=== PATIENT | male | born 1985 | race Caucasian/White ===

== ENCOUNTER 2016-11-24 00:27 | Inpatient (IN) | payer SELFPAY ==
[2016-11-24] VITALS (13 sets, daily range): BP systolic 143–181; BP diastolic 95–113; PULSE 62–87; RESP 13–20; TEMP 97.9–98.5; O2SAT 94–100
[~2016-11-24] VITALS: Ht 180.3 cm; Wt 67.7 kg
[~2016-11-24 00:27] MED LIST: DOXY100T PO; ULTR50TA5 PO
[2016-11-24] MEDS ORDERED: IOHEXOL 350 MG/ML 10 ML VIAL (for RAD DIAG) IVCONTRAST ONE (00:28)
[2016-11-24] MEDS ORDERED: SODIUM CHLORIDE 0.9% FLUSH 10 ML FLUSH IVF PRN (00:45)
[2016-11-24] MEDS ORDERED: SODIUM CHLOR 0.9% 1000 ML INJ 1,000 ML IV ONE (00:45)
[2016-11-24 00:48] LABS: AUTOMATED NEUTROPHIL # 5.9 TH/MM3 (1.8-7.7); BASOPHIL % 0.2 % (0.0-2.0); EOSINOPHIL # 0.1 TH/MM3 (0-0.4); EOSINOPHIL % 0.7 % (0.0-4.0); HEMATOCRIT 39.3 % (39.0-51.0); HEMO FLAGS DIFF FINAL; LYMPH % 33.8 % (9.0-44.0); LYMPHOCYTE # 3.6 TH/MM3 (1.0-4.8); MEAN CELL VOLUME 80.4 FL (80.0-100.0); MEAN CORPUSCULAR HEMOGLOBIN 26.6 PG (27.0-34.0); MEAN CORPUSCULAR HGB CONC 33.1 % (32.0-36.0); MONO % 9.4 % (0.0-8.0); NEUT % 55.9 % (16.0-70.0); PLATELET COUNT 405 TH/MM3 (150-450); RED BLOOD COUNT 4.89 MIL/MM3 (4.50-5.90); RED CELL DISTRIBUTION WIDTH 16.9 % (11.6-17.2); WHITE BLOOD COUNT 10.6 TH/MM3 (4.0-11.0)
[2016-11-24 01:02] LABS: APTT (PATIENT) 25.1 SEC (24.3-30.1)
[2016-11-24 01:06] LABS: BICARBONATE 27.7 MEQ/L (21.0-32.0)
[2016-11-24 01:08] LABS: POTASSIUM 2.6 MEQ/L (3.5-5.1)
--- NOTE | 2016-11-24 01:10 | PD ---
HPI Chief Complaint: RUE injury Time Seen by Provider: 00:31 Travel History International Travel<30 days: No Contact w/Intl Traveler<30days: No Traveled to known affect area: No History of Present Illness HPI 31-year-old male presents to the emergency department for complaint of severe pain in the forearm of the right upper extremity and inability to feel or move his right hand or fingers after injecting Michelle. Patient reports injecting Michelle approximately 20 minutes prior to arrival to the emergency department and onset of symptoms began shortly after he injected Michelle into the right upper extremity just proximal to the antecubital fossa. Patient denies other concerns or complaints. Denies any swelling of the arm or forearm. Denies other injury to the extremity prior to injecting the Michelle. No chest pain or shortness of breath no upper arm or axilla pain. PFSH Past Medical History Asthma: Yes (as a child) Heart Rhythm Problems: Yes (hx of svt) Diminished Hearing: No Kidney Stones: Yes Musculoskeletal: Yes (CHRONIC NECK AND BACK PAIN) Immunizations Current: No Social History Alcohol Use: Yes (occas. beer) Tobacco Use: No (quit 2 yrs ago smoked 1/2 ppd) Substance Use: Yes (hx of iv dilaudid and smoked Pot) Allergies-Medications (Allergen,Severity, Reaction): Coded Allergies: No Known Allergies (Verified , 11/24/16) Reported Meds & Prescriptions Reported Meds & Active Scripts Active No Active Prescriptions or Reported Medications Review of Systems Except as stated in HPI: all other systems reviewed are Neg General / Constitutional: No: Fever HENT: No: Congestion Cardiovascular: No: Chest Pain or Discomfort Respiratory: No: Shortness of Breath Gastrointestinal: No: Nausea, Vomiting Genitourinary: No: Flank Pain Musculoskeletal: Positive: Cramping, Pain (severe RUE pain) Skin: No Rash Neurologic: Positive: Paresthesia, No: Weakness Hematologic/Lymphatic: No: Lymph Node Enlargement Physical Exam Narrative GENERAL: Well-developed well-nourished male in obvious distress no respiratory distress SKIN: Warm and dry. HEAD: Normocephalic. EYES: No scleral icterus. No injection or drainage. NECK: Supple, trachea midline. No JVD or lymphadenopathy. CARDIOVASCULAR: Regular rate and rhythm without murmurs, gallops, or rubs. RESPIRATORY: Breath sounds equal bilaterally. No accessory muscle use. GASTROINTESTINAL: Abdomen soft, non-tender, nondistended. MUSCULOSKELETAL: No cyanosis, or edema. Attention right upper extremity patient has glove like distribution of right hand pallor and coolness of the right hand with inability to perform active range of motion and no pain on passive range of motion of each digit with no capillary refill is identified; patient does have palpable 2+ radial aa pulse palpable 1 +ulnar aa pulse palpable 2 + brachial aa pulses and palpable 2+ axillary aa pulse as well as pulses are confirmed by Doppler at bedside. No pain in forearm with range of motion of the right wrist at elbow or of the shoulder. No edema of the upper arm, forearm or hand. BACK: Nontender without obvious deformity. No CVA tenderness. Data Data Last Documented VS Vital Signs Date Time Temp Pulse Resp B/P (MAP) Pulse Ox O2 Delivery O2 Flow Rate FiO2 11/24/16 02:45 74 20 174/95 (121) 100 Room Air 11/24/16 00:30 98.2 Orders Orders Electrocardiogram (11/24/16 00:31) Basic Metabolic Panel (Bmp) (11/24/16 00:31) Complete Blood Count With Diff (11/24/16 00:31) Magnesium (Mg) (11/24/16 00:31) Prothrombin Time / Inr (Pt) (11/24/16 00:31) Act Partial Throm Time (Ptt) (11/24/16 00:31) Ecg Monitoring (11/24/16 00:31) Bilateral Bp Monitoring (11/24/16 00:31) Iv Access Insert/Monitor (11/24/16 00:31) Oximetry (11/24/16 00:31) Oxygen Administration (11/24/16 00:31) Sodium Chloride 0.9% Flush (Ns Flush) (11/24/16 00:45) Drug Screen, Random Urine (11/24/16 00:31) Cta Up Extrem W Iv Cont W 3d (11/24/16 ) Sodium Chlor 0.9% 1000 Ml Inj (Ns 1000 M (11/24/16 00:45) NPO (11/24/16 01:12) Potassium Chlor 10 Meq Premix (Kcl 10 Me (11/24/16 01:15) Ondansetron Inj (Zofran Inj) (11/24/16 01:30) Morphine Inj (Morphine Inj) (11/24/16 01:30) Forearm (2vws) (11/24/16 ) Hand, Complete ([id number]) (11/24/16 ) Iohexol 350 Inj (Omnipaque 350 Inj) (11/24/16 00:28) Heparin Inj (Heparin Inj) (11/24/16 02:45) Heparin-D5w 25,000 U/250 Ml (Heparin-D5w (11/24/16 02:45) Cbc No Diff, Includes Plts (11/27/16 06:00) Act Partial Throm Time (Ptt) (11/24/16 09:36) Occult Blood (Hemoccult) Stool (11/24/16 02:36) Admit Order (Ed Use Only) (11/24/16 02:47) Type And Screen (11/24/16 02:49) Admit To Inpatient (11/24/16 ) Vital Signs (Adult) Q4H (11/24/16 02:47) Diet Npo (11/24/16 Breakfast) Sodium Chlor 0.9% 1000 Ml Inj (Ns 1000 M (11/24/16 02:47) Sodium Chloride 0.9% Flush (Ns Flush) (11/24/16 03:00) Sodium Chloride 0.9% Flush (Ns Flush) (11/24/16 09:00) Ondansetron Inj (Zofran Inj) (11/24/16 03:00) Comprehensive Metabolic Panel (11/25/16 06:00) Complete Blood Count With Diff (11/25/16 06:00) Scd Bilateral/Knee High PARISA.BID (11/24/16 02:47) Hydromorphone Pf Inj (Dilaudid Pf Inj) (11/24/16 03:00) Hydromorphone Pf Inj (Dilaudid Pf Inj) (11/24/16 03:00) Naloxone Inj (Narcan Inj) (11/24/16 03:00) Magnesium Hydroxide Liq (Milk Of Magnesi (11/24/16 03:00) Inpatient Certification (11/24/16 ) Potassium Chlor 20 Meq Premix (Kcl 20 Me (11/24/16 03:00) Labs Laboratory Tests Test 11/24/16 00:35 11/24/16 01:25 White Blood Count 10.6 TH/MM3 Red Blood Count 4.89 MIL/MM3 Hemoglobin 13.0 GM/DL Hematocrit 39.3 % Mean Corpuscular Volume 80.4 FL Mean Corpuscular Hemoglobin 26.6 PG Mean Corpuscular Hemoglobin Concent 33.1 % Red Cell Distribution Width 16.9 % Platelet Count 405 TH/MM3 Mean Platelet Volume 7.5 FL Neutrophils (%) (Auto) 55.9 % Lymphocytes (%) (Auto) 33.8 % Monocytes (%) (Auto) 9.4 % Eosinophils (%) (Auto) 0.7 % Basophils (%) (Auto) 0.2 % Neutrophils # (Auto) 5.9 TH/MM3 Lymphocytes # (Auto) 3.6 TH/MM3 Monocytes # (Auto) 1.0 TH/MM3 Eosinophils # (Auto) 0.1 TH/MM3 Basophils # (Auto) 0.0 TH/MM3 CBC Comment DIFF FINAL Differential Comment Prothrombin Time 11.0 SEC Prothromb Time International Ratio 1.0 RATIO Activated Partial Thromboplast Time 25.1 SEC Blood Urea Nitrogen 7 MG/DL Creatinine 0.95 MG/DL Random Glucose 147 MG/DL Calcium Level 8.6 MG/DL Magnesium Level 2.0 MG/DL Sodium Level 136 MEQ/L Potassium Level 2.6 MEQ/L Chloride Level 98 MEQ/L Carbon Dioxide Level 27.7 MEQ/L Anion Gap 10 MEQ/L Estimat Glomerular Filtration Rate 92 ML/MIN Urine Opiates Screen POS Urine Barbiturates Screen NEG Urine Amphetamines Screen NEG Urine Benzodiazepines Screen POS Urine Cocaine Screen POS Urine Cannabinoids Screen POS MDM Medical Decision Making Medical Screen Exam Complete: Yes Emergency Medical Condition: Yes Medical Record Reviewed: Yes Interpretation(s) CBC & BMP Diagram 11/24/16 00:35 Calcium Level 8.6, Magnesium Level 2.0 Vital Signs Date Time Temp Pulse Resp B/P (MAP) Pulse Ox O2 Delivery O2 Flow Rate FiO2 11/24/16 00:55 64 20 178/103 (128) 94 Room Air 11/24/16 00:50 95 Room Air 11/24/16 00:50 95 Room Air 11/24/16 00:50 70 20 171/110 (130) 95 Room Air 170/108 (128) 11/24/16 00:40 68 20 181/113 (135) 96 Room Air 11/24/16 00:30 98.2 80 20 179/111 (133) 95 EKG sinus rhythm rate [address] elevation or ectopy noted CTA RUE: CONCLUSION: 1. Occlusion of the ulnar artery approximately 5 cm distal to its origin and occlusion of the proximal radial artery associated with forearm soft tissue swelling. Findings could be related to an early compartment syndrome. Jayesh Farris MD on November 24, 2016 at 2:15 Board Certified Radiologist. This report was verified electronically. Differential Diagnosis Limb ischemia, compartment syndrome, acute foreign body embolic event, acute vessel dissection, acute chemical vasoconstriction Narrative Course @ 12:59 Ulnar pulse not palpable or Doppler-able patient en route to CT; radial brachial axillary remain palpable and confirmed with Doppler; forearm soft no tense firmness of the forearm or upper arm; Recommendation per vascular and hand surgeons--transfer to [facility] @ 1:[address] radial brachial ax pulses remain 2+ to palpation and Doppler, no ulnar aa pulse; Forearm soft non-tense muscle bellies; potassium replacement IV for K: 2.[address] with no palpable tenseness of the right forearm right hand remains pale and cold with some mild flexion is now starting to develop discomfort in the forearm with range of motion and this has been conveyed to the hand surgeon. Call back to the past year surgeon who recommends patient's care requires micro-vascular surgeon expertise and recommend patient be transferred to higher level of care facility call placed to [facility] Patient's case discussed with [facility] vascular surgeon Dr. Acosta refuses patient's transfer Patient with noted swelling of the forearm @ 2 AM rohit measurements 38/28; call placed to Dr Edward --reports can present to [facility] and perform fasciotomy; requests call to Dr Briones in interim CTA resulted and consistent with eqarly compartment syndrome --this has been conveyed to DR Edward and Dr Briones --request patient to be transferred to [facility] ED emergent; Heparin infusion started; call placed to [facility] ED MD notifying of emergent transfer and to notify Dr Santos upon patient arrival @ 3:10 AM patient leaving ED by EMS @ 3:[address] Pierre patient should be arriving soon --per Dr Pierre just arrived ; call placed to Dr Briones aware patient in E pod in the ED Critical Care Narrative Aggregate critical care time was 55 minutes. Time to perform other separately billable procedures was not included in the critical care time. My time did not include minutes spent treating any other patients simultaneously or on activities that did not directly contribute to the patient's treatment. The services I provided to this patient were to treat and/or prevent clinically significant deterioration that could result in: limb neurovascular motor dysfunction, amputation, I provided critical care services requiring my management, as noted below: Chart data review, documentation time, medication orders and management, vital sign assessments/reviewing monitor data, ordering and reviewing lab tests, ordering and interpreting/reviewing x-rays and diagnostic studies, care of the patient and discussion of the patient with the admitting physicians. Physician Communication Physician Communication discussed with Dr Victor vascular surgeon; discussed with Dr Edward hand surgeon; call placed to [facility] discussed with patient with Dr Acosta @ 1:38 AM will not accept patient in transfer of care as we have vascular surgeon; call placed to Dr Edward and Dr Briones; CTA resulted 2:31 --will accept patient transfer ED to ED to OR, admit to medicine service; call placed to [facility] ED Dr Pierre; discussed with Dr Jerome Diagnosis Primary Impression: Ischemia of hand Additional Impressions: Ischemia of digits of hand Compartment syndrome of hand Qualified Codes: T79.A11A - Traumatic compartment syndrome of right upper extremity, initial encounter Compartment syndrome of right upper extremity Qualified Codes: T79.A11A - Traumatic compartment syndrome of right upper extremity, initial encounter Admitting Information Admitting Physician Requests: Admit Scripts No Active Prescriptions or Reported Meds Jane Orozco MD Nov 24, 2016 01:10
[2016-11-24] MEDS ORDERED: POTASSIUM CHLOR 10 MEQ PREMIX 100 ML IV SCH (01:15)
[2016-11-24] MEDS ORDERED: MORPHINE SULFATE 4 MG/ML INJ IV PUSH ONE (01:30)
[2016-11-24] MEDS ORDERED: ONDANSETRON HCL 4 MG/2 ML VIAL IV PUSH ONE (01:30)
--- NOTE | 2016-11-24 02:07 | RADRPT ---
EXAM DATE/TIME: 11/24/2016 01:30 [facility] COMPARISON: No previous studies available for comparison. INDICATIONS : Evaluate for foreign body. Patient states numbness and muscle tightness after drug injection into arm 1 hour ago. MEDICAL HISTORY : Previous right forearm fracture SURGICAL HISTORY : None. ENCOUNTER: Initial ACUITY: 1 day PAIN SCORE: 0/10 LOCATION: Right proximal forearm FINDINGS: Two view examination of the right forearm demonstrates no evidence of fracture or dislocation. Bony mineralization is normal. The soft tissue structures are swollen. CONCLUSION: 1. Soft tissue swelling of the forearm. No radiopaque foreign body or acute bony abnormality. Jayesh Farris MD on November 24, 2016 at 2:05 Board Certified Radiologist. This report was verified electronically.
--- NOTE | 2016-11-24 02:09 | RADRPT ---
EXAM DATE/TIME: 11/24/2016 01:30 [facility] COMPARISON: No previous studies available for comparison. INDICATIONS : Evaluate for foreign body. Patient states numbness and muscle tightness after drug injection into arm 1 hour ago. MEDICAL HISTORY : None. SURGICAL HISTORY : None. ENCOUNTER: Initial ACUITY: 1 day PAIN SCORE: 0/10 LOCATION: Right entire hand FINDINGS: Three view examination of the right hand demonstrates no soft tissue swelling, dislocation, or fractu re. The carpal bones appear intact. The interphalangeal and metacarpophalangeal joints are intact. Bony mineralization is normal. CONCLUSION: 1. No acute findings. No radiopaque foreign body identified. Jayesh Farris MD on November 24, 2016 at 2:06 Board Certified Radiologist. This report was verified electronically.
--- NOTE | 2016-11-24 02:27 | RADRPT ---
EXAM DATE/TIME: 11/24/2016 01:01 [facility] COMPARISON: No previous studies available for comparison. INDICATIONS : Patient states he injected himself in the right AC with an unknown drug and now has no feeling in his lower arm and hand. IV CONTRAST: 95 cc Omnipaque 350 (iohexol) IV RADIATION DOSE: 7.11 CTDIvol (mGy) MEDICAL HISTORY : None SURGICAL HISTORY : None. ENCOUNTER: Initial ACUITY: 1 day PAIN SCALE: 9/10 LOCATION: Right distal arm TECHNIQUE: Volumetric scanning was performed using a multirow detector CT scanner. Using automated exposure cont rol and adjustment of the mA and/or kV according to patient size, radiation dose was kept as low as r easonably achievable to obtain optimal diagnostic quality images. The data was post processed with a variety of visualization algorithms including full-volume maximum intensity projection, multiplanar sliding thin-slab reformation, curved-planar reformation, and surface-rendering techniques. Using au tomated exposure control and adjustment of the mA and/or kV according to patient size, radiation dose was kept as low as reasonably achievable to obtain optimal diagnostic quality images. DICOM format image data is available electronically for review and comparison. FINDINGS: The subclavian, axillary and brachial arteries are patent. The adjacent veins are also patent in the upper arm. The brachial artery is seen to bifurcate into radial and ulnar arteries in the antecubital region. Th e ulnar artery becomes occluded about 5 cm beyond its origin in the forearm musculature. The radial a rtery also appears to become occluded proximally. There is some patent predominantly venous vasculatu re subcutaneously noted along the radius. There is soft tissue swelling in the forearm musculature. CONCLUSION: 1. Occlusion of the ulnar artery approximately 5 cm distal to its origin and occlusion of the proxima l radial artery associated with forearm soft tissue swelling. Findings could be related to an early c ompartment syndrome. Jayesh Farris MD on November 24, 2016 at 2:15 Board Certified Radiologist. This report was verified electronically.
[2016-11-24] MEDS ORDERED: HEPARIN-D5W 25,000 U/250 ML 250 ML IV PRN (02:45)
[2016-11-24] MEDS ORDERED: HEPARIN SODIUM - IV 10,000 UNITS/10 ML VIAL IV PUSH ONE (02:45)
--- NOTE | 2016-11-24 02:45 | PD.ORT.PN ---
Objective Vitals Vital Signs Date Time Temp Pulse Resp B/P (MAP) Pulse Ox O2 Delivery O2 Flow Rate FiO2 11/24/16 01:50 68 20 177/107 (130) 96 Room Air 11/24/16 01:20 82 20 180/102 (128) 98 Room Air 11/24/16 00:55 64 20 178/103 (128) 94 Room Air 11/24/16 00:50 95 Room Air 11/24/16 00:50 95 Room Air 11/24/16 00:50 70 20 171/110 (130) 95 Room Air 170/108 (128) 11/24/16 00:40 68 20 181/113 (135) 96 Room Air 11/24/16 00:30 98.2 80 20 179/111 (133) 95 I/O 11/23/16 11/23/16 11/23/16 11/24/16 11/24/16 11/24/16 07:00 15:00 23:00 07:00 15:00 23:00 Intake Total 1000 ml Output Total 100 ml Balance 900 ml Intake IV Total 1000 ml Output Urine Total 100 ml # Voids 1 Result Diagram: 11/24/16 0035 11/24/16 0035 Other Results Laboratory Tests Test 11/24/16 00:35 Prothromb Time International Ratio 1.0 RATIO Prothrombin Time 11.0 SEC (9.8-11.6) Assessment & Plan Assessment and Plan Called by ER physician Dr Orozco around 12:42am for patient with cold hand without capillary refill but palpable radial pulse and soft forearm and hand compartments after IVDU. Patient on way to CTA. I Recommend transfer to level 1 trauma center for microvascular consult. Called again by ER around 2:03am stating worsening swelling of forearm with concern for compartment syndrome. No change in hand exam. CTA showed occlusion of radial and ulnar arteries. Local level 1 trauma centers refused patient. Discussed case with Dr Hardwick of trauma/vascular surgery and Dr Orozco. Dr Hardwick stated he would perform fasciotomies at [facility] and perform vascular surgery and that my services were not needed at this time. If patient requires future care of the hand including possible amputations he should be transferred to level 1 trauma center for possible reconstruction. Kayla Edward MD Nov 24, 2016 02:45
[2016-11-24] MEDS: SODIUM CHLOR 0.9% 1000 ML INJ 1,000 ML IV SCH ×3 (02:47→21:37)
[2016-11-24] MEDS: POTASSIUM CHLOR 20 MEQ PREMIX 100 ML IV SCH ×2 (03:00→08:04)
[2016-11-24] MEDS ORDERED: ONDANSETRON HCL 4 MG/2 ML VIAL IVP PRN (03:00)
[2016-11-24] MEDS ORDERED: NALOXONE HCL 0.4 MG/ML AMP IV PUSH PRN (03:00)
[2016-11-24] MEDS ORDERED: SODIUM CHLORIDE 0.9% FLUSH 10 ML FLUSH IV FLUSH PRN ×2 (03:00→05:30)
[2016-11-24] MEDS ORDERED: HYDROmorphone HCL PF 1 MG/ML VIAL IV PUSH ONE (03:00)
[2016-11-24] MEDS ORDERED: MAGNESIUM HYDROXIDE SUSP 30 ML CUP PO PRN (03:00)
[2016-11-24] MEDS: HYDROmorphone HCL PF 1 MG/ML VIAL IV PUSH PRN ×8 (03:53→23:59)
--- NOTE | 2016-11-24 04:03 | PD ---
Physical Exam Narrative Received sign out from [place] ED physician Dr. Orozco who is transferring the pt from ED to ED for compartment syndrome of right forearm and emergent fasciotomy. Dr. Hardwick has already been called by Dr. Orozco and notified of pt's arrival. I also spoke with Dr. Hardwick. Pt is currently NPO and on heparin drip. Dr. Jerome already knows about the patient and came down to admit the patient. Pt transferred to the OR after Dr. Hardwick arrived and evaluated the patient. Data Data Last Documented VS Vital Signs Date Time Temp Pulse Resp B/P (MAP) Pulse Ox O2 Delivery O2 Flow Rate FiO2 11/24/16 02:45 74 20 174/95 (121) 100 Room Air 11/24/16 00:30 98.2 Orders Orders Electrocardiogram (11/24/16 00:31) Basic Metabolic Panel (Bmp) (11/24/16 00:31) Complete Blood Count With Diff (11/24/16 00:31) Magnesium (Mg) (11/24/16 00:31) Prothrombin Time / Inr (Pt) (11/24/16 00:31) Act Partial Throm Time (Ptt) (11/24/16 00:31) Ecg Monitoring (11/24/16 00:31) Bilateral Bp Monitoring (11/24/16 00:31) Iv Access Insert/Monitor (11/24/16 00:31) Oximetry (11/24/16 00:31) Oxygen Administration (11/24/16 00:31) Sodium Chloride 0.9% Flush (Ns Flush) (11/24/16 00:45) Drug Screen, Random Urine (11/24/16 00:31) Cta Up Extrem W Iv Cont W 3d (11/24/16 ) Sodium Chlor 0.9% 1000 Ml Inj (Ns 1000 M (11/24/16 00:45) NPO (11/24/16 01:12) Potassium Chlor 10 Meq Premix (Kcl 10 Me (11/24/16 01:15) Ondansetron Inj (Zofran Inj) (11/24/16 01:30) Morphine Inj (Morphine Inj) (11/24/16 01:30) Forearm (2vws) (11/24/16 ) Hand, Complete ([id number]) (11/24/16 ) Iohexol 350 Inj (Omnipaque 350 Inj) (11/24/16 00:28) Heparin Inj (Heparin Inj) (11/24/16 02:45) Heparin-D5w 25,000 U/250 Ml (Heparin-D5w (11/24/16 02:45) Admit Order (Ed Use Only) (11/24/16 02:47) Type And Screen (11/24/16 02:49) Admit To Inpatient (11/24/16 ) Vital Signs (Adult) Q4H (11/24/16 02:47) Sodium Chlor 0.9% 1000 Ml Inj (Ns 1000 M (11/24/16 02:47) Sodium Chloride 0.9% Flush (Ns Flush) (11/24/16 03:00) Sodium Chloride 0.9% Flush (Ns Flush) (11/24/16 09:00) Ondansetron Inj (Zofran Inj) (11/24/16 03:00) Comprehensive Metabolic Panel (11/25/16 06:00) Complete Blood Count With Diff (11/25/16 06:00) Scd Bilateral/Knee High PARISA.BID (11/24/16 02:47) Hydromorphone Pf Inj (Dilaudid Pf Inj) (11/24/16 03:00) Hydromorphone Pf Inj (Dilaudid Pf Inj) (11/24/16 03:00) Naloxone Inj (Narcan Inj) (11/24/16 03:00) Magnesium Hydroxide Liq (Milk Of Magnesi (11/24/16 03:00) Inpatient Certification (11/24/16 ) Potassium Chlor 20 Meq Premix (Kcl 20 Me (11/24/16 03:00) Labs Laboratory Tests Test 11/24/16 00:35 11/24/16 01:25 White Blood Count 10.6 TH/MM3 Red Blood Count 4.89 MIL/MM3 Hemoglobin 13.0 GM/DL Hematocrit 39.3 % Mean Corpuscular Volume 80.4 FL Mean Corpuscular Hemoglobin 26.6 PG Mean Corpuscular Hemoglobin Concent 33.1 % Red Cell Distribution Width 16.9 % Platelet Count 405 TH/MM3 Mean Platelet Volume 7.5 FL Neutrophils (%) (Auto) 55.9 % Lymphocytes (%) (Auto) 33.8 % Monocytes (%) (Auto) 9.4 % Eosinophils (%) (Auto) 0.7 % Basophils (%) (Auto) 0.2 % Neutrophils # (Auto) 5.9 TH/MM3 Lymphocytes # (Auto) 3.6 TH/MM3 Monocytes # (Auto) 1.0 TH/MM3 Eosinophils # (Auto) 0.1 TH/MM3 Basophils # (Auto) 0.0 TH/MM3 CBC Comment DIFF FINAL Differential Comment Prothrombin Time 11.0 SEC Prothromb Time International Ratio 1.0 RATIO Activated Partial Thromboplast Time 25.1 SEC Blood Urea Nitrogen 7 MG/DL Creatinine 0.95 MG/DL Random Glucose 147 MG/DL Calcium Level 8.6 MG/DL Magnesium Level 2.0 MG/DL Sodium Level 136 MEQ/L Potassium Level 2.6 MEQ/L Chloride Level 98 MEQ/L Carbon Dioxide Level 27.7 MEQ/L Anion Gap 10 MEQ/L Estimat Glomerular Filtration Rate 92 ML/MIN Urine Opiates Screen POS Urine Barbiturates Screen NEG Urine Amphetamines Screen NEG Urine Benzodiazepines Screen POS Urine Cocaine Screen POS Urine Cannabinoids Screen POS MDM Supervised Visit with CARL: No Diagnosis Primary Impression: Ischemia of hand Additional Impressions: Ischemia of digits of hand Compartment syndrome of hand Qualified Codes: T79.A11A - Traumatic compartment syndrome of right upper extremity, initial encounter Compartment syndrome of right upper extremity Qualified Codes: T79.A11A - Traumatic compartment syndrome of right upper extremity, initial encounter Scripts No Active Prescriptions or Reported Meds Loraine Pierre DO Nov 24, 2016 04:03
--- NOTE | 2016-11-24 04:05 | HHI.HP ---
[facility] No Primary Care Physician Admission Diagnosis RUE compartment syndrome; limb ischemia Diagnoses: Travel History International Travel<30 Days: No Contact w/Intl Traveler <30 Da: No Traveled to Known Affected Are: No History of Present Illness Mr. Roy is a 31-year-old male. He has a past history of IV drug abuse and polysubstance abuse. He came into the emergency department today with a stiff right forearm. This occurred approximately 20 minutes after injecting "Michelle" into his right forearm. Compartment syndrome appears to be present. The patient has no other past medical history other than IV drug abuse. He is also noted to have hypokalemia and be positive for cocaine. The patient is quite fearful about what is currently happening. Surgical intervention is planned and pending. No other complaints from the patient. He was feeling fine before this. Review of Systems Constitutional: DENIES: Fatigue, Fever, Chills, Night Sweats Eyes: DENIES: Blurred vision, Diplopia, Eye inflammation, Eye pain Ears, nose, mouth, throat: DENIES: Tinnitus, Hearing loss, Vertigo, Nasal discharge Respiratory: DENIES: Apneas, Cough, Wheezing, Shortness of breath Cardiovascular: DENIES: Chest pain, Palpitations, Syncope Gastrointestinal: DENIES: Abdominal pain, Black stools, Bloody stools Musculoskeletal: COMPLAINS OF: Joint pain, Muscle aches, Stiffness, Joint Swelling Integumentary: COMPLAINS OF: Abnormal pigmentation, DENIES: Nail changes Hematologic/lymphatic: DENIES: Bruising, Lymphadenopathy Immunologic/allergic: DENIES: Eczema, Urticaria Neurologic: COMPLAINS OF: Paresthesias, DENIES: Abnormal gait, Headache, Localized weakness Psychiatric: COMPLAINS OF: Mood changes, DENIES: Anxiety, Confusion, Hallucinations Past Family Social History Past Medical History None Past Surgical History None Reported Medications Reported Meds & Active Scripts Active No Active Prescriptions or Reported Medications Allergies: Coded Allergies: No Known Allergies (Verified , 11/24/16) Active Ordered Medications Administered Medications Medications (Trade) Dose Ordered Sig/Corby Route PRN Reason Start Time Stop Time Status Last Admin Dose Admin Heparin Sodium/ Dextrose 250 ml @ 11 mls/hr TITRATE PRN IV Coagulation management 11/24/16 02:45 11/24/16 03:03 Sodium Chloride 1,000 ml @ 100 mls/hr Q10H IV 11/24/16 02:47 11/24/16 02:47 Hydromorphone HCl (Dilaudid Pf Inj) 1 mg Q3H PRN IV PUSH BREAKTHROUGH PAIN 11/24/16 03:00 11/24/16 03:53 Potassium Chloride 100 ml @ 50 mls/hr Q2H IV 11/24/16 03:00 11/24/16 06:59 11/24/16 03:00 Family History Patient reports no positive family history Social History Marijuana, cocaine, ecstasy, and other substances or abuse next line No reported alcohol abuse No reported nicotine abuse Physical Exam Vital Signs Vital Signs Date Time Temp Pulse Resp B/P (MAP) Pulse Ox O2 Delivery O2 Flow Rate FiO2 11/24/16 03:05 11/24/16 03:03 98.2 66 18 173/104 (127) 99 11/24/16 02:45 74 20 174/95 (121) 100 Room Air 11/24/16 01:50 68 20 177/107 (130) 96 Room Air 11/24/16 01:20 82 20 180/102 (128) 98 Room Air 11/24/16 00:55 64 20 178/103 (128) 94 Room Air 11/24/16 00:50 95 Room Air 11/24/16 00:50 95 Room Air 11/24/16 00:50 70 20 171/110 (130) 95 Room Air 170/108 (128) 11/24/16 00:40 68 20 181/113 (135) 96 Room Air 11/24/16 00:30 98.2 80 20 179/111 (133) 95 Physical Exam GENERAL: NAD, A&Ox3 HEAD: Normocephalic. NECK: Supple, trachea midline. No lymphadenopathy. EYES: No scleral icterus. No injection or drainage. CARDIOVASCULAR: Regular rate and rhythm without murmurs, gallops, or rubs. RESPIRATORY: Breath sounds equal bilaterally. No accessory muscle use. GASTROINTESTINAL: Abdomen soft, non-tender, nondistended. MUSCULOSKELETAL: No cyanosis, or edema. The patient's right forearm is excruciatingly tender and firm to palpation. The patient's right hand has dusky color. SKIN: Warm and dry. NEURO: No focal neurological deficitis. Laboratory Laboratory Tests Test 11/24/16 00:35 11/24/16 01:25 White Blood Count 10.6 Red Blood Count 4.89 Hemoglobin 13.0 Hematocrit 39.3 Mean Corpuscular Volume 80.4 Mean Corpuscular Hemoglobin 26.6 Mean Corpuscular Hemoglobin Concent 33.1 Red Cell Distribution Width 16.9 Platelet Count 405 Mean Platelet Volume 7.5 Neutrophils (%) (Auto) 55.9 Lymphocytes (%) (Auto) 33.8 Monocytes (%) (Auto) 9.4 Eosinophils (%) (Auto) 0.7 Basophils (%) (Auto) 0.2 Neutrophils # (Auto) 5.9 Lymphocytes # (Auto) 3.6 Monocytes # (Auto) 1.0 Eosinophils # (Auto) 0.1 Basophils # (Auto) 0.0 CBC Comment DIFF FINAL Differential Comment Prothrombin Time 11.0 Prothromb Time International Ratio 1.0 Activated Partial Thromboplast Time 25.1 Blood Urea Nitrogen 7 Creatinine 0.95 Random Glucose 147 Calcium Level 8.6 Magnesium Level 2.0 Sodium Level 136 Potassium Level 2.6 Chloride Level 98 Carbon Dioxide Level 27.7 Anion Gap 10 Estimat Glomerular Filtration Rate 92 Urine Opiates Screen POS Urine Barbiturates Screen NEG Urine Amphetamines Screen NEG Urine Benzodiazepines Screen POS Urine Cocaine Screen POS Urine Cannabinoids Screen POS Result Diagram: 11/24/16 0035 11/24/16 003 Caprini VTE Risk Assessment Caprini VTE Risk Assessment: No/Low Risk (score <= 1) Caprini Risk Assessment Model Point Value = 1 Point Value = 2 Point Value = 3 Point Value = 5 Age 41-60 Minor surgery BMI > 25 kg/m2 Swollen legs Varicose veins or History of unexplained or recurrent spontaneous Oral contraceptives or hormone replacement Sepsis (< 1 month) Serious lung disease, including pneumonia (< 1 month) Abnormal pulmonary function Acute myocardial infarction Congestive heart failure (< 1 month) History of inflammatory bowel disease Medical patient at bed rest Age 61-74 Arthroscopic surgery Major open surgery (> 45 min) Laparoscopic surgery (> 45 min) Malignancy Confined to bed (> 72 hours) Immobilizing plaster cast Central venous access Age >= 75 History of VTE Family history of VTE Factor V Leiden Prothrombin [id number] Lupus anticoagulant Anticardiolipin antibodies Elevated serum homocysteine Heparin-induced thrombocytopenia Other congenital or acquired thrombophilia Stroke (< 1 month) Elective arthroplasty Hip, pelvis, or leg fracture Acute spinal cord injury (< 1 month) Prophylaxis Regimen Total Risk Factor Score Risk Level Prophylaxis Regimen 0-1 Low Early ambulation 2 Moderate Order ONE of the following: *Sequential Compression Device (SCD) *Heparin 5000 units SQ BID 3-4 Higher Order ONE of the following medications: *Heparin 5000 units SQ TID *Enoxaparin/Lovenox 40 mg SQ daily (WT < 150 kg, CrCl > 30 mL/min) *Enoxaparin/Lovenox 30 mg SQ daily (WT < 150 kg, CrCl > 10-29 mL/min) *Enoxaparin/Lovenox 30 mg SQ BID (WT < 150 kg, CrCl > 30 mL/min) AND/OR *Sequential Compression Device (SCD) 5 or more Highest Order ONE of the following medications: *Heparin 5000 units SQ TID (Preferred with Epidurals) *Enoxaparin/Lovenox 40 mg SQ daily (WT < 150 kg, CrCl > 30 mL/min) *Enoxaparin/Lovenox 30 mg SQ daily (WT < 150 kg, CrCl > 10-29 mL/min) *Enoxaparin/Lovenox 30 mg SQ BID (WT < 150 kg, CrCl > 30 mL/min) AND *Sequential Compression Device (SCD) Assessment and Plan Problem List: (1) Compartment syndrome of right upper extremity ICD Code: T79.A11A - Traumatic compartment syndrome of right upper extremity, initial encounter Status: Acute (2) Compartment syndrome of hand ICD Code: T79.A19A - Traumatic compartment syndrome of unspecified upper extremity, initial encounter Status: Acute (3) Ischemia of hand ICD Code: I99.8 - Other disorder of circulatory system Status: Acute (4) Ischemia of digits of hand ICD Code: I99.8 - Other disorder of circulatory system Status: Acute Assessment and Plan Assessment and plan 31-year-old male admitted with compartment syndrome of the right forearm and right hand ischemia Right forearm compartment syndrome Right hand ischemia Vascular surgery consulted Plan to go to the OR immediately Fasciotomy likely needed Risk for losing right forearm/hand IV drug abuse Polysubstance abuse Follow for any evidence of withdrawals Treat withdrawals if needed DVT prophylaxis SCDs Physician Certification 2 Midnight Certification Type: Admission for Inpatient Services Order for Inpatient Services The services are ordered in accordance with Medicare regulations or non- Medicare payer requirements, as applicable. In the case of services not specified as inpatient-only, they are appropriately provided as inpatient services in accordance with the 2-midnight benchmark. Estimated LOS (days): 5 days is the estimated time the patient will need to remain in the hospital, assuming treatment plan goals are met and no additional complications. Post-Hospital Plan: Home Problem Qualifiers (1) Compartment syndrome of right upper extremity: Qualified Codes: T79.A11A - Traumatic compartment syndrome of right upper extremity, initial encounter (2) Compartment syndrome of hand: Qualified Codes: T79.A11A - Traumatic compartment syndrome of right upper extremity, initial encounter Catalino Jerome MD Nov 24, 2016 04:04
[2016-11-24] MEDS ORDERED: Post-op Orders (for Pharmacy) MISC XX ONE (05:30)
[2016-11-24] MEDS ORDERED: MEPERIDINE HCL 25 MG/ML VIAL IV PUSH PRN (05:50)
--- NOTE | 2016-11-24 05:51 | MP ---
cc: MICHELL OZUNA MD DATE OF SURGERY 11/24/2016 PREOPERATIVE DIAGNOSES 1. Ischemia of the right arm. 2. Compartment syndrome of the right lower arm status post injection of illegal drugs. OPERATIVE PROCEDURE 1. Right arm volar and dorsal fasciotomy. 2. Exploration of the vessels. 3. Wound VAC placement. SURGEON MD Anali ANESTHESIA General. ESTIMATED BLOOD LOSS 30 cc INDICATIONS FOR PROCEDURE This is 31-year-old male came to the [place] ER complaining of pain in the right arm after he injected crystal meth. The patient in next two hours developed compartment syndrome, underwent CT angiogram which revealed basically occlusion of the radial and ulnar arteries down the arm, hence the surgery. DETAILS OF PROCEDURE The patient prepped and draped in the usual fashion. The outline of both dorsal and volar fasciotomies are made by marker. Care is taken to start the incision in such a fashion as to go obliquely across the joints including the antecubital fossa as well as the wrist. Incision is now started from proximal to distal, carried out in an oblique fashion down and then toward the wrist and toward the thenar eminence. Incision is deepened with cautery. Small bleeders are coagulated and the antecubital vein is ligated. The fascia is now opened and muscle released. Muscle bulges out right away and it is viable. Care is taken to ligate the antecubital vein and open this fascia widely. The same is done at the level of the wrist where incision is carried down over to the thenar eminence and the carpal tunnel is released. The area is now irrigated with copious amounts of saline, meticulous hemostasis obtained. The brachial, ulnar and radial arteries are now explored initially with a Doppler. There is excellent brisk brachial pulse, ulnar and radial pulse throughout the vessel all the way down to the wrist. Satisfied with this outcome, the area is once more irrigated, then the arm is turned and dorsal fasciotomy is carried out basically straight up and down. Once this is completed, meticulous hemostasis is assured and then wound VAC placed. The patient tolerated the procedure well, is taken to the ICU. Michell PIERCE/CARIDAD /5:26 AM 5:34 AM
[2016-11-24] MEDS ORDERED: ENALAPRILAT 1.25 MG/ML VIAL ONE (06:31)
[2016-11-24] MEDS ORDERED: *morphine SULFATE 8 MG/ML PERIprocedure ONLY ONE (06:41)
[2016-11-24] MEDS ORDERED: DO NOT ADM ANY ANTICOAGULANT DRUGS PRN (06:45)
[2016-11-24] MEDS ORDERED: SODIUM CHLORIDE 0.9% FLUSH 10 ML FLUSH IV FLUSH SCH (09:00)
[2016-11-24] MEDS: SODIUM CHLORIDE 0.9% FLUSH 10 ML FLUSH IV FLUSH SCH ×2 (09:00→21:00)
--- NOTE | 2016-11-24 09:07 | EKG ---
Date Performed: 11/24/2016 Time Performed: 00:32:48 PTAGE: 31 years EKG: Sinus rhythm WITH SINUS ARRHYTHMIA NORMAL ECG PREVIOUS TRACING : 10/17/2014 13.16 No significant change from previous tracing noted. DOCTOR: Simon Pineda Interpretating Date/Time 11/24/2016 09:07:21
--- NOTE | 2016-11-24 09:59 | HHI.PR ---
Subjective Remarks Follow-up ischemia right hand/compartment syndrome right hand 11/24/16-patient seen and examined, status post right hand fasciotomy with wound VAC placement. Complains of poorly controlled pain. Afebrile Objective Vitals Vital Signs Date Time Temp Pulse Resp B/P (MAP) Pulse Ox O2 Delivery O2 Flow Rate FiO2 11/24/16 08:29 17 11/24/16 07:16 98.4 82 22 179/95 (123) 99 Room Air 11/24/16 07:00 71 22 159/101 (120) 99 Room Air 11/24/16 06:45 70 22 149/90 (109) 99 Room Air 11/24/16 06:30 70 22 164/94 (117) 98 Room Air 11/24/16 06:15 73 18 155/103 (120) 99 Room Air 11/24/16 06:00 96 20 167/103 (124) 100 Room Air 11/24/16 05:45 97.8 80 20 172/100 (124) 95 Simple Mask 6 11/24/16 04:17 11/24/16 04:00 71 20 162/106 (124) 97 Room Air 11/24/16 03:05 11/24/16 03:03 98.2 66 18 173/104 (127) 99 11/24/16 02:45 74 20 174/95 (121) 100 Room Air 11/24/16 01:50 68 20 177/107 (130) 96 Room Air 11/24/16 01:20 82 20 180/102 (128) 98 Room Air 11/24/16 00:55 64 20 178/103 (128) 94 Room Air 11/24/16 00:50 95 Room Air 11/24/16 00:50 95 Room Air 11/24/16 00:50 70 20 171/110 (130) 95 Room Air 170/108 (128) 11/24/16 00:45 Room Air 11/24/16 00:40 68 20 181/113 (135) 96 Room Air 11/24/16 00:30 98.2 80 20 179/111 (133) 95 I/O 11/23/16 11/23/16 11/23/16 11/24/16 11/24/16 11/24/16 07:00 15:00 23:00 07:00 15:00 23:00 Intake Total 2860 ml Output Total 755 ml 250 ml Balance 2105 ml -250 ml Intake Oral 60 ml IV Total 1800 ml Other 1000 ml Output Urine Total 750 ml 250 ml Estimated Blood Loss 5 ml # Voids 1 Result Diagram: 11/24/163411/24/1634 Objective Remarks GENERAL: NAD SKIN: Warm and dry. HEAD: Normocephalic. EYES: No scleral icterus. No injection or drainage. NECK: Supple, trachea midline. No JVD or lymphadenopathy. CARDIOVASCULAR: Regular rate and rhythm without murmurs, gallops, or rubs. RESPIRATORY: Breath sounds equal bilaterally. No accessory muscle use. GASTROINTESTINAL: Abdomen soft, non-tender, nondistended. MUSCULOSKELETAL: No cyanosis, or edema. Wound VAC in place; R>L hand in size; neurovascular intact BACK: Nontender without obvious deformity. No CVA tenderness. Procedures 1. Right arm volar and dorsal fasciotomy. 2. Exploration of the vessels. 3. Wound VAC placement. A/P Problem List: (1) Compartment syndrome of right upper extremity ICD Code: T79.A11A - Traumatic compartment syndrome of right upper extremity, initial encounter Status: Acute (2) Compartment syndrome of hand ICD Code: T79.A19A - Traumatic compartment syndrome of unspecified upper extremity, initial encounter Status: Acute (3) Ischemia of hand ICD Code: I99.8 - Other disorder of circulatory system Status: Acute (4) Ischemia of digits of hand ICD Code: I99.8 - Other disorder of circulatory system Status: Acute Assessment and Plan 31-year-old male with Ischemia of right hand Compartment syndrome or right upper extremity Status post 1. Right arm volar and dorsal fasciotomy. 2. Exploration of the vessels.3. Wound VAC placement. Management by vascular surgery Wound VAC management per surgery Adjust pain management accordingly Elevated BP without diagnosis of hypertension 2/2 poorly controlled pain Vasotec when necessary Consider low-dose BB if no improvement Hypokalemia Replace electrolyte and monitor IVDU Counseled to quit Check hepatitis profile secondary to history of IV drug use DVT prophylaxis: Bilateral SCDs Transfer to [facility] Problem Qualifiers (1) Compartment syndrome of right upper extremity: Qualified Codes: T79.A11A - Traumatic compartment syndrome of right upper extremity, initial encounter (2) Compartment syndrome of hand: Qualified Codes: T79.A11A - Traumatic compartment syndrome of right upper extremity, initial encounter Bear Bunch MD Nov 24, 2016 09:59
[2016-11-24] MEDS ORDERED: ENALAPRILAT 2.5 MG/2 ML VIAL IV PUSH PRN (10:00)
[2016-11-24] MEDS ORDERED: POTASSIUM CHLORIDE 10 MEQ CONTROLLED RELEASE TAB PO ONE (10:45)
[2016-11-24] MEDS: ACETAMINOPHEN/HYDROcodone 325 MG/10 MG TAB PO PRN ×3 (11:06→22:31)
--- NOTE | 2016-11-24 13:49 | PD.CAR.PN ---
CVT Progress Note Subjective/Hospital Course: 11/24/16 Patient is status post the fasciotomy of the right arm with retrieval of excellent proximal and distal pulses Wound VAC in place draining serous and serosanguineous fluid Patient can move available with ease has partial sensation in the hand and has excellent strong palpable and dopplerable brachial pulse and Doppler brisk radial and ulnar pulse Due to hand swelling capillary refill in fingers is still decreased but hand is warm While the swelling of the arm has decreased somewhat it'll take a long time before the arm can be closed either by a skin graft or acellular matrix followed by skin graft Hand this no more swollen than yesterday and I have called Dr. Edward the hand surgeon for patient will probably need fasciotomy of the hand which is in the domain of the in pre billing specialist Objective: Vital Signs Date Time Temp Pulse Resp B/P (MAP) Pulse Ox O2 Delivery O2 Flow Rate FiO2 11/24/16 12:00 98.5 70 13 162/101 (121) 97 11/24/16 12:00 67 11/24/16 10:26 97 21 11/24/16 09:50 15 11/24/16 08:29 17 11/24/16 08:00 99 Room Air 11/24/16 08:00 62 11/24/16 08:00 97.9 87 18 163/104 (123) 97 11/24/16 07:16 98.4 82 22 179/95 (123) 99 Room Air 11/24/16 07:00 71 22 159/101 (120) 99 Room Air 11/24/16 06:45 70 22 149/90 (109) 99 Room Air 11/24/16 06:30 70 22 164/94 (117) 98 Room Air 11/24/16 06:15 73 18 155/103 (120) 99 Room Air 11/24/16 06:00 96 20 167/103 (124) 100 Room Air 11/24/16 05:45 97.8 80 20 172/100 (124) 95 Simple Mask 6 11/24/16 04:17 11/24/16 04:00 71 20 162/106 (124) 97 Room Air 11/24/16 03:05 11/24/16 03:03 98.2 66 18 173/104 (127) 99 11/24/16 02:45 74 20 174/95 (121) 100 Room Air 11/24/16 01:50 68 20 177/107 (130) 96 Room Air 11/24/16 01:20 82 20 180/102 (128) 98 Room Air 11/24/16 00:55 64 20 178/103 (128) 94 Room Air 11/24/16 00:50 95 Room Air 11/24/16 00:50 95 Room Air 11/24/16 00:50 70 20 171/110 (130) 95 Room Air 170/108 (128) 11/24/16 00:45 Room Air 11/24/16 00:40 68 20 181/113 (135) 96 Room Air 11/24/16 00:30 98.2 80 20 179/111 (133) 95 Result Diagram: 11/24/16 0035 11/24/16 0035 Michell Briones MD Nov 24, 2016 13:49
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
[2016-11-24] MEDS ORDERED: HYDROmorphone HCL PF 2 MG/ML VIAL ONE (16:19)
[2016-11-24] MEDS ORDERED: LACTATED RINGER'S 1000 ML INJ 2,000 ML ONE (16:48)
[2016-11-24] MEDS ORDERED: ceFAZolin INJ 1,000 MG VIAL IV ONE (17:22)
[2016-11-24] MEDS ORDERED: NEOMYCIN/POLYMYXIN 1 ML G.U. IRRIGANT IRRIGATION ONE (17:34)
[2016-11-24] MEDS ORDERED: *HYDROmorphone PF 1 MG VIAL PERIprocedural Use ONLY ONE ×2 (21:24→21:47)
--- NOTE | 2016-11-24 22:12 | PD.ORT.PN ---
Subjective Subjective Remarks Please see dictated notes for full details. Preoperatively patient reported decreased ROM right hand, paresthesias globally right hand, and worsening pain right hand. He is right hand dominant and admits to injecting Michelle into his right arm early this morning. Objective Vitals Vital Signs Date Time Temp Pulse Resp B/P (MAP) Pulse Ox O2 Delivery O2 Flow Rate FiO2 11/24/16 16:00 98.3 65 16 143/101 (115) 97 11/24/16 16:00 65 11/24/16 15:15 17 11/24/16 12:00 98.5 70 13 162/101 (121) 97 11/24/16 12:00 67 11/24/16 10:26 97 21 11/24/16 09:50 15 11/24/16 08:00 99 Room Air 11/24/16 08:00 62 11/24/16 08:00 97.9 87 18 163/104 (123) 97 11/24/16 07:16 98.4 82 22 179/95 (123) 99 Room Air 11/24/16 07:00 71 22 159/101 (120) 99 Room Air 11/24/16 06:45 70 22 149/90 (109) 99 Room Air 11/24/16 06:30 70 22 164/94 (117) 98 Room Air 11/24/16 06:15 73 18 155/103 (120) 99 Room Air 11/24/16 06:00 96 20 167/103 (124) 100 Room Air 11/24/16 05:45 97.8 80 20 172/100 (124) 95 Simple Mask 6 11/24/16 04:17 11/24/16 04:00 71 20 162/106 (124) 97 Room Air 11/24/16 03:05 11/24/16 03:03 98.2 66 18 173/104 (127) 99 11/24/16 02:45 74 20 174/95 (121) 100 Room Air 11/24/16 01:50 68 20 177/107 (130) 96 Room Air 11/24/16 01:20 82 20 180/102 (128) 98 Room Air 11/24/16 00:55 64 20 178/103 (128) 94 Room Air 11/24/16 00:50 95 Room Air 11/24/16 00:50 95 Room Air 11/24/16 00:50 70 20 171/110 (130) 95 Room Air 170/108 (128) 11/24/16 00:45 Room Air 11/24/16 00:40 68 20 181/113 (135) 96 Room Air 11/24/16 00:30 98.2 80 20 179/111 (133) 95 I/O 11/23/16 11/23/16 11/23/16 11/24/16 11/24/16 11/24/16 07:00 15:00 23:00 07:00 15:00 23:00 Intake Total 2860 ml 2380 ml Output Total 755 ml 250 ml 1250 ml Balance 2105 ml -250 ml 1130 ml Intake Oral 60 ml 480 ml IV Total 1800 ml 1900 ml Other 1000 ml Output Urine Total 750 ml 250 ml 750 ml Drainage Total 500 ml Estimated Blood Loss 5 ml # Voids 1 # Bowel Movements 0 Result Diagram: 11/24/16 0035 11/24/16 0035 Other Results Laboratory Tests Test 11/24/16 00:35 Prothromb Time International Ratio 1.0 RATIO Prothrombin Time 11.0 SEC (9.8-11.6) Imaging Last 24 hours Impressions Upper Extremity CTA 11/24/16 0000 Signed Impressions: Service Date/Time: Thursday, November 24, 2016 01:01 - CONCLUSION: 1. Occlusion of the ulnar artery approximately 5 cm distal to its origin and occlusion of the proximal radial artery associated with forearm soft tissue swelling. Findings could be related to an early compartment syndrome. Jayesh Farris MD Radius/Ulna X-Ray 11/24/16 0000 Signed Impressions: Service Date/Time: Thursday, November 24, 2016 01:30 - CONCLUSION: 1. Soft tissue swelling of the forearm. No radiopaque foreign body or acute bony abnormality. Jayesh Farris MD Hand X-Ray 11/24/16 0000 Signed Impressions: Service Date/Time: Thursday, November 24, 2016 01:30 - CONCLUSION: 1. No acute findings. No radiopaque foreign body identified. Jayesh Farris MD Objective Remarks Bulky dressing in place, VACs holding suction, 3 sec capillary refill to all fingers with dopplerable signal in the palmar arch and digital arteries Assessment & Plan Assessment and Plan 31yM POD0 s/p fasciotomies & VAC Dr Hardwick of vascular surgery now with worsening swelling right hand -Once called by Dr Hardwick scheduled patient for emergent hand fasciotomies, right carpal tunnel release, VAC change and placement, surgery as indicated -now POD0 w/p dorsal and volar deep forearm fasciotomies, carpal tunnel release , hand fasciotomies, VAC placement -Elevate right hand, OT for gentle ROM of fingers, no ROM wrist -VACs to 125mmHg continuous -VAC changes and closure per Dr Hardwick of vascular surgery, will continue to follow, patient had dopplerable signal in the palmar arch and digital arteries with 3 second capillary refill to all fingers following the procedure Kayla Edward MD Nov 24, 2016 22:12
[2016-11-24] MEDS: ENOXAPARIN SODIUM 40 MG/0.4 ML SYRINGE SQ SCH (22:31)
--- NOTE | 2016-11-24 22:47 | MB ---
cc: BRUCE KELLOGG DATE OF CONSULTATION 11/24/2016 REASON FOR CONSULTATION Concern for right hand compartment syndrome. HISTORY OF PRESENT ILLNESS Ian Roy is a 31-year-old male who initially presented to [facility] emergency room early this morning around approximately 12:30. I was called by the emergency room physician that a patient with nonpalpable pulses in the palm and a white hand but no signs of compartment syndrome. At that time I recommended consult of vascular and possible transfer to a level I trauma center for microvascular consult. I was called again by the emergency room around approximately 2:00 a.m. this morning with worsening swelling of the forearm. CTA showed occlusion of the radial and ulnar arteries in the proximal forearm. Level I trauma center refused the patient. I had a conference call with a Dr. Orozco in the emergency room and Dr. Briones of trauma/vascular surgery. I offered to perform fasciotomies of the forearm and hand at [facility] operating room but there is no team on site and would have to be called in. Dr. Briones recommended transfer of the patient to [facility] as there is a trauma team available and stated that he would perform the fasciotomies and would call me with any involvement of the hand. I was not called again until approximately at 2:[address] Briones stated that he did perform the dorsal and volar forearm fasciotomies and the patient had significant improvement in his symptoms including capillary refill to the fingers but now he had worsening swelling of the hand. At that time I recommended emergent fasciotomies of the hand. I scheduled the patient for emergent hand fasciotomies, carpal tunnel release, VAC placement surgery as indicated and presented to [facility] as soon as I finished the current surgery that I was scrubbed into at another facility. The patient states that he did inject Michelle IVD early this morning. He states he does have a past medical history significant for drug use including opiates, benzodiazepines, cocaine, marijuana and IV drug use including Dilaudid. He states he is right hand dominant. He states he does work. He reports worsening pain and paresthesias in the hand today, although somewhat improved from early this morning. He denies any prior problems with the right hand. PAST MEDICAL HISTORY SVT, back pain. SOCIAL HISTORY The patient smokes tobacco. Past medical history significant for marijuana, cocaine, benzodiazepines and opiates. Also significant for hepatitis C. ALLERGIES NO KNOWN DRUG ALLERGIES. PHYSICAL EXAMINATION GENERAL: On exam in the preop holding area the patient was alert and oriented. DIRECTED EXAMINATION: He reports pain in the hand. VAC was in place over the dorsal and volar aspects of the right forearm. The patient did have capillary refill to all of the fingers. Sensation present in the radial nerve distribution. Significantly decreased in the ulnar and median distribution but present. The patient was able to flex the thumb and fire the FPL. Unable to extend the thumb or fire the EPL. The patient had minimal range of motion of the fingers in regards to finger extension. Did have some firing to the flexor digitorum profundus of the index and middle finger. Otherwise, minimal movement of the hand. Significant swelling over the right hand. ASSESSMENT/PLAN A 31-year-old male status post forearm fasciotomies by Dr. Briones, now with worsening pain, swelling and paresthesias in the hand. At this time I recommended emergent hand fasciotomies, carpal tunnel release, placement of VAC surgery as indicated. The patient elected to proceed. He understands that he is at very high risk for long-term dysfunction of the hand including paresthesias, pain, stiffness, need for additional procedures, possible amputation and he elects to proceed. Again, this was done emergently. MD STACY Michael/VIRAJ /10:16 PM /10:32 PM ASHISH
--- NOTE | 2016-11-24 23:06 | MP ---
cc: BRUCE KELLOGG DATE OF SURGERY 11/24/16 PREOPERATIVE DIAGNOSIS 1. Compartment syndrome right hand 2. Carpal tunnel syndrome right hand. POSTOPERATIVE DIAGNOSIS 1. Compartment syndrome right hand 2. Carpal tunnel syndrome right hand. 3. Persistent compartment syndrome right forearm. PROCEDURE 1. Right hand fasciotomies 2. Right carpal tunnel release. 3. Deep dorsal forearm fasciotomies 4. Deep volar forearm fasciotomies 5. Placement of VAC dressing right forearm SURGEON Dr. Victor Hugo Kellogg ANESTHESIA General TOURNIQUET TIME 13 minutes at 250 mmHg DRAINS VAC INDICATIONS FOR PROCEDURE Please see prior notes. Nithin Roy is a 31-year-old male who injected IV drug into the right forearm and developed decreased perfusion to the right hand as well as compartment syndrome. He underwent forearm fasciotomies early this morning by Dr. Ravi around approximately 5:00 a.m.. I was called this afternoon for worsening pain, swelling, paresthesias in the hand. I recommended emergent right hand fasciotomies, right carpal tunnel release Surgery as indicated and the patient elected to proceed. Again, the patient understands he is very high risk for severe complications including amputation of the hand, persistent stiffness, persistent paresthesias, need for additional surgeries and he elected to proceed. DESCRIPTION OF PROCEDURE The patient was identified in the preoperative holding area. The patient was taken to the operating room on an emergent basis. The prior VACs were removed. Upon removing the VAC, there was noted to still be significant tightness of the forearm with incomplete release of the forearm fascia, specifically the deep compartment. The patient did have a palpable radial pulse. Right upper extremity was prepped and draped in normal sterile fashion. Attention was first turned to the right hand. Tourniquet was inflated for 13 minutes to perform a right carpal tunnel release. There was a very significant compression and swelling on the median nerve which was decompressed with care taken to protect the palmar arch, ulnar nerve, ulnar artery and median nerve. The prior incision by Dr. Briones had stopped at the level of the wrist crease and again this was extended to perform a carpal tunnel release. Then hand fasciotomies were performed by making incisions dorsally over the second and fourth metacarpals as well as the thenar eminence. There was significant edematous fluid in this area and dusky musculature with significant improvement after release of all 10 compartments of the hand. Tourniquet was released at this point. Attention was then turned to the forearm. The majority of the superficial muscle did appear to have healthy contractile tissue. There was very significant bulging of the muscle through the forearm fasciotomies. These were extended slightly proximally and distally. Care was taken to release the deep compartments both dorsally and volarly as there was significant compression and dusky musculature dorsally over the extensor pollicis longus, extensor indices proprius as well as volarly over the deep flexor compartment including the FDP. Following this release, there was significant improvement in the color and contractility of the musculature. The most involved areas again appeared to be the deep flexors as well as the EPL and EIP. Care was taken to decompress the ulnar nerve as well as the radial artery and ulnar artery. Throughout this procedure, the patient maintained palpable radial and ulnar pulses. There was significant improvement in the softness of the forearm as well as again the color and contractility of the musculature. Following this, a Doppler was used and there was dopplerable flow through the palmar arch as well as digital arteries. A VAC dressing was placed over all of the open wounds which held good suction after thorough irrigation debridement. The patient was placed into a bulky dressing, awaken from anesthesia without any complications. He will elevate the hand. He will begin gentle range of motion of the fingers but no significant range of motion of the wrist. I will speak with Dr. Briones of vascular surgery and likely he will continue the VAC changes, possible closure, and I will continue to follow the patient. The patient will likely need many multiple VAC changes, possible skin graft of the upper extremity. He may have long-term stiffness in the hand. We will continue to follow him closely. MD STACY Michael/ /10:23 PM /10:46 PM MTDLaurent
[2016-11-25] VITALS (7 sets, daily range): BP systolic 112–127; BP diastolic 63–79; PULSE 68–96; RESP 11–19; TEMP 97.3–98.5; O2SAT 95–98
[2016-11-25] MEDS: ACETAMINOPHEN/HYDROcodone 325 MG/10 MG TAB PO PRN ×4 (02:39→19:39)
[2016-11-25] MEDS: HYDROmorphone HCL PF 1 MG/ML VIAL IV PUSH PRN ×9 (02:53→21:31)
[2016-11-25 05:25] LABS: AUTOMATED NEUTROPHIL # 10.8 TH/MM3 (1.8-7.7); BASOPHIL % 0.1 % (0.0-2.0); HEMATOCRIT 40.1 % (39.0-51.0); HEMO FLAGS DIFF FINAL; LYMPH % 10.1 % (9.0-44.0); LYMPHOCYTE # 1.4 TH/MM3 (1.0-4.8); MEAN CELL VOLUME 81.3 FL (80.0-100.0); MEAN CORPUSCULAR HEMOGLOBIN 27.5 PG (27.0-34.0); MEAN CORPUSCULAR HGB CONC 33.9 % (32.0-36.0); MONO % 9.8 % (0.0-8.0); PLATELET COUNT 346 TH/MM3 (150-450); RED BLOOD COUNT 4.93 MIL/MM3 (4.50-5.90); WHITE BLOOD COUNT 13.4 TH/MM3 (4.0-11.0)
[2016-11-25 05:44] LABS: ANION GAP 8 MEQ/L (5-15); AST (GOT) 445 U/L (15-37); BICARBONATE 23.8 MEQ/L (21.0-32.0); BLOOD UREA NITROGEN 6 MG/DL (7-18); CHLORIDE 100 MEQ/L (98-107); GLOMERULAR FILTRATION RATE 123 ML/MIN (>89); POTASSIUM 4.6 MEQ/L (3.5-5.1); SODIUM (NA) 132 MEQ/L (136-145)
[2016-11-25 05:45] LABS: ALT (GPT) 103 U/L (12-78)
[2016-11-25 05:47] LABS: ALKALINE PHOSPHATASE 95 U/L (45-117); TOTAL BILIRUBIN ADULT 0.7 MG/DL (0.2-1.0)
[2016-11-25] MEDS: SODIUM CHLOR 0.9% 1000 ML INJ 1,000 ML IV SCH ×2 (06:38→09:30)
--- NOTE | 2016-11-25 07:36 | HHI.PR ---
Subjective Remarks Patient seen and examined this morning. His vitals are stable he's afebrile. Ate breakfast this am, tolerated it without any issues. Reports pain 09/21. States he is due for his pain medication. Has not passed flatus or had a BM. Reports pressure of the arm. Objective Vital Signs Date Time Temp Pulse Resp B/P (MAP) Pulse Ox O2 Delivery O2 Flow Rate FiO2 11/25/16 04:00 80 11/25/16 04:00 98.3 76 11 114/72 (86) 95 11/25/16 00:00 97.3 86 11 127/77 (94) 96 11/25/16 00:00 86 11/24/16 21:45 93 15 123/70 (87) 96 Room Air 11/24/16 21:30 96 14 126/76 (93) 95 Room Air 11/24/16 21:18 98 14 132/75 (94) 96 Room Air 11/24/16 21:17 98.1 98 14 123/81 (95) 97 Room Air 11/24/16 16:00 98.3 65 16 143/101 (115) 97 11/24/16 16:00 65 11/24/16 15:15 17 11/24/16 12:00 98.5 70 13 162/101 (121) 97 11/24/16 12:00 67 11/24/16 10:26 97 21 11/24/16 09:50 15 11/24/16 08:00 99 Room Air 11/24/16 08:00 62 11/24/16 08:00 97.9 87 18 163/104 (123) 97 I/O 11/24/16 11/24/16 11/24/16 11/25/16 11/25/16 11/25/16 07:00 15:00 23:00 07:00 15:00 23:00 Intake Total 2860 ml 5060 ml 1348 ml Output Total 755 ml 250 ml 1800 ml 725 ml Balance 2105 ml -250 ml 3260 ml 623 ml Intake Oral 60 ml 480 ml 360 ml IV Total 1800 ml 2880 ml 988 ml Other 1000 ml 1700 ml Output Urine Total 750 ml 250 ml 1200 ml 325 ml Drainage Total 500 ml 400 ml Estimated Blood Loss 5 ml 100 ml # Voids 1 1 # Bowel Movements 0 0 Result Diagram: 11/25/16 0442 11/25/16 0442 Imaging Last Impressions Upper Extremity CTA 11/24/16 0000 Signed Impressions: Service Date/Time: Thursday, November 24, 2016 01:01 - CONCLUSION: 1. Occlusion of the ulnar artery approximately 5 cm distal to its origin and occlusion of the proximal radial artery associated with forearm soft tissue swelling. Findings could be related to an early compartment syndrome. Jayesh Farris MD Radius/Ulna X-Ray 11/24/16 0000 Signed Impressions: Service Date/Time: Thursday, November 24, 2016 01:30 - CONCLUSION: 1. Soft tissue swelling of the forearm. No radiopaque foreign body or acute bony abnormality. Jayesh Farris MD Hand X-Ray 11/24/16 0000 Signed Impressions: Service Date/Time: Thursday, November 24, 2016 01:30 - CONCLUSION: 1. No acute findings. No radiopaque foreign body identified. Jayesh Farris MD Objective Remarks GENERAL: well appearing, nad SKIN: Warm and dry. Multiple tattoos. HEAD: Normocephalic. EYES: No scleral icterus. No injection or drainage. NECK: Supple, trachea midline. CARDIOVASCULAR: Regular rate and rhythm without murmurs, gallops, or rubs. RESPIRATORY: Breath sounds equal bilaterally. No accessory muscle use. GASTROINTESTINAL: Abdomen soft, non-tender, nondistended. MUSCULOSKELETAL: Right upper extremity in sling, hanging to gravity. Wound vac in place, actively draining. LE: no calf tenderness A/P Problem List: (1) Hepatitis C ICD Code: B19.20 - Unspecified viral hepatitis C without hepatic coma (2) Compartment syndrome of right upper extremity ICD Code: T79.A11A - Traumatic compartment syndrome of right upper extremity, initial encounter Status: Acute Assessment and Plan 31-year-old male with Compartment syndrome or right upper extremity S/P right hand fasciotomy, carpal tunnel release, deep dorsal forearm fasciotomy, deep volar forearm arm fasciotomy, placement VAC dressing over right arm by Dr. Edward on 11/24/16. Management by vascular surgery Adjust pain management accordingly--per surgery Hypokalemia Repleated IVDU Tox screen +opiates, +benzos, +cocaine, +cannab Counseled by multiple physicians Hepatitis C+ GI consulted DVT prophylaxis: Bilateral SCDs Transfer to [facility] Discharge Planning D/C pending surgical clearance, likely several days. GI eval pending. Problem Qualifiers (1) Compartment syndrome of right upper extremity: Qualified Codes: T79.A11A - Traumatic compartment syndrome of right upper extremity, initial encounter Mary Ji MD Nov 25, 2016 07:36
[2016-11-25] MEDS: SODIUM CHLORIDE 0.9% FLUSH 10 ML FLUSH IV FLUSH SCH ×2 (09:00→21:31)
--- NOTE | 2016-11-25 11:22 | PD.CAR.PN ---
CVT Progress Note Subjective/Hospital Course: 11/24/16 Patient is status post the fasciotomy of the right arm with retrieval of excellent proximal and distal pulses Wound VAC in place draining serous and serosanguineous fluid Patient can move available with ease has partial sensation in the hand and has excellent strong palpable and dopplerable brachial pulse and Doppler brisk radial and ulnar pulse Due to hand swelling capillary refill in fingers is still decreased but hand is warm While the swelling of the arm has decreased somewhat it'll take a long time before the arm can be closed either by a skin graft or acellular matrix followed by skin graft Hand this no more swollen than yesterday and I have called Dr. Edward the hand surgeon for patient will probably need fasciotomy of the hand which is in the domain of the in contracting support specialist 11/25/16 Patient is doing well at this time Excellent capillary refill of the distal fingers Patient is now status post fasciotomy of the right arm and subsequent fasciotomy of the right hand. Patient will transfer to the floor this point Eventually he will need grafting or a cell placement to the volar surface fasciotomy, while the dorsal surface fasciotomy will possibly close in the OR in the future Objective: Vital Signs Date Time Temp Pulse Resp B/P (MAP) Pulse Ox O2 Delivery O2 Flow Rate FiO2 11/25/16 09:45 17 11/25/16 08:22 22 11/25/16 08:00 98.5 68 16 112/69 (83) 97 11/25/16 08:00 72 11/25/16 07:00 99 Room Air 11/25/16 04:00 80 11/25/16 04:00 98.3 76 11 114/72 (86) 95 11/25/16 00:00 97.3 86 11 127/77 (94) 96 11/25/16 00:00 86 11/24/16 21:45 93 15 123/70 (87) 96 Room Air 11/24/16 21:30 96 14 126/76 (93) 95 Room Air 11/24/16 21:18 98 14 132/75 (94) 96 Room Air 11/24/16 21:17 98.1 98 14 123/81 (95) 97 Room Air 11/24/16 16:00 98.3 65 16 143/101 (115) 97 11/24/16 16:00 65 11/24/16 12:00 98.5 70 13 162/101 (121) 97 11/24/16 12:00 67 Labs: Laboratory Tests Test 11/25/16 04:42 White Blood Count 13.4 TH/MM3 (4.0-11.0) Red Blood Count 4.93 MIL/MM3 (4.50-5.90) Hemoglobin 13.6 GM/DL (13.0-17.0) Hematocrit 40.1 % (39.0-51.0) Mean Corpuscular Volume 81.3 FL (80.0-100.0) Mean Corpuscular Hemoglobin 27.5 PG (27.0-34.0) Mean Corpuscular Hemoglobin Concent 33.9 % (32.0-36.0) Red Cell Distribution Width 18.0 % (11.6-17.2) Platelet Count 346 TH/MM3 (150-450) Mean Platelet Volume 8.3 FL (7.0-11.0) Neutrophils (%) (Auto) 80.0 % (16.0-70.0) Lymphocytes (%) (Auto) 10.1 % (9.0-44.0) Monocytes (%) (Auto) 9.8 % (0.0-8.0) Eosinophils (%) (Auto) 0.0 % (0.0-4.0) Basophils (%) (Auto) 0.1 % (0.0-2.0) Neutrophils # (Auto) 10.8 TH/MM3 (1.8-7.7) Lymphocytes # (Auto) 1.4 TH/MM3 (1.0-4.8) Monocytes # (Auto) 1.3 TH/MM3 (0-0.9) Eosinophils # (Auto) 0.0 TH/MM3 (0-0.4) Basophils # (Auto) 0.0 TH/MM3 (0-0.2) CBC Comment DIFF FINAL Differential Comment Blood Urea Nitrogen 6 MG/DL (7-18) Creatinine 0.74 MG/DL (0.60-1.30) Random Glucose 133 MG/DL (74-106) Total Protein 6.8 GM/DL (6.4-8.2) Albumin 2.3 GM/DL (3.4-5.0) Calcium Level 8.2 MG/DL (8.5-10.1) Alkaline Phosphatase 95 U/L (45-117) Aspartate Amino Transf (AST/SGOT) 445 U/L (15-37) Alanine Aminotransferase (ALT/SGPT) 103 U/L (12-78) Total Bilirubin 0.7 MG/DL (0.2-1.0) Sodium Level 132 MEQ/L (136-145) Potassium Level 4.6 MEQ/L (3.5-5.1) Chloride Level 100 MEQ/L (98-107) Carbon Dioxide Level 23.8 MEQ/L (21.0-32.0) Anion Gap 8 MEQ/L (5-15) Estimat Glomerular Filtration Rate 123 ML/MIN (>89) Result Diagram: 11/25/16 0442 11/25/16 0442 Michell Briones MD Nov 25, 2016 11:22
[2016-11-25] MEDS ORDERED: NALOXONE HCL 0.4 MG/ML AMP IV PUSH PRN ×2 (15:15→16:45)
--- NOTE | 2016-11-25 15:58 | PD.CONS ---
HPI History of Present Illness This is a 31 year old male with a history of polysubstance abuse, who is currently hospitalized for compartment syndrome of the right upper extremity after he injected Joe into his right antecubital space late night/ early Sunday morning. He required fasciotomy of the right arm with placement of wound VAC x 2 on 11/24/[address] Briones. He was noted to have elevated liver enzymes with T. Bili 0.7, AST 445, ALT 103, Akl PHosph 95. He was also noted to have antibodies for hepatitis C. GI was consulted for further evaluation. He had a friend at the bedside, but stated that she could be present during the interview. He has never been told that he has hepatitis C in the past. He does report that he uses multiple pain meds such as dilaudid and tested positive for opiates, benzodiazepines, cocaine, and cannabinoids. He does use IV drugs and reports that he has shared needles in the past. He denies any known liver disease in himself or other family members. He denies any nausea, vomiting, abdominal pain, jaundice, diarrhea, constipation, melena, or hematochezia. (Yara Ramesh) PFSH Past Medical History Polysubstance abuse Past Surgical History None (Yara Ramesh) Coded Allergies: No Known Allergies (Verified , 11/24/16) Medications Allergies Coded Allergies Type Severity Reaction Last Updated Verified No Known Allergies 11/24/16 Yes Active Scripts Medications Dose Route/Sig Max Daily Dose Days Date Category No Active Prescriptions or Reported Medications Rx Family History Denies any family history of liver disease. Social History PSA with marijuana, cocaine, ecstasy, dilaudid, joe Occasional ETOH use No tobacco use. (Yara Ramesh) Review of Systems Constitutional: DENIES: Fatigue, Fever, Chills Respiratory: DENIES: Cough Cardiovascular: DENIES: Chest pain Gastrointestinal: DENIES: Abdominal pain, Black stools, Bloody stools, Constipation, Diarrhea, Nausea, Vomiting, Anorexia, Swelling of Abdomen, Hematemesis Musculoskeletal: COMPLAINS OF: Joint pain, Muscle aches, Stiffness, Joint Swelling Hematologic/lymphatic: DENIES: Bruising Neurologic: DENIES: Headache Psychiatric: DENIES: Confusion (Ramesh,Yara Dorinda PARALEGAL SPECIALIST) GI Exam Vitals I&O Vital Signs Date Time Temp Pulse Resp B/P (MAP) Pulse Ox O2 Delivery O2 Flow Rate FiO2 11/25/16 12:00 97.4 78 19 121/79 (93) 97 11/25/16 12:00 86 11/25/16 09:45 17 11/25/16 08:22 22 11/25/16 08:00 98.5 68 16 112/69 (83) 97 11/25/16 08:00 72 11/25/16 07:00 99 Room Air 11/25/16 04:00 80 11/25/16 04:00 98.3 76 11 114/72 (86) 95 11/25/16 00:00 97.3 86 11 127/77 (94) 96 11/25/16 00:00 86 11/24/16 21:45 93 15 123/70 (87) 96 Room Air 11/24/16 21:30 96 14 126/76 (93) 95 Room Air 11/24/16 21:18 98 14 132/75 (94) 96 Room Air 11/24/16 21:17 98.1 98 14 123/81 (95) 97 Room Air 11/24/16 16:00 98.3 65 16 143/101 (115) 97 11/24/16 16:00 65 I/O 11/24/16 11/24/16 11/24/16 11/25/16 11/25/16 11/25/16 07:00 15:00 23:00 07:00 15:00 23:00 Intake Total 2860 ml 5060 ml 1348 ml 480 ml Output Total 755 ml 250 ml 1800 ml 725 ml Balance 2105 ml -250 ml 3260 ml 623 ml 480 ml Intake Oral 60 ml 480 ml 360 ml IV Total 1800 ml 2880 ml 988 ml 480 ml Other 1000 ml 1700 ml Output Urine Total 750 ml 250 ml 1200 ml 325 ml Drainage Total 500 ml 400 ml Estimated Blood Loss 5 ml 100 ml # Voids 1 1 # Bowel Movements 0 0 Imaging Last Impressions Upper Extremity CTA 11/24/16 0000 Signed Impressions: Service Date/Time: Thursday, November 24, 2016 01:01 - CONCLUSION: 1. Occlusion of the ulnar artery approximately 5 cm distal to its origin and occlusion of the proximal radial artery associated with forearm soft tissue swelling. Findings could be related to an early compartment syndrome. Jayesh Farris MD Radius/Ulna X-Ray 11/24/16 0000 Signed Impressions: Service Date/Time: Thursday, November 24, 2016 01:30 - CONCLUSION: 1. Soft tissue swelling of the forearm. No radiopaque foreign body or acute bony abnormality. Jayesh Farris MD Hand X-Ray 11/24/16 0000 Signed Impressions: Service Date/Time: Thursday, November 24, 2016 01:30 - CONCLUSION: 1. No acute findings. No radiopaque foreign body identified. Jayesh Farris MD Laboratory Test 11/25/16 04:42 White Blood Count 13.4 TH/MM3 Red Blood Count 4.93 MIL/MM3 Hemoglobin 13.6 GM/DL Hematocrit 40.1 % Mean Corpuscular Volume 81.3 FL Mean Corpuscular Hemoglobin 27.5 PG Mean Corpuscular Hemoglobin Concent 33.9 % Red Cell Distribution Width 18.0 % Platelet Count 346 TH/MM3 Mean Platelet Volume 8.3 FL Neutrophils (%) (Auto) 80.0 % Lymphocytes (%) (Auto) 10.1 % Monocytes (%) (Auto) 9.8 % Eosinophils (%) (Auto) 0.0 % Basophils (%) (Auto) 0.1 % Neutrophils # (Auto) 10.8 TH/MM3 Lymphocytes # (Auto) 1.4 TH/MM3 Monocytes # (Auto) 1.3 TH/MM3 Eosinophils # (Auto) 0.0 TH/MM3 Basophils # (Auto) 0.0 TH/MM3 CBC Comment DIFF FINAL Differential Comment Blood Urea Nitrogen 6 MG/DL Creatinine 0.74 MG/DL Random Glucose 133 MG/DL Total Protein 6.8 GM/DL Albumin 2.3 GM/DL Calcium Level 8.2 MG/DL Alkaline Phosphatase 95 U/L Aspartate Amino Transf (AST/SGOT) 445 U/L Alanine Aminotransferase (ALT/SGPT) 103 U/L Total Bilirubin 0.7 MG/DL Sodium Level 132 MEQ/L Potassium Level 4.6 MEQ/L Chloride Level 100 MEQ/L Carbon Dioxide Level 23.8 MEQ/L Anion Gap 8 MEQ/L Estimat Glomerular Filtration Rate 123 ML/MIN Physical Examination HEENT: Normocephalic; atraumatic; no jaundice. CHEST: CTA CARDIAC: RRR ABDOMEN: Soft, nondistended, nontender; no hepatosplenomegaly; bowel sounds are present in all four quadrants. EXTREMITIES: Right upper extremity edematous, in colle sling, drsg d/i, wound vac x 2. pt states he cannot move fingers. TABLE ASSEMBLER: No focal deficits; alert and oriented times three. (Yara Ramesh) Assessment and Plan Plan ASSESSMENT: - Elevated LFTs. T. Bili 0.7, AST 445, ALT 103, Alk Phosph 95. No prior known hx of liver disease. Toxicology screen (+) for opiates, benzodiazepines, cocaine, cannabinoids. He reports that he injected Joe late night and almost immediately had severe pain and swelling of RUE. No n/v, abdominal pain. HCV Ab (+). Denies any known hx of this. Likely, his LFT derangement is related to polysubstance abuse, muscle injury, perhaps on possible underlying HCV infection. Will get RUQ US, HCV genotype/viral load - Hepatitis C Antibodies. Get genotype/viral load - Compartment syndrome RUE. Pt developed severe pain/swelling after injecting Joe into right ac. CTA RUE(11/24/16)---> occlusion of the ulnar artery approximately 5 cm distal to its origin and occlusion of the proximal radial artery associated with fforearm soft tissue swelling. Findings could be related to an early compartment syndrome. - PSA. Needs complete cessation. PLAN: - LYNNE - RUQ US - HCV Genotype and Viral load - Monitor LFTs - Avoid hepatotoxins - Supportive care - Further recommendations to follow based on results of above - Pt seen and examined by Dr. Valverde and myself and this note is written on his behalf (Yara Ramesh) Physician Comments Seen and examined with YUSUF, liver ramos ordered. (Marin Valverde MD) Yara Ramesh Nov 25, 2016 15:58 Marin Valverde MD Nov 25, 2016 16:20
[2016-11-25] MEDS ORDERED: HYDROMORPHONE IV SCH (16:00)
[2016-11-25] MEDS ORDERED: SODIUM CHLORIDE 0.9% IV SCH (16:00)
[2016-11-25] MEDS: HYDROmorphone HCL PCA 6 MG/30 ML IV SCH ×2 (18:44→21:57)
[2016-11-25] MEDS: ENOXAPARIN SODIUM 40 MG/0.4 ML SYRINGE SQ SCH (21:30)
[2016-11-25] MEDS: PCA - TOTAL MG DILAUDID DELIVERED PER SHIFT SCH (21:32)
[2016-11-25] MEDS ORDERED: PCA - TOTAL MG DILAUDID DELIVERED PER SHIFT SCH (22:00)
--- NOTE | 2016-11-25 22:26 | PD.ORT.PN ---
Subjective Subjective Remarks Patient reports pain right arm and paresthesias right hand worse in median nerve distribution, also in ulnar nerve distribution. Has been compliant with arm elevation Objective Vitals Vital Signs Date Time Temp Pulse Resp B/P (MAP) Pulse Ox O2 Delivery O2 Flow Rate FiO2 11/25/16 21:57 18 11/25/16 21:32 18 11/25/16 20:43 98.5 96 18 113/63 (80) 95 11/25/16 20:39 18 11/25/16 18:44 17 11/25/16 18:07 98.5 91 16 114/71 (85) 96 11/25/16 16:00 98.2 80 16 122/79 (93) 98 11/25/16 12:00 97.4 78 19 121/79 (93) 97 11/25/16 12:00 86 11/25/16 09:45 17 11/25/16 08:22 22 11/25/16 08:00 98.5 68 16 112/69 (83) 97 11/25/16 08:00 72 11/25/16 07:00 99 Room Air 11/25/16 04:00 80 11/25/16 04:00 98.3 76 11 114/72 (86) 95 11/25/16 00:00 97.3 86 11 127/77 (94) 96 11/25/16 00:00 86 I/O 11/24/16 11/24/16 11/24/16 11/25/16 11/25/16 11/25/16 07:00 15:00 23:00 07:00 15:00 23:00 Intake Total 2860 ml 5060 ml 1348 ml 480 ml 1000 ml Output Total 755 ml 250 ml 1800 ml 725 ml 400 ml Balance 2105 ml -250 ml 3260 ml 623 ml 480 ml 600 ml Intake Oral 60 ml 480 ml 360 ml 1000 ml IV Total 1800 ml 2880 ml 988 ml 480 ml Other 1000 ml 1700 ml Output Urine Total 750 ml 250 ml 1200 ml 325 ml 400 ml Drainage Total 500 ml 400 ml Estimated Blood Loss 5 ml 100 ml # Voids 1 1 # Bowel Movements 0 0 0 Result Diagram: 11/25/16 0442 11/25/16 0442 Imaging Last 24 hours Impressions Upper Extremity CTA 11/24/16 0000 Signed Impressions: Service Date/Time: Nabeel, November 24, 2016 01:01 - CONCLUSION: 1. Occlusion of the ulnar artery approximately 5 cm distal to its origin and occlusion of the proximal radial artery associated with forearm soft tissue swelling. Findings could be related to an early compartment syndrome. Jayesh Farris MD Radius/Ulna X-Ray 11/24/16 0000 Signed Impressions: Service Date/Time: Thursday, November 24, 2016 01:30 - CONCLUSION: 1. Soft tissue swelling of the forearm. No radiopaque foreign body or acute bony abnormality. Jayesh Farris MD Hand X-Ray 11/24/16 0000 Signed Impressions: Service Date/Time: Thursday, November 24, 2016 01:30 - CONCLUSION: 1. No acute findings. No radiopaque foreign body identified. Jayesh Farris MD Objective Remarks Bulky dressing in place, VACs holding suction, 3 sec capillary refill to all fingers, decreased sensation median and ulnar nerve distribution. trace flexion all fingers except thumb. able to fire fpl. improved edema to hand Assessment & Plan Assessment and Plan 31yM s/p forearm fasciotomies & VAC Dr Hardwick of vascular surgery, POD1 s/p dorsal and volar deep forearm fasciotomies, carpal tunnel release, hand fasciotomies, VAC placement -Elevate right hand, OT for gentle ROM of fingers, no ROM wrist -will continue to follow, reviewed ROM with patient, patient understands he will have long recovery and may never regain full ROM of hand, may require additional surgeries including tendon transfers -VAC changes and closure per Dr Hardwick of vascular surgery Kayla Edward MD Nov 25, 2016 22:26
[2016-11-26] VITALS (7 sets, daily range): BP systolic 115–125; BP diastolic 59–71; PULSE 80–98; RESP 16–18; TEMP 96–99; O2SAT 95–96
[2016-11-26] MEDS: HYDROmorphone HCL PCA 6 MG/30 ML IV SCH ×7 (01:46→21:33)
[2016-11-26] MEDS: PCA - TOTAL MG DILAUDID DELIVERED PER SHIFT SCH ×3 (05:52→21:35)
[2016-11-26] MEDS: HYDROmorphone HCL PF 1 MG/ML VIAL IV PUSH PRN ×3 (06:14→12:22)
[2016-11-26 07:13] LABS: AUTOMATED NEUTROPHIL # 6.3 TH/MM3 (1.8-7.7); BASOPHIL % 0.3 % (0.0-2.0); EOSINOPHIL # 0.1 TH/MM3 (0-0.4); EOSINOPHIL % 0.6 % (0.0-4.0); HEMATOCRIT 37.3 % (39.0-51.0); HEMO FLAGS DIFF FINAL; LYMPH % 26.3 % (9.0-44.0); LYMPHOCYTE # 2.7 TH/MM3 (1.0-4.8); MEAN CELL VOLUME 81.4 FL (80.0-100.0); MEAN CORPUSCULAR HEMOGLOBIN 27.1 PG (27.0-34.0); MEAN CORPUSCULAR HGB CONC 33.3 % (32.0-36.0); MONO % 11.8 % (0.0-8.0); PLATELET COUNT 314 TH/MM3 (150-450); RED BLOOD COUNT 4.58 MIL/MM3 (4.50-5.90); RED CELL DISTRIBUTION WIDTH 18.1 % (11.6-17.2); WHITE BLOOD COUNT 10.4 TH/MM3 (4.0-11.0)
[2016-11-26 07:37] LABS: BICARBONATE 28.6 MEQ/L (21.0-32.0); POTASSIUM 4.2 MEQ/L (3.5-5.1)
[2016-11-26 07:39] LABS: INDIRECT BILIRUBIN 0.4 MG/DL (0.0-0.8); TOTAL BILIRUBIN ADULT 0.5 MG/DL (0.2-1.0)
--- NOTE | 2016-11-26 07:49 | HHI.PR ---
Subjective Remarks Patient seen and examined this morning. His vitals are stable he's afebrile. No complaints, pain well controlled. Passing flatus, no BM. Objective Vital Signs Date Time Temp Pulse Resp B/P (MAP) Pulse Ox O2 Delivery O2 Flow Rate FiO2 11/26/16 07:40 16 11/26/16 06:49 19 11/26/16 05:52 18 11/26/16 05:30 99.0 94 18 125/71 (89) 96 11/26/16 04:47 18 11/26/16 01:46 18 11/26/16 00:27 98.3 98 18 118/70 (86) 95 11/25/16 21:57 18 11/25/16 21:32 18 11/25/16 20:43 98.5 96 18 113/63 (80) 95 11/25/16 20:39 18 11/25/16 18:44 17 11/25/16 18:07 98.5 91 16 114/71 (85) 96 11/25/16 16:00 98.2 80 16 122/79 (93) 98 11/25/16 12:00 97.4 78 19 121/79 (93) 97 11/25/16 12:00 86 11/25/16 08:22 22 11/25/16 08:00 98.5 68 16 112/69 (83) 97 11/25/16 08:00 72 I/O 11/25/16 11/25/16 11/25/16 11/26/16 11/26/16 11/26/16 07:00 15:00 23:00 07:00 15:00 23:00 Intake Total 1348 ml 480 ml 1000 ml 840 ml Output Total 725 ml 1300 ml 450 ml Balance 623 ml 480 ml -300 ml 390 ml Intake Oral 360 ml 1000 ml IV Total 988 ml 480 ml 840 ml Output Urine Total 325 ml 400 ml Drainage Total 400 ml 900 ml 450 ml # Voids 2 # Bowel Movements 0 0 Result Diagram: 11/26/16 0648 11/26/16 0648 Imaging Last Impressions Upper Extremity CTA 11/24/16 0000 Signed Impressions: Service Date/Time: Thursday, November 24, 2016 01:01 - CONCLUSION: 1. Occlusion of the ulnar artery approximately 5 cm distal to its origin and occlusion of the proximal radial artery associated with forearm soft tissue swelling. Findings could be related to an early compartment syndrome. Jayesh Farris MD Radius/Ulna X-Ray 11/24/16 0000 Signed Impressions: Service Date/Time: Thursday, November 24, 2016 01:30 - CONCLUSION: 1. Soft tissue swelling of the forearm. No radiopaque foreign body or acute bony abnormality. Jayesh Farris MD Hand X-Ray 11/24/16 0000 Signed Impressions: Service Date/Time: Thursday, November 24, 2016 01:30 - CONCLUSION: 1. No acute findings. No radiopaque foreign body identified. Jayesh Farris MD Objective Remarks GENERAL: well appearing, nad SKIN: Warm and dry. Multiple tattoos. HEAD: Normocephalic. EYES: No scleral icterus. No injection or drainage. NECK: Supple, trachea midline. CARDIOVASCULAR: Regular rate and rhythm without murmurs, gallops, or rubs. RESPIRATORY: Breath sounds equal bilaterally. No accessory muscle use. GASTROINTESTINAL: Abdomen soft, non-tender, nondistended. MUSCULOSKELETAL: Right upper extremity in sling, hanging to gravity. Wound vac in place, actively draining. LE: no calf tenderness A/P Problem List: (1) Hepatitis C ICD Code: B19.20 - Unspecified viral hepatitis C without hepatic coma (2) Compartment syndrome of right upper extremity ICD Code: T79.A11A - Traumatic compartment syndrome of right upper extremity, initial encounter Status: Acute Assessment and Plan 31-year-old male with Compartment syndrome or right upper extremity S/P right hand fasciotomy, carpal tunnel release, deep dorsal forearm fasciotomy, deep volar forearm arm fasciotomy, placement VAC dressing over right arm by Dr. Edward on 11/24/16. Management by vascular surgery & hand surgery, may require further surgical intervention TIRE TESTER pump -controlled pain, pericolace BID Hypokalemia Repleated IVDU Tox screen +opiates, +benzos, +cocaine, +cannab Counseled by multiple physicians Hepatitis C+ GI consulted:HCV genotype and viral load, RUQ US performed, report pending DVT prophylaxis: Bilateral SCDs Discharge Planning D/C pending surgical clearance, likely several days. Problem Qualifiers (1) Compartment syndrome of right upper extremity: Qualified Codes: T79.A11A - Traumatic compartment syndrome of right upper extremity, initial encounter Mary Ji MD Nov 26, 2016 07:49
[2016-11-26] MEDS: SODIUM CHLORIDE 0.9% FLUSH 10 ML FLUSH IV FLUSH SCH ×2 (09:16→21:35)
[2016-11-26] MEDS: ACETAMINOPHEN/HYDROcodone 325 MG/10 MG TAB PO PRN ×2 (10:24→15:21)
--- NOTE | 2016-11-26 12:29 | RADRPT ---
EXAM DATE/TIME: 11/26/2016 10:04 [facility] COMPARISON: No previous studies available for comparison. INDICATIONS : Increased lab values. MEDICAL HISTORY : Irregular heartbeat. Asthma. Kidney stones. Muscle pain. Substance use. Tobacco use. SURGICAL HISTORY : None. ENCOUNTER: Initial ACUITY: 1 day PAIN SCORE: 0/10 LOCATION: Bilateral upper quadrant MEASUREMENTS: LIVER: 16.6 cm length COMMON DUCT: 1 mm RIGHT KIDNEY: 10.4 x 4.8 x 4.4 cm SPLEEN: 14.3 cm length FINDINGS: LIVER: Liver is within normal limits for size and echogenicity. No dilated biliary ducts. The portal system is patent. There is a 1.4 cm hyperechoic mass in the right lobe. No evidence of ascites. COMMON DUCT: No intraluminal mass or stone visualized. GALLBLADDER: Contains no stones, demonstrates no wall thickening or pericholecystic fluid. PANCREAS: The visualized portions are within normal limits. RIGHT KIDNEY: No hydronephrosis, stone or mass. SPLEEN: No focal lesion. CONCLUSION: 1. There is a single 1.4 cm hyperechoic mass in the right lobe suggestive of a hemangioma. 2. No evidence of gallstones or biliary tract obstruction. Humble Mendez MD on November 26, 2016 at 12:26 Board Certified Radiologist. This report was verified electronically.
[2016-11-26] MEDS: HYDROmorphone HCL PF 2 MG/ML VIAL IV PUSH PRN ×3 (15:41→23:53)
--- NOTE | 2016-11-26 19:46 | PD.ORT.PN ---
Subjective Subjective Remarks Called by nurse for decreased capillary refill to right thumb and middle finger. Otherwise no change in paresthesias. Decreased edema to right hand Objective Vitals Vital Signs Date Time Temp Pulse Resp B/P (MAP) Pulse Ox O2 Delivery O2 Flow Rate FiO2 11/26/16 15:41 16 11/26/16 14:00 16 11/26/16 13:30 98.4 85 16 116/61 (79) 96 11/26/16 11:15 99.0 86 17 117/59 (78) 95 11/26/16 10:26 18 11/26/16 08:06 98.4 80 16 115/66 (82) 95 11/26/16 05:52 18 11/26/16 05:30 99.0 94 18 125/71 (89) 96 11/26/16 04:47 18 11/26/16 01:46 18 11/26/16 00:27 98.3 98 18 118/70 (86) 95 11/25/16 21:57 18 11/25/16 21:32 18 11/25/16 20:43 98.5 96 18 113/63 (80) 95 11/25/16 20:39 18 I/O 11/25/16 11/25/16 11/25/16 11/26/16 11/26/16 11/26/16 07:00 15:00 23:00 07:00 15:00 23:00 Intake Total 1348 ml 480 ml 1000 ml 840 ml Output Total 725 ml 1300 ml 450 ml Balance 623 ml 480 ml -300 ml 390 ml Intake Oral 360 ml 1000 ml IV Total 988 ml 480 ml 840 ml Output Urine Total 325 ml 400 ml Drainage Total 400 ml 900 ml 450 ml # Voids 2 # Bowel Movements 0 0 Result Diagram: 11/26/16 0648 11/26/16 0648 Imaging Last 24 hours Impressions Upper Extremity CTA 11/24/16 0000 Signed Impressions: Service Date/Time: Thursday, November 24, 2016 01:01 - CONCLUSION: 1. Occlusion of the ulnar artery approximately 5 cm distal to its origin and occlusion of the proximal radial artery associated with forearm soft tissue swelling. Findings could be related to an early compartment syndrome. Jayesh Farris MD Radius/Ulna X-Ray 11/24/16 0000 Signed Impressions: Service Date/Time: Thursday, November 24, 2016 01:30 - CONCLUSION: 1. Soft tissue swelling of the forearm. No radiopaque foreign body or acute bony abnormality. Jayesh Farris MD Hand X-Ray 11/24/16 0000 Signed Impressions: Service Date/Time: Thursday, November 24, 2016 01:30 - CONCLUSION: 1. No acute findings. No radiopaque foreign body identified. Jayesh Farris MD Objective Remarks Dressing removed, VAC holding suction, palpable radial pulse right, bluish coloration tip of right thumb and middle finger, strong dopplerable signal at MP crease to all fingers including thumb, index, middle, ring, and small finger , decreased sensation median and ulnar distribution Assessment & Plan Assessment and Plan 31yM s/p forearm fasciotomies & VAC Dr Hardwick of vascular surgery, POD2 s/p dorsal and volar deep forearm fasciotomies, carpal tunnel release, hand fasciotomies, VAC placement -bluish discoloration right thumb and middle finger but strong dopplerable signal base of all fingers, discussed case with Dr Hardwick. I recommend warming blanket to right hand and no caffeine or chocolate. Medication or additional vascular management or studies per Dr Hardwick. Patient may lose tips of fingers if necrosis continues. -VAC changes and closure per Dr Hardwick of vascular surgery -will continue to follow Kayla Edward MD Nov 26, 2016 19:45
[2016-11-26] MEDS: DOCUSATE SODIUM 50 MG/SENNA 8.6 MG TAB PO SCH (21:34)
[2016-11-26] MEDS: ENOXAPARIN SODIUM 40 MG/0.4 ML SYRINGE SQ SCH (21:34)
[2016-11-27] VITALS (8 sets, daily range): BP systolic 114–140; BP diastolic 62–93; PULSE 81–101; RESP 16–20; TEMP 96–99.7; O2SAT 92–99
[2016-11-27] MEDS: HYDROmorphone HCL PCA 6 MG/30 ML IV SCH ×7 (00:19→22:57)
[2016-11-27] MEDS: PCA - TOTAL MG DILAUDID DELIVERED PER SHIFT SCH ×3 (06:00→22:00)
[2016-11-27] MEDS: HYDROmorphone HCL PF 2 MG/ML VIAL IV PUSH PRN ×2 (08:50→15:21)
[2016-11-27] MEDS: SODIUM CHLORIDE 0.9% FLUSH 10 ML FLUSH IV FLUSH SCH ×2 (08:51→23:24)
[2016-11-27] MEDS: DOCUSATE SODIUM 50 MG/SENNA 8.6 MG TAB PO SCH ×2 (08:52→23:05)
--- NOTE | 2016-11-27 09:47 | HHI.GIFU ---
Subjective Remarks Resting in bed. Complains of right upper extremity pain despite the LICENSED MORTICIAN. He is able to move his fingers slightly but states it hurts and it is very difficult to move because of the swelling. He denies any nausea or vomiting or abdominal pain. (Yara Ramesh) Objective Vitals I&O Vital Signs Date Time Temp Pulse Resp B/P (MAP) Pulse Ox O2 Delivery O2 Flow Rate FiO2 11/27/16 09:15 97.5 93 18 127/77 (94) 92 11/27/16 08:52 18 11/27/16 06:10 18 11/27/16 06:00 18 11/27/16 05:32 96.0 11/27/16 05:00 99.0 101 18 114/67 (83) 96 11/27/16 03:09 18 11/27/16 00:37 98.1 98 18 122/72 (89) 95 11/27/16 00:27 18 11/27/16 00:19 18 11/26/16 23:47 96.0 11/26/16 21:35 18 11/26/16 21:33 18 11/26/16 20:00 98.2 97 18 117/68 (84) 95 11/26/16 14:00 16 11/26/16 13:30 98.4 85 16 116/61 (79) 96 11/26/16 11:15 99.0 86 17 117/59 (78) 95 11/26/16 10:26 18 I/O 11/26/16 11/26/16 11/26/16 11/27/16 11/27/16 11/27/16 07:00 15:00 23:00 07:00 15:00 23:00 Intake Total 840 ml Output Total 450 ml 950 ml Balance 390 ml -950 ml IV Total 840 ml Drainage Total 450 ml 950 ml # Voids 2 2 Imaging Last Impressions Liver Ultrasound 11/26/16 0000 Signed Impressions: Service Date/Time: Saturday, November 26, 2016 10:04 - CONCLUSION: 1. There is a single 1.4 cm hyperechoic mass in the right lobe suggestive of a hemangioma. 2. No evidence of gallstones or biliary tract obstruction. Humble Mendez MD Upper Extremity CTA 11/24/16 0000 Signed Impressions: Service Date/Time: Thursday, November 24, 2016 01:01 - CONCLUSION: 1. Occlusion of the ulnar artery approximately 5 cm distal to its origin and occlusion of the proximal radial artery associated with forearm soft tissue swelling. Findings could be related to an early compartment syndrome. Jayesh Farris MD Radius/Ulna X-Ray 11/24/16 0000 Signed Impressions: Service Date/Time: Thursday, November 24, 2016 01:30 - CONCLUSION: 1. Soft tissue swelling of the forearm. No radiopaque foreign body or acute bony abnormality. Jayesh Farris MD Hand X-Ray 11/24/16 0000 Signed Impressions: Service Date/Time: Thursday, November 24, 2016 01:30 - CONCLUSION: 1. No acute findings. No radiopaque foreign body identified. Jayesh Farris MD Physical Exam HEENT: Normocephalic; atraumatic; no jaundice. CHEST: CTA CARDIAC: RRR ABDOMEN: Soft, nondistended, nontender; no hepatosplenomegaly; bowel sounds are present in all four quadrants. EXTREMITIES: Right upper extremity edematous, elevated on pillows, wound vac drsg x 2, moves fingers slightly. 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 (Yara Ramesh [facility]) Assessment and Plan Plan ASSESSMENT: - Elevated LFTs. No prior known hx of liver disease. Toxicology screen (+) for opiates, benzodiazepines, cocaine, cannabinoids. He reports that he injected Michelle late night and almost immediately had severe pain and swelling of RUE. No n/v, abdominal pain. HCV Ab (+). Genotype and viral load pending. RUQ US ( 11/26/16)---> there is a single 1.4 cm hyperechoic Mass in the right lobe suggestive of hemangioma. No evidence of gallstones or biliary tract obstruction. LFTs are improving. T bili 0.4, AST 190, ALT 61, alkaline phosphatase 71. Likely, his LFT derangement is related to polysubstance abuse, muscle injury, perhaps on possible underlying HCV infection. - Hepatitis C Antibodies. Genotype and viral load are pending - Liver mass on RUQ US. KUs with single 1.4 cm hyperechoic mass in mendez right lobe suggestive of a hemangioma. - Compartment syndrome RUE. Pt developed severe pain/swelling after injecting Michelle into right ac. CTA RUE(11/24/16)---> occlusion of the ulnar artery approximately 5 cm distal to its origin and occlusion of the proximal radial artery associated with forearm soft tissue swelling. Findings could be related to an early compartment syndrome. S/P Fasciotomy with wound vac placement Per CVT - PSA. Needs complete cessation. PLAN: - LYNNE - AFP level - HCV Genotype and Viral load - Monitor LFTs - Avoid hepatotoxins - Supportive care - Further recommendations to follow based on results of above - Pt seen and examined by Dr. Skaggs and myself and this note is written on his behalf (Yara Ramesh) Physician Comments Patient seen and examined Agree with above Continue with current supportive care Monitor labs Not much to add from a GI standpoint Patient will need follow-up with GI post discharge It is also emphasized that he needs to be off any and all drugs in order for us to proceed with hepatitis C treatment We will sign off (Lex Skaggs MD) Yara Ramesh Nov 27, 2016 09:47 Lex Skaggs MD Nov 27, 2016 21:41
[2016-11-27] MEDS ORDERED: ACETAMINOPHEN 1000 MG/100 ML 100 ML IV ONE (11:07)
[2016-11-27] MEDS ORDERED: HYDROmorphone HCL PF 2 MG/ML VIAL ONE (11:07)
[2016-11-27] MEDS ORDERED: CHLORHEXIDINE GLUCONATE 2 % 1 PACK (2 CLOTHS) TOPICAL PRN (11:15)
[2016-11-27] MEDS ORDERED: METOPROLOL TARTRATE 25 MG TAB PO PRN (11:15)
[2016-11-27] MEDS ORDERED: SODIUM CHLORID 0.9% 500 ML IV PRN (11:15)
[2016-11-27] MEDS ORDERED: POVIDONE IODINE 5% (ANTISEPSIS KIT) 4 APPLICATIONS EACH NARE PRN (11:15)
[2016-11-27] MEDS ORDERED: LACTATED RINGER'S 1000 ML IV PRN (11:15)
[2016-11-27] MEDS ORDERED: INSULIN HUMAN REGULAR 1,000 UNITS/10 ML VIAL SQ PRN (11:15)
[2016-11-27] MEDS ORDERED: DO NOT ADM ANY ANTICOAGULANT DRUGS PRN (12:12)
[2016-11-27] MEDS ORDERED: *MEPERIDINE 25 MG INJ VIAL PERIprocedural Use ONLY ONE (12:20)
--- NOTE | 2016-11-27 13:34 | HHI.PR ---
Subjective Remarks Pain treatments are in place, patient's primary complaint is pain. Today he status post wound VAC change with debridement. No new complaints from the patient. Objective Vital Signs Date Time Temp Pulse Resp B/P (MAP) Pulse Ox O2 Delivery O2 Flow Rate FiO2 11/27/16 13:16 97.9 81 18 140/93 (109) 99 11/27/16 12:30 82 16 138/76 (96) 99 Nasal Cannula 2 11/27/16 12:20 98.3 97 16 107/68 (81) 100 Nasal Cannula 3 11/27/16 09:58 19 11/27/16 09:15 97.5 93 18 127/77 (94) 92 11/27/16 08:52 18 11/27/16 06:10 18 11/27/16 06:00 18 11/27/16 05:32 96.0 11/27/16 05:00 99.0 101 18 114/67 (83) 96 11/27/16 03:09 18 11/27/16 00:37 98.1 98 18 122/72 (89) 95 11/27/16 00:27 18 11/27/16 00:19 18 11/26/16 23:47 96.0 11/26/16 21:35 18 11/26/16 21:33 18 11/26/16 20:00 98.2 97 18 117/68 (84) 95 11/26/16 14:00 16 I/O 11/26/16 11/26/16 11/26/16 11/27/16 11/27/16 11/27/16 07:00 15:00 23:00 07:00 15:00 23:00 Intake Total 840 ml 500 ml Output Total 450 ml 950 ml 5 ml Balance 390 ml -950 ml 495 ml IV Total 840 ml Other 500 ml Drainage Total 450 ml 950 ml Estimated Blood Loss 5 ml # Voids 2 2 Result Diagram: 11/26/1664711/26/16647 Objective Remarks GENERAL: NAD, A&Ox3 HEAD: Normocephalic. NECK: Supple, trachea midline. No lymphadenopathy. EYES: No scleral icterus. No injection or drainage. CARDIOVASCULAR: Regular rate and rhythm without murmurs, gallops, or rubs. RESPIRATORY: Breath sounds equal bilaterally. No accessory muscle use. GASTROINTESTINAL: Abdomen soft, non-tender, nondistended. MUSCULOSKELETAL: No cyanosis. Patient's right arm has a large forearm wound VAC extending the length of his forearm, his hand has warmth and capillary refill. SKIN: Warm and dry. NEURO: No focal neurological deficitis. A/P Problem List: (1) Hepatitis C ICD Code: B19.20 - Unspecified viral hepatitis C without hepatic coma (2) Compartment syndrome of right upper extremity ICD Code: T79.A11A - Traumatic compartment syndrome of right upper extremity, initial encounter Status: Acute (3) Compartment syndrome of hand ICD Code: T79.A19A - Traumatic compartment syndrome of unspecified upper extremity, initial encounter Status: Acute (4) Ischemia of hand ICD Code: I99.8 - Other disorder of circulatory system Status: Acute (5) Ischemia of digits of hand ICD Code: I99.8 - Other disorder of circulatory system Status: Acute Assessment and Plan Assessment and Plan 31-year-old male admitted secondary to acute compartment syndrome of the right forearm. Compartment syndrome, right forearm Continue management per surgery team S/P right hand fasciotomy, carpal tunnel release, deep dorsal forearm fasciotomy , deep volar forearm arm fasciotomy Continue wound VAC Continue MAINTENANCE WELDER pump for pain control Continue Colace Right hand ischemia Resolved with fasciotomy Hypokalemia Monitor and replace as needed IV drug abuse Patient is beyond withdrawal window at this point Patient counseled not to abuse IV drugs Hepatitis C Standard precautions DVT prophylaxis SCDs Problem Qualifiers (1) Compartment syndrome of right upper extremity: Qualified Codes: T79.A11A - Traumatic compartment syndrome of right upper extremity, initial encounter (2) Compartment syndrome of hand: Qualified Codes: T79.A11A - Traumatic compartment syndrome of right upper extremity, initial encounter Ctaalino Jerome MD Nov 27, 2016 13:34
[2016-11-27] MEDS: ENOXAPARIN SODIUM 40 MG/0.4 ML SYRINGE SQ SCH (23:24)
[2016-11-28] VITALS: BP 153/84; PULSE 89; RESP 18; TEMP 98.9; O2SAT 97
[2016-11-28] MEDS: HYDROmorphone HCL PCA 6 MG/30 ML IV SCH ×6 (01:57→22:52)
[2016-11-28 04:00] VITALS: BP 124/71; PULSE 88; RESP 18; TEMP 99.2; O2SAT 97
[2016-11-28] MEDS: PCA - TOTAL MG DILAUDID DELIVERED PER SHIFT SCH ×3 (06:00→22:00)
--- NOTE | 2016-11-28 07:53 | MP ---
cc: MICHELL OZUNA MD DATE OF SURGERY 11/27/2016 PREOPERATIVE DIAGNOSIS Compartment syndrome of the right arm after shooting drugs. POSTOPERATIVE DIAGNOSIS Compartment syndrome of the right arm after shooting drugs. OPERATIVE PROCEDURE Change of the wound Vac, debridement at the fasciotomy sites. SURGEON Michell Ozuna MD ANESTHESIA General ESTIMATED BLOOD LOSS 10 cc PROCEDURE NOTE The patient prepped and draped in the usual fashion. The area exposed. After removing the wound Vac, it is apparent the patient has swollen, red, bulging muscles in the volar and dorsal side of the forearm. The volar side is very impressive with a large amount of muscle tissue exposed. However, there is no necrotic muscle. This is irrigated with copious amounts of saline and meticulous hemostasis obtained. Small amounts of muscle are debrided to cleaned it up. The hand is now observed. The patient has a suture in the palm of his hand and distal thenar eminence and then the dorsal surface of the hand has two fasciotomy sites which are completely clean. These are also irrigated and a new wound Vac is placed and the patient taken out of the operating room in stable condition. Michell PIERCE/CARISSA /4:36 PM /7:40 AM
[2016-11-28 08:00] VITALS: BP 131/76; PULSE 82; RESP 18; TEMP 97.7; O2SAT 96
[2016-11-28] MEDS: SODIUM CHLORIDE 0.9% FLUSH 10 ML FLUSH IV FLUSH SCH ×2 (08:35→21:00)
[2016-11-28] MEDS: DOCUSATE SODIUM 50 MG/SENNA 8.6 MG TAB PO SCH ×2 (08:35→21:42)
--- NOTE | 2016-11-28 11:39 | HHI.PR ---
Subjective Remarks Unchanged from previous day. Pain is present but treatments remain in place. No nausea or vomiting. Objective Vital Signs Date Time Temp Pulse Resp B/P (MAP) Pulse Ox O2 Delivery O2 Flow Rate FiO2 11/28/16 08:32 18 11/28/16 08:00 97.7 82 18 131/76 (94) 96 11/28/16 06:22 18 11/28/16 06:00 18 11/28/16 05:23 18 11/28/16 04:00 99.2 88 18 124/71 (88) 97 11/28/16 01:57 18 11/28/16 00:00 98.9 89 18 153/84 (107) 97 11/27/16 22:57 18 11/27/16 22:00 18 11/27/16 20:00 99.7 90 20 118/62 (80) 96 11/27/16 18:12 20 11/27/16 16:17 98.4 93 16 118/72 (87) 94 11/27/16 15:56 97 21 11/27/16 15:20 20 11/27/16 15:19 20 11/27/16 13:16 97.9 81 18 140/93 (109) 99 11/27/16 12:45 98.1 80 16 132/75 (94) 96 Room Air 11/27/16 12:30 82 16 138/76 (96) 99 Nasal Cannula 2 11/27/16 12:20 98.3 97 16 107/68 (81) 100 Nasal Cannula 3 I/O 11/27/16 11/27/16 11/27/16 11/28/16 11/28/16 11/28/16 06:59 14:59 22:59 06:59 14:59 22:59 Intake Total 500 ml 480 ml 1300 ml Output Total 950 ml 975 ml 650 ml 1100 ml Balance -950 ml -475 ml -170 ml 200 ml Intake Oral 480 ml IV Total 1300 ml Other 500 ml Output Urine Total 650 ml 650 ml 200 ml Drainage Total 950 ml 320 ml 900 ml Estimated Blood Loss 5 ml # Voids 2 0 # Bowel Movements 1 Result Diagram: 11/26/1648 11/26/1648 Objective Remarks GENERAL: NAD, A&Ox3 HEAD: Normocephalic. NECK: Supple, trachea midline. No lymphadenopathy. EYES: No scleral icterus. No injection or drainage. CARDIOVASCULAR: Regular rate and rhythm without murmurs, gallops, or rubs. RESPIRATORY: Breath sounds equal bilaterally. No accessory muscle use. GASTROINTESTINAL: Abdomen soft, non-tender, nondistended. MUSCULOSKELETAL: No cyanosis. Patient's right arm has a large forearm wound VAC extending the length of his forearm, his hand has warmth and capillary refill. SKIN: Warm and dry. NEURO: No focal neurological deficitis. A/P Problem List: (1) Hepatitis C ICD Code: B19.20 - Unspecified viral hepatitis C without hepatic coma (2) Compartment syndrome of right upper extremity ICD Code: T79.A11A - Traumatic compartment syndrome of right upper extremity, initial encounter Status: Acute (3) Compartment syndrome of hand ICD Code: T79.A19A - Traumatic compartment syndrome of unspecified upper extremity, initial encounter Status: Acute (4) Ischemia of hand ICD Code: I99.8 - Other disorder of circulatory system Status: Acute (5) Ischemia of digits of hand ICD Code: I99.8 - Other disorder of circulatory system Status: Acute Assessment and Plan Assessment and Plan 31-year-old male admitted secondary to acute compartment syndrome of the right forearm. Continue to follow clinically. Surgeon following. Compartment syndrome, right forearm Continue management per surgery team S/P right hand fasciotomy, carpal tunnel release, deep dorsal forearm fasciotomy , deep volar forearm arm fasciotomy Continue wound VAC Continue MAINTENANCE TRUCK DRIVER pump for pain control Continue Colace Right hand ischemia Resolved with fasciotomy Hypokalemia Monitor and replace as needed IV drug abuse Patient is beyond withdrawal window at this point Patient counseled not to abuse IV drugs Hepatitis C Standard precautions DVT prophylaxis SCDs Problem Qualifiers (1) Compartment syndrome of right upper extremity: Qualified Codes: T79.A11A - Traumatic compartment syndrome of right upper extremity, initial encounter (2) Compartment syndrome of hand: Qualified Codes: T79.A11A - Traumatic compartment syndrome of right upper extremity, initial encounter Catalino Jerome MD Nov 28, 2016 11:39
[2016-11-28] MEDS: HYDROmorphone HCL PF 2 MG/ML VIAL IV PUSH PRN ×2 (13:29→21:50)
[2016-11-28 16:00] VITALS: BP 130/72; PULSE 82; RESP 20; TEMP 98.2; O2SAT 97
[2016-11-28 20:00] VITALS: BP 115/59; PULSE 85; RESP 18; TEMP 98.6; O2SAT 98
[2016-11-28] MEDS: ENOXAPARIN SODIUM 40 MG/0.4 ML SYRINGE SQ SCH (21:42)
[2016-11-29] VITALS (7 sets, daily range): BP systolic 125–136; BP diastolic 71–83; PULSE 77–88; RESP 17–20; TEMP 97.6–99.3; O2SAT 97–100
[2016-11-29] MEDS: HYDROmorphone HCL PF 1 MG/ML VIAL IV PUSH PRN (02:56)
[2016-11-29] MEDS: HYDROmorphone HCL PCA 6 MG/30 ML IV SCH ×7 (03:00→23:20)
[2016-11-29] MEDS: PCA - TOTAL MG DILAUDID DELIVERED PER SHIFT SCH ×3 (06:00→23:21)
[2016-11-29] MEDS: HYDROmorphone HCL PF 2 MG/ML VIAL IV PUSH PRN ×4 (06:07→21:35)
[2016-11-29] MEDS: SODIUM CHLORIDE 0.9% FLUSH 10 ML FLUSH IV FLUSH SCH ×2 (09:00→21:00)
[2016-11-29] MEDS: DOCUSATE SODIUM 50 MG/SENNA 8.6 MG TAB PO SCH ×2 (09:00→21:38)
[2016-11-29 09:50] LABS: HCV RNA PCR IU/ML LESS THAN 15 IU/mL (0-14); HCV RNA PCR LOGIU/ML LESS THAN 1.18 (0-1.18)
--- NOTE | 2016-11-29 12:05 | HHI.PR ---
Subjective Remarks No new complaints from the patient. He continues to have pain. Situation discussed to consult recommended. Lasix surgery will be available on 12/06/16. Objective Vital Signs Date Time Temp Pulse Resp B/P (MAP) Pulse Ox O2 Delivery O2 Flow Rate FiO2 11/29/16 10:10 16 11/29/16 10:10 16 11/29/16 09:22 16 11/29/16 08:00 98.6 78 20 136/71 (92) 98 11/29/16 06:08 18 11/29/16 06:00 18 11/29/16 04:00 99.3 80 18 126/73 (90) 99 11/29/16 03:00 18 11/29/16 00:00 99.1 77 20 131/73 (92) 97 11/28/16 22:52 18 11/28/16 22:00 18 11/28/16 21:30 21 11/28/16 20:00 98.6 85 18 115/59 (77) 98 11/28/16 17:58 18 11/28/16 16:00 98.2 82 20 130/72 (91) 97 11/28/16 13:49 18 11/28/16 13:28 18 I/O 11/28/16 11/28/16 11/28/16 11/29/16 11/29/16 11/29/16 07:00 15:00 23:00 07:00 15:00 23:00 Intake Total 1300 ml Output Total 1100 ml 550 ml 450 ml 1050 ml Balance 200 ml -550 ml -450 ml -1050 ml IV Total 1300 ml Output Urine Total 200 ml 550 ml 600 ml Drainage Total 900 ml 450 ml 450 ml # Voids 6 # Bowel Movements 1 0 0 Result Diagram: 11/26/1648 11/26/1648 Objective Remarks GENERAL: NAD, A&Ox3 HEAD: Normocephalic. NECK: Supple, trachea midline. No lymphadenopathy. EYES: No scleral icterus. No injection or drainage. CARDIOVASCULAR: Regular rate and rhythm without murmurs, gallops, or rubs. RESPIRATORY: Breath sounds equal bilaterally. No accessory muscle use. GASTROINTESTINAL: Abdomen soft, non-tender, nondistended. MUSCULOSKELETAL: No cyanosis. Patient's right arm has a large forearm wound VAC extending the length of his forearm, his hand has warmth and capillary refill. SKIN: Warm and dry. NEURO: No focal neurological deficitis. A/P Problem List: (1) Hepatitis C ICD Code: B19.20 - Unspecified viral hepatitis C without hepatic coma (2) Compartment syndrome of right upper extremity ICD Code: T79.A11A - Traumatic compartment syndrome of right upper extremity, initial encounter Status: Acute (3) Compartment syndrome of hand ICD Code: T79.A19A - Traumatic compartment syndrome of unspecified upper extremity, initial encounter Status: Acute (4) Ischemia of hand ICD Code: I99.8 - Other disorder of circulatory system Status: Acute (5) Ischemia of digits of hand ICD Code: I99.8 - Other disorder of circulatory system Status: Acute Assessment and Plan Assessment and Plan 31-year-old male admitted secondary to acute compartment syndrome of the right forearm. Continue to follow clinically. Surgeon following. Plastic surgery will be consulted. Plastic surgery available 12/06/16. Compartment syndrome, right forearm Continue management per surgery team S/P right hand fasciotomy, carpal tunnel release, deep dorsal forearm fasciotomy , deep volar forearm arm fasciotomy Continue wound VAC Continue HOSPITAL ACCOUNT MANAGER pump for pain control Continue Colace Right hand ischemia Resolved with fasciotomy Hypokalemia Monitor and replace as needed IV drug abuse Patient is beyond withdrawal window at this point Patient counseled not to abuse IV drugs Hepatitis C Standard precautions DVT prophylaxis SCDs Problem Qualifiers (1) Compartment syndrome of right upper extremity: Qualified Codes: T79.A11A - Traumatic compartment syndrome of right upper extremity, initial encounter (2) Compartment syndrome of hand: Qualified Codes: T79.A11A - Traumatic compartment syndrome of right upper extremity, initial encounter Catalino Jerome MD Nov 29, 2016 12:05
[2016-11-29 19:53] LABS: HEPATITIS C RNA GENOTYPE NOT DETECTED (NOT DETECTD)
[2016-11-29] MEDS: ENOXAPARIN SODIUM 40 MG/0.4 ML SYRINGE SQ SCH (21:38)
[2016-11-30 00:11] VITALS: BP 119/64; PULSE 92; RESP 17; TEMP 97.9; O2SAT 97
[2016-11-30] MEDS: HYDROmorphone HCL PCA 6 MG/30 ML IV SCH ×7 (02:34→22:20)
[2016-11-30] MEDS: HYDROmorphone HCL PF 2 MG/ML VIAL IV PUSH PRN (02:57)
[2016-11-30 04:30] VITALS: BP 110/63; PULSE 80; RESP 17; TEMP 98.2; O2SAT 98
[2016-11-30] MEDS: PCA - TOTAL MG DILAUDID DELIVERED PER SHIFT SCH ×3 (06:52→22:29)
[2016-11-30] MEDS: DOCUSATE SODIUM 50 MG/SENNA 8.6 MG TAB PO SCH ×2 (08:09→21:00)
[2016-11-30] MEDS: SODIUM CHLORIDE 0.9% FLUSH 10 ML FLUSH IV FLUSH SCH ×2 (08:12→22:20)
[2016-11-30 08:58] LABS: HEMATOCRIT 32.2 % (39.0-51.0); MEAN CELL VOLUME 82.2 FL (80.0-100.0); MEAN CORPUSCULAR HEMOGLOBIN 27.3 PG (27.0-34.0); MEAN CORPUSCULAR HGB CONC 33.3 % (32.0-36.0); PLATELET COUNT 358 TH/MM3 (150-450); RED BLOOD COUNT 3.91 MIL/MM3 (4.50-5.90); RED CELL DISTRIBUTION WIDTH 17.5 % (11.6-17.2); REVIEW FLAG FINAL; WHITE BLOOD COUNT 5.5 TH/MM3 (4.0-11.0)
[2016-11-30 10:14] VITALS: BP 123/68; PULSE 74; RESP 20; TEMP 97.6; O2SAT 100
[2016-11-30 12:12] VITALS: BP 127/72; PULSE 87; RESP 20; TEMP 98.2; O2SAT 97
[2016-11-30] MEDS ORDERED: oxyCODONE/ACETAMINOPHEN 7.5 MG/325 MG TAB PO PRN (12:45)
--- NOTE | 2016-11-30 13:06 | HHI.PR ---
Subjective Remarks Patient laying in bed with wound vac x [address] mother at bedside Patient c/o pain in the RUE despite Dilaudid PIN MAKER patient also concerned that he is unable to move the fingers on hie right hand Objective Vitals Vital Signs Date Time Temp Pulse Resp B/P (MAP) Pulse Ox O2 Delivery O2 Flow Rate FiO2 11/30/16 12:12 98.2 87 20 127/72 (90) 97 11/30/16 10:41 16 11/30/16 10:14 97.6 74 20 123/68 (86) 100 11/30/16 10:02 18 11/30/16 06:52 18 11/30/16 05:31 18 11/30/16 04:30 98.2 80 17 110/63 (79) 98 11/30/16 00:11 97.9 92 17 119/64 (82) 97 11/29/16 23:21 20 11/29/16 23:20 20 11/29/16 20:27 97.6 88 17 135/76 (95) 100 11/29/16 18:09 16 11/29/16 16:00 98.1 88 20 125/78 (94) 97 11/29/16 15:58 16 11/29/16 13:40 16 I/O 11/29/16 11/29/16 11/29/16 11/30/16 11/30/16 11/30/16 07:00 15:00 23:00 07:00 15:00 23:00 Intake Total 1360 ml 240 ml Output Total 1050 ml 2120 ml 700 ml 920 ml Balance -1050 ml -760 ml -460 ml -920 ml Intake Oral 360 ml 240 ml IV Total 1000 ml Output Urine Total 600 ml 1275 ml 700 ml 220 ml Drainage Total 450 ml 845 ml 700 ml # Bowel Movements 0 1 Result Diagram: 11/30/16 0757 11/26/16 0648 Other Results Laboratory Tests Test 11/27/16 17:20 11/30/16 07:57 Tumor Marker Alpha Fetoprotein 1.8 NG/ML White Blood Count 5.5 TH/MM3 Red Blood Count 3.91 MIL/MM3 Hemoglobin 10.7 GM/DL Hematocrit 32.2 % Mean Corpuscular Volume 82.2 FL Mean Corpuscular Hemoglobin 27.3 PG Mean Corpuscular Hemoglobin Concent 33.3 % Red Cell Distribution Width 17.5 % Platelet Count 358 TH/MM3 Mean Platelet Volume 7.1 FL Imaging Last Impressions Liver Ultrasound 11/26/16 Signed Impressions: Service Date/Time: Saturday, November 26, 2016 10:04 - CONCLUSION: 1. There is a single 1.4 cm hyperechoic mass in the right lobe suggestive of a hemangioma. 2. No evidence of gallstones or biliary tract obstruction. Humble Mendez MD Upper Extremity CTA 11/24/16 Signed Impressions: Service Date/Time: Thursday, November 24, 2016 01:01 - CONCLUSION: 1. Occlusion of the ulnar artery approximately 5 cm distal to its origin and occlusion of the proximal radial artery associated with forearm soft tissue swelling. Findings could be related to an early compartment syndrome. Jayesh Farris MD Radius/Ulna X-Ray 11/24/16 Signed Impressions: Service Date/Time: Thursday, November 24, 2016 01:30 - CONCLUSION: 1. Soft tissue swelling of the forearm. No radiopaque foreign body or acute bony abnormality. Jayesh Farris MD Hand X-Ray 11/24/16 Signed Impressions: Service Date/Time: Thursday, November 24, 2016 01:30 - CONCLUSION: 1. No acute findings. No radiopaque foreign body identified. Jayesh Farris MD Objective Remarks GENERAL: NAD, A&Ox3 HEAD: Normocephalic. NECK: Supple, trachea midline. No lymphadenopathy. EYES: No scleral icterus. No injection or drainage. CARDIOVASCULAR: Regular rate and rhythm RESPIRATORY: Breath sounds clear and equal bilaterally. No accessory muscle use. GASTROINTESTINAL: Abdomen soft, non-tender, nondistended. MUSCULOSKELETAL: No cyanosis. Patient's right arm has 2 large forearm wound VACs extending the length of his forearm, his hand has warmth and capillary refill- 1st and 3rd digit of right hand dark/black in color SKIN: Warm and dry. NEURO: No focal neurological deficits. Procedures 1. Right arm volar and dorsal fasciotomy. 2. Exploration of the vessels. 3. Wound VAC placement. A/P Problem List: (1) Compartment syndrome of right upper extremity ICD Code: T79.A11A - Traumatic compartment syndrome of right upper extremity, initial encounter Status: Acute (2) Compartment syndrome of hand ICD Code: T79.A19A - Traumatic compartment syndrome of unspecified upper extremity, initial encounter Status: Acute (3) Ischemia of hand ICD Code: I99.8 - Other disorder of circulatory system Status: Acute (4) Ischemia of digits of hand ICD Code: I99.8 - Other disorder of circulatory system Status: Acute Assessment and Plan 31-year-old male admitted secondary to acute compartment syndrome of the right forearm. Continue to follow clinically. Surgeon following. Plastic surgery will be consulted. Plastic surgery available 12/06/16. Compartment syndrome, right forearm Continue management per surgery team S/P right hand fasciotomy, carpal tunnel release, deep dorsal forearm fasciotomy , deep volar forearm arm fasciotomy Continue wound VAC Continue PIN MAKER pump for pain control Continue Colace 1st and 3rd digits dark/black in color - warm to the touch and discoloration seems to be dependent- possible staining will continue to monitor Right hand ischemia Resolved with fasciotomy Hypokalemia Monitor and replace as needed IV drug abuse Patient is beyond withdrawal window at this point Patient counseled not to abuse IV drugs Hepatitis C Standard precautions DVT prophylaxis SCDs Discussed with patient, mother and nurse at bedside also discussed with Dr. Jerome who will adjust his pain medication regiment Problem Qualifiers (1) Compartment syndrome of right upper extremity: Qualified Codes: T79.A11A - Traumatic compartment syndrome of right upper extremity, initial encounter (2) Compartment syndrome of hand: Qualified Codes: T79.A11A - Traumatic compartment syndrome of right upper extremity, initial encounter Smiley Mccoy Nov 30, 2016 13:06
[2016-11-30] MEDS: HYDROmorphone HCL PF 1 MG/ML VIAL IV PUSH PRN ×2 (13:14→22:23)
[2016-11-30 15:52] VITALS: BP 119/69; PULSE 90; RESP 20; TEMP 98.3; O2SAT 96
[2016-11-30] MEDS: oxyCODONE/ACETAMINOPHEN 10 MG/325 MG TAB PO PRN (19:34)
[2016-11-30] MEDS: ENOXAPARIN SODIUM 40 MG/0.4 ML SYRINGE SQ SCH (19:35)
[2016-11-30 20:29] VITALS: BP 121/62; PULSE 90; RESP 17; TEMP 98.4; O2SAT 97
[2016-12-01 00:19] VITALS: BP 123/58; PULSE 84; RESP 17; TEMP 98.3; O2SAT 100
[2016-12-01] MEDS: HYDROmorphone HCL PCA 6 MG/30 ML IV SCH ×6 (01:42→21:55)
[2016-12-01] MEDS ORDERED: POVIDONE IODINE 5% (ANTISEPSIS KIT) 4 APPLICATIONS EACH NARE PRN (04:15)
[2016-12-01] MEDS ORDERED: LACTATED RINGER'S 1000 ML IV PRN (04:15)
[2016-12-01] MEDS ORDERED: SODIUM CHLORID 0.9% 500 ML IV PRN (04:15)
[2016-12-01] MEDS ORDERED: CHLORHEXIDINE GLUCONATE 2 % 1 PACK (2 CLOTHS) TOPICAL PRN (04:15)
[2016-12-01] MEDS ORDERED: INSULIN HUMAN REGULAR 1,000 UNITS/10 ML VIAL SQ PRN (04:15)
[2016-12-01 04:43] VITALS: BP 111/64; PULSE 85; RESP 17; TEMP 98.3; O2SAT 98
--- NOTE | 2016-12-01 06:03 | MB ---
cc: MARIA ELENA KEARNS M.D. DATE OF CONSULTATION 11/30/2016 REASON FOR CONSULTATION Right upper extremity large open wounds. The consult requested for possible closure of the wound or reconstruction with skin graft, etc. HISTORY This is a 31-year-old white male who has been admitted to the [facility] as of November 24, 2016, with a acute compartment syndrome involving the right upper extremity following intravenous drug abuse. The patient injected crystal meth Mollie in his vein. He is right [id number]. The patient has been known to be using IV drugs over the past several years; the records go back to approximately 2009 in [facility] documenting the same with multiple ER visits. The patient was operated on acutely by Dr. Hardwick and also subsequently by Dr. Edward. He has received large fasciotomies of the forearm and also on the palm. He has recovered from the circulation standpoint. He does have still issues moving the fingers and also numbness to the hand and fingers. The patient is not septic. He has a large wound VAC in place both dorsal and volar aspect of the forearm and altogether he had three or four trips to the operating room in order to change the wound VAC dressing and fascia, etc. The patient is not diabetic, does not have any other major medical problems. ALLERGIES He is not allergic to any medications. PHYSICAL EXAMINATION GENERAL: Examination shows a 31-year-old white male with stable vital signs. He is resting in the surgical bed, fully alert and cooperative. GENERAL EXAMINATION: Deferred to on the admission records. Grossly he is not in any distress or shock/ EXTREMITIES: Local examination of the right upper extremity shows extensive swelling involving the entire upper extremity from shoulder down to the fingers. He has two large wound VAC sponges both medial and dorsal covering practically the entire forearm and parts of the elbow. The skin surrounding the sponge appears to be of normal color, although it is very edematous. There is no pustules or abscess or lymphatic streaking of significance noted. The wrist is held in neutral position by the patient. There is a second separate injury involving the proximal part of the palm. The fingers are somewhat cyanotic at the tips but not cold to touch. Upon asking him to move the fingers he barely moves any of the fingers. He is partly unable to move it, partly may be reluctant due to the pain and the looking at the current status of his upper extremity he is afraid that he may end up having an upper extremity amputation due to the significant problems that he has over the past few days. RECOMMENDATIONS Discussion was carried out with the patient as to what I can help him with. First I will need to take him to the OR under anesthesia to remove the wound VAC and examine the wounds if the underlying muscles are viable and some granulation tissue is starting. A skin graft would be a good starting point to let him recover from the open wounds and help him heal all the areas. As far as the function of the underlying muscles, tendons and nerves he will still need to continue to follow with his treating surgeons, both general surgery and the hand surgery, in the long run. He will also need physical therapy and prolonged exercises for several months before the full extent of the damage and recovery can be a realized. The patient was also explained, informed that I will help him through the reconstructive surgery that is needed and for the long-term he will still need to find a local plastic surgeon in the area where he leaves and also that I will not be able to continues seeing him in my office as I am slowing down my practice and do not accept new patients or insurances anymore. The patient agrees to accept all the help that I can offer him while he is in the hospital. He may also be helped through the [facility] either at [facility] or any [facility] facility towards the [place] of the [facility] that he lives in. signed, not fully reviewed MD MONIE Silva/CARIDAD /5:53 PM /5:35 AM [email or web address]
[2016-12-01] MEDS: PCA - TOTAL MG DILAUDID DELIVERED PER SHIFT SCH ×2 (06:50→21:55)
--- NOTE | 2016-12-01 08:26 | HHI.PR ---
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- require intermittent IV Diluadid push for right UE pain denies any constipation, + flatus no abdominal pain Objective Vitals Vital Signs Date Time Temp Pulse Resp B/P (MAP) Pulse Ox O2 Delivery O2 Flow Rate FiO2 12/01/16 06:50 18 12/01/16 05:42 16 12/01/16 04:43 98.3 85 17 111/64 (80) 98 12/01/16 01:42 19 12/01/16 00:19 98.3 84 17 123/58 (79) 100 11/30/16 22:29 19 11/30/16 22:20 18 11/30/16 20:29 98.4 90 17 121/62 (81) 97 11/30/16 19:45 18 11/30/16 19:15 18 11/30/16 16:14 18 11/30/16 15:52 98.3 90 20 119/69 (86) 96 11/30/16 13:45 18 11/30/16 13:17 18 11/30/16 13:12 18 11/30/16 12:12 98.2 87 20 127/72 (90) 97 11/30/16 10:14 97.6 74 20 123/68 (86) 100 11/30/16 10:02 18 I/O 11/30/16 11/30/16 11/30/16 12/01/16 12/01/16 12/01/16 07:00 15:00 23:00 07:00 15:00 23:00 Intake Total 240 ml 720 ml 360 ml Output Total 700 ml 920 ml 750 ml 1400 ml Balance -460 ml -200 ml -390 ml -1400 ml Intake Oral 240 ml 720 ml 360 ml Output Urine Total 700 ml 220 ml 750 ml 700 ml Drainage Total 700 ml 700 ml # Voids 4 # Bowel Movements 0 1 1 Result Diagram: 11/30/16 0757 Imaging Last Impressions Liver Ultrasound 11/26/16 0000 Signed Impressions: Service Date/Time: Saturday, November 26, 2016 10:04 - CONCLUSION: 1. There is a single 1.4 cm hyperechoic mass in the right lobe suggestive of a hemangioma. 2. No evidence of gallstones or biliary tract obstruction. Humble Mendez MD Upper Extremity CTA 11/24/16 0000 Signed Impressions: Service Date/Time: Thursday, November 24, 2016 01:01 - CONCLUSION: 1. Occlusion of the ulnar artery approximately 5 cm distal to its origin and occlusion of the proximal radial artery associated with forearm soft tissue swelling. Findings could be related to an early compartment syndrome. Jayesh Farris MD Radius/Ulna X-Ray 11/24/16 0000 Signed Impressions: Service Date/Time: Thursday, November 24, 2016 01:30 - CONCLUSION: 1. Soft tissue swelling of the forearm. No radiopaque foreign body or acute bony abnormality. Jayesh Farris MD Hand X-Ray 11/24/16 0000 Signed Impressions: Service Date/Time: Thursday, November 24, 2016 01:30 - CONCLUSION: 1. No acute findings. No radiopaque foreign body identified. Jayesh Farris MD Objective Remarks awake and alert, oriented x 3 anicteric lungs clear regular rhythm abdomen- flat, soft, nontender extremities- Right UE/forearm- VAC in place, good radial pulses, mild swelling of the fingers, bluidsh discoloration fo tip of right thumb and middle finger LE- no edema, no calf tenderness Procedures 1. Right arm volar and dorsal fasciotomy. 2. Exploration of the vessels. 3. Wound VAC placement. A/P Problem List: (1) Compartment syndrome of right upper extremity ICD Code: T79.A11A - Traumatic compartment syndrome of right upper extremity, initial encounter Status: Acute (2) Compartment syndrome of hand ICD Code: T79.A19A - Traumatic compartment syndrome of unspecified upper extremity, initial encounter Status: Acute (3) Ischemia of hand ICD Code: I99.8 - Other disorder of circulatory system Status: Acute (4) Ischemia of digits of hand ICD Code: I99.8 - Other disorder of circulatory system Status: Acute Assessment and Plan 31-year-old male admitted secondary to acute compartment syndrome of the right forearm. Continue to follow clinically. Surgeon following. Plastic surgery will be consulted. Plastic surgery available 12/06/16. Compartment syndrome, right forearm S/P right hand fasciotomy, carpal tunnel release, deep dorsal forearm fasciotomy , deep volar forearm arm fasciotomy Continue wound VAC- going for surgery today by Dr. 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 Continue Colace 1st and 3rd digits dark/black in color - no cyanosis- warm to the touch no discoloration seems to be dependent- possible staining will continue to monitor Right hand ischemia S/P fasciotomy persistent discoloration of right middle finger tip Hypokalemia- resolved Monitor and replace as needed IV drug abuse Patient is beyond withdrawal window at this point Patient counseled not to abuse IV drugs Hepatitis C Standard precautions DVT prophylaxis SCDs Discussed with patient, mother and nurse at bedside Problem Qualifiers (1) Compartment syndrome of right upper extremity: Qualified Codes: T79.A11A - Traumatic compartment syndrome of right upper extremity, initial encounter (2) Compartment syndrome of hand: Qualified Codes: T79.A11A - Traumatic compartment syndrome of right upper extremity, initial encounter Jennifer Kwan MD Dec 01, 2016 08:26
[2016-12-01 08:43] VITALS: BP 116/62; PULSE 78; RESP 18; TEMP 98.6; O2SAT 98
[2016-12-01] MEDS: DOCUSATE SODIUM 50 MG/SENNA 8.6 MG TAB PO SCH ×2 (09:00→21:58)
[2016-12-01] MEDS: SODIUM CHLORIDE 0.9% FLUSH 10 ML FLUSH IV FLUSH SCH ×2 (09:00→21:59)
[2016-12-01 12:07] VITALS: BP 105/61; PULSE 79; RESP 18; TEMP 98.1; O2SAT 96
[2016-12-01] MEDS ORDERED: HYDROmorphone HCL PF 2 MG/ML VIAL ONE (13:38)
[2016-12-01] MEDS ORDERED: BUPIVACAINE/EPINEPHRINE 0.5% PF 10 ML VIAL ONE (13:46)
[2016-12-01] MEDS ORDERED: BACITRACIN TOP OINT 15 GM TUBE ONE (13:46)
[2016-12-01] MEDS ORDERED: ceFAZolin INJ 1,000 MG VIAL IV ONE (14:21)
--- NOTE | 2016-12-01 14:58 | PD.OP ---
Operative Report Right upper extremity multiple open wounds of forearm and dorsal hand s/p Fasciotomies for compartment syndrom Postoperative Diagnosis: Right upper extremity multiple open wounds of forearm and dorsal hand s/p Fasciotomies for compartment syndrome Procedure: Removal of VAC dressing and debridement of all wounds Right upper extremity 15 x 8 dorsal forearm, 25 x 10 volar forearm and 3x2 - two wounds on dorsal hand Anesthesia: gen Surgeon: Alverto Ely Sports Book Server(s): RN Resident Surgeon: none Operation and Findings: After anesthesia, the VAC dressings on the Right UE were all remove time out and prep and drape was done Ancef 1 gm IV Wounds were debrided sharply and with Betadine scrub brush side for several minutes All wright non viable areas were removed All muscles and subcutaneous tissues appear viable and show fresh capillary bleeding. All areas thoroughly washed with saline. Minimal active bleeding Dressed with Xeroform and Betadine soaked Yuval bandage wrapped directly. Blood loss approx 25 cc No complications Alverto Ely MD Dec 01, 2016 14:58
[2016-12-01] MEDS ORDERED: DO NOT ADM ANY ANTICOAGULANT DRUGS PRN (15:00)
[2016-12-01] MEDS ORDERED: *morphine SULFATE 8 MG/ML PERIprocedure ONLY ONE ×2 (15:03→15:31)
[2016-12-01 16:40] VITALS: BP 136/62; PULSE 82; RESP 18; TEMP 98.2; O2SAT 95
[2016-12-01 21:02] VITALS: BP 125/70; PULSE 91; RESP 20; TEMP 98.5; O2SAT 99
[2016-12-01] MEDS: ENOXAPARIN SODIUM 40 MG/0.4 ML SYRINGE SQ SCH (21:59)
[2016-12-01] MEDS: oxyCODONE/ACETAMINOPHEN 10 MG/325 MG TAB PO PRN (22:08)
[2016-12-02] VITALS (9 sets, daily range): BP systolic 109–129; BP diastolic 55–77; PULSE 72–90; RESP 16–20; TEMP 97.9–98.4; O2SAT 96–100
[2016-12-02] MEDS: HYDROmorphone HCL PF 1 MG/ML VIAL IV PUSH PRN ×4 (01:00→22:04)
[2016-12-02] MEDS: HYDROmorphone HCL PCA 6 MG/30 ML IV SCH ×3 (01:16→09:22)
[2016-12-02] MEDS: PCA - TOTAL MG DILAUDID DELIVERED PER SHIFT SCH (06:25)
[2016-12-02] MEDS: SODIUM CHLORIDE 0.9% FLUSH 10 ML FLUSH IV FLUSH SCH ×2 (09:00→20:37)
[2016-12-02] MEDS: oxyCODONE/ACETAMINOPHEN 10 MG/325 MG TAB PO PRN ×3 (09:22→20:36)
[2016-12-02] MEDS: DOCUSATE SODIUM 50 MG/SENNA 8.6 MG TAB PO SCH ×2 (09:23→20:36)
--- NOTE | 2016-12-02 10:32 | PD.CAR.PN ---
CVT Progress Note Subjective/Hospital Course: 11/24/16 Patient is status post the fasciotomy of the right arm with retrieval of excellent proximal and distal pulses Wound VAC in place draining serous and serosanguineous fluid Patient can move available with ease has partial sensation in the hand and has excellent strong palpable and dopplerable brachial pulse and Doppler brisk radial and ulnar pulse Due to hand swelling capillary refill in fingers is still decreased but hand is warm While the swelling of the arm has decreased somewhat it'll take a long time before the arm can be closed either by a skin graft or acellular matrix followed by skin graft Hand this no more swollen than yesterday and I have called Dr. 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 Patient will transfer to the floor this point Eventually he will need grafting or a cell placement to the volar surface fasciotomy, while the dorsal surface fasciotomy will possibly close in the OR in the future 12/02/16 Patient doing well at this time Wound VAC has been changed and drainage is serosanguineous no signs of infection Dr. Ely's plastic surgery evaluation is greatly appreciated and when patient is ready for skin graft he can have this done He can follow-up with my office after that once he is discharged Nothing to add from general surgery at this time Objective: Vital Signs Date Time Temp Pulse Resp B/P (MAP) Pulse Ox O2 Delivery O2 Flow Rate FiO2 12/02/16 09:22 16 12/02/16 08:00 97.9 72 16 122/63 (82) 100 12/02/16 06:25 18 12/02/16 05:19 98.4 79 20 117/55 (75) 97 12/02/16 04:18 18 12/02/16 01:16 16 12/02/16 01:07 98.2 81 20 120/67 (84) 98 12/02/16 01:00 98 21 12/01/16 21:55 18 12/01/16 21:55 18 12/01/16 21:02 98.5 91 20 125/70 (88) 99 12/01/16 18:27 20 12/01/16 16:40 98.2 82 18 136/62 (86) 95 12/01/16 15:45 78 16 119/59 (79) 97 Room Air 12/01/16 15:30 80 16 124/57 (79) 96 Room Air 12/01/16 15:15 78 16 122/67 (85) 98 Room Air 12/01/16 15:00 97.9 88 16 129/71 (90) 100 12/01/16 12:07 98.1 79 18 105/61 (76) 96 12/01/16 11:52 20 Result Diagram: 11/30/16 0757 Michell Briones MD Dec 02, 2016 10:32
--- NOTE | 2016-12-02 12:37 | HHI.PR ---
Subjective Remarks complains of pain during dressing changes no fever or chills Objective Vitals Vital Signs Date Time Temp Pulse Resp B/P (MAP) Pulse Ox O2 Delivery O2 Flow Rate FiO2 12/02/16 10:25 96 21 12/02/16 09:22 16 12/02/16 08:00 97.9 72 16 122/63 (82) 100 12/02/16 06:25 18 12/02/16 05:19 98.4 79 20 117/55 (75) 97 12/02/16 04:18 18 12/02/16 01:16 16 12/02/16 01:07 98.2 81 20 120/67 (84) 98 12/02/16 01:00 98 21 12/01/16 21:55 18 12/01/16 21:55 18 12/01/16 21:02 98.5 91 20 125/70 (88) 99 12/01/16 18:27 20 12/01/16 16:40 98.2 82 18 136/62 (86) 95 12/01/16 15:45 78 16 119/59 (79) 97 Room Air 12/01/16 15:30 80 16 124/57 (79) 96 Room Air 12/01/16 15:15 78 16 122/67 (85) 98 Room Air 12/01/16 15:00 97.9 88 16 129/71 (90) 100 I/O 12/01/16 12/01/16 12/01/16 12/02/16 12/02/16 12/02/16 07:00 15:00 23:00 07:00 15:00 23:00 Intake Total 520 ml 600 ml Output Total 1400 ml 210 ml 300 ml 800 ml Balance -1400 ml 310 ml -300 ml -200 ml Intake Oral 600 ml IV Total 20 ml Other 500 ml Output Urine Total 700 ml 200 ml 300 ml 800 ml Drainage Total 700 ml Estimated Blood Loss 10 ml # Bowel Movements 1 Result Diagram: 11/30/16 0757 Imaging Last Impressions Liver Ultrasound 11/26/16 0000 Signed Impressions: Service Date/Time: Saturday, November 26, 2016 10:04 - CONCLUSION: 1. There is a single 1.4 cm hyperechoic mass in the right lobe suggestive of a hemangioma. 2. No evidence of gallstones or biliary tract obstruction. Humble Mendez MD Upper Extremity CTA 11/24/16 0000 Signed Impressions: Service Date/Time: Thursday, November 24, 2016 01:01 - CONCLUSION: 1. Occlusion of the ulnar artery approximately 5 cm distal to its origin and occlusion of the proximal radial artery associated with forearm soft tissue swelling. Findings could be related to an early compartment syndrome. Jayesh Farris MD Radius/Ulna X-Ray 11/24/16 0000 Signed Impressions: Service Date/Time: Thursday, November 24, 2016 01:30 - CONCLUSION: 1. Soft tissue swelling of the forearm. No radiopaque foreign body or acute bony abnormality. Jayesh Farris MD Hand X-Ray 11/24/16 0000 Signed Impressions: Service Date/Time: Thursday, November 24, 2016 01:30 - CONCLUSION: 1. No acute findings. No radiopaque foreign body identified. Jayesh Farris MD Objective Remarks awake and alert, oriented x 3 anicteric lungs clear regular rhythm abdomen- flat, soft, nontender extremities- Right UE/forearm- gauze dressing in place, good radial pulses, mild swelling of the fingers, bluish dicoloration of tip of middle finger and thumb LE- no edema, no calf tenderness Procedures 1. Right arm volar and dorsal fasciotomy. 2. Exploration of the vessels. 3. Wound VAC placement. A/P Problem List: (1) Compartment syndrome of right upper extremity ICD Code: T79.A11A - Traumatic compartment syndrome of right upper extremity, initial encounter Status: Acute (2) Compartment syndrome of hand ICD Code: T79.A19A - Traumatic compartment syndrome of unspecified upper extremity, initial encounter Status: Acute (3) Ischemia of hand ICD Code: I99.8 - Other disorder of circulatory system Status: Acute (4) Ischemia of digits of hand ICD Code: I99.8 - Other disorder of circulatory system Status: Acute Assessment and Plan 31-year-old male admitted secondary to acute compartment syndrome of the right forearm. Continue to follow clinically. Surgeon following. Plastic surgery will be consulted. Plastic surgery available 12/06/16. Compartment syndrome, right forearm S/P right hand fasciotomy, carpal tunnel release, deep dorsal forearm fasciotomy , deep volar forearm arm fasciotomy S/P VAC removal 12/01 - IV Dilaudid prn for pain, po pain meds prn Continue Colace 1st and 3rd digits dark/black in color - no cyanosis- warm to the touch no discoloration seems to be dependent- possible staining will continue to monitor Dr Solis rolon- plan for possible graft next week Right hand ischemia S/P fasciotomy -persistent discoloration of right middle finger Hypokalemia- resolved Monitor and replace as needed IV drug abuse - d/w him pain regimen Hepatitis C Standard precautions DVT prophylaxis SCDs Discussed with patient, Problem Qualifiers (1) Compartment syndrome of right upper extremity: Qualified Codes: T79.A11A - Traumatic compartment syndrome of right upper extremity, initial encounter (2) Compartment syndrome of hand: Qualified Codes: T79.A11A - Traumatic compartment syndrome of right upper extremity, initial encounter Jennifer Kwan MD Dec 02, 2016 12:37
--- NOTE | 2016-12-02 13:31 | PD.PLAS.PN ---
Subjective Remarks Patient stable No active bleeding Had one dressing change last night around 2 am. Showed him pics in the surgery - areas are mostly clean and a skin graft can be done Split thickness graft from Right thigh explained. Should have good take but may lose part of graft in the healing period. His muscle function will be also not changed by the skin graft - only the wounds will be healed. Future surgery may be possible to remove some of the grafts and bring more normal skin together. At present the muscles and tissues are nearly three times the size of his normal left side. The floor showcase trimmer had called me earlier this am - about possible discharge planning. I have him on schedule for skin graft tomorrow am and should be able to assess the take in 2-3 more days Possible discharge about Sunday next week should be possible. Also I am slowing down my practice and am not taking any new / insurance patients now - I will help the patient through the immediate postop period, however he will need to be referred to another plastic surgeon in future for any additional surgery etc. He can also be managed at the [facility] and the [facility] in the mean time as he does not have any insurance coverage. Patient understands this and is agreeable to have me go ahead with the skin graft surgery while he is still here. Vital Signs Date Time Temp Pulse Resp B/P (MAP) Pulse Ox O2 Delivery O2 Flow Rate FiO2 12/02/16 12:00 98.3 84 16 109/57 (74) 100 12/02/16 10:25 96 21 12/02/16 09:22 16 12/02/16 08:00 97.9 72 16 122/63 (82) 100 12/02/16 06:25 18 12/02/16 05:19 98.4 79 20 117/55 (75) 97 12/02/16 04:18 18 12/02/16 01:16 16 12/02/16 01:07 98.2 81 20 120/67 (84) 98 12/02/16 01:00 98 21 12/01/16 21:55 18 12/01/16 21:55 18 12/01/16 21:02 98.5 91 20 125/70 (88) 99 12/01/16 18:27 20 12/01/16 16:40 98.2 82 18 136/62 (86) 95 12/01/16 15:45 78 16 119/59 (79) 97 Room Air 12/01/16 15:30 80 16 124/57 (79) 96 Room Air 12/01/16 15:15 78 16 122/67 (85) 98 Room Air 12/01/16 15:00 97.9 88 16 129/71 (90) 100 I/O 12/01/16 12/01/16 12/01/16 12/02/16 12/02/16 12/02/16 07:00 15:00 23:00 07:00 15:00 23:00 Intake Total 520 ml 600 ml Output Total 1400 ml 210 ml 300 ml 800 ml Balance -1400 ml 310 ml -300 ml -200 ml Intake Oral 600 ml IV Total 20 ml Other 500 ml Output Urine Total 700 ml 200 ml 300 ml 800 ml Drainage Total 700 ml Estimated Blood Loss 10 ml # Bowel Movements 1 Result Diagram: 11/30/16 0757 Alverto Ely MD Dec 02, 2016 13:31
[2016-12-02] MEDS ORDERED: METOPROLOL TARTRATE 25 MG TAB PO PRN (18:45)
[2016-12-02] MEDS ORDERED: POVIDONE IODINE 5% (ANTISEPSIS KIT) 4 APPLICATIONS EACH NARE PRN (18:45)
[2016-12-02] MEDS ORDERED: CHLORHEXIDINE GLUCONATE 2 % 1 PACK (2 CLOTHS) TOPICAL PRN (18:45)
[2016-12-02] MEDS ORDERED: INSULIN HUMAN REGULAR 1,000 UNITS/10 ML VIAL SQ PRN (18:45)
[2016-12-02] MEDS ORDERED: LACTATED RINGER'S 1000 ML IV PRN (18:45)
[2016-12-02] MEDS ORDERED: SODIUM CHLORID 0.9% 500 ML IV PRN (18:45)
[2016-12-02] MEDS: ENOXAPARIN SODIUM 40 MG/0.4 ML SYRINGE SQ SCH (22:02)
[2016-12-03] VITALS (7 sets, daily range): BP systolic 118–142; BP diastolic 63–87; PULSE 69–81; RESP 17–20; TEMP 97.2–98; O2SAT 97–100
[2016-12-03] MEDS: HYDROmorphone HCL PF 1 MG/ML VIAL IV PUSH PRN (02:02)
[2016-12-03] MEDS: oxyCODONE/ACETAMINOPHEN 10 MG/325 MG TAB PO PRN ×4 (04:03→21:24)
[2016-12-03] MEDS ORDERED: HYDROmorphone HCL PF 0.5 MG/0.5 ML SYRINGE IV PUSH PRN (06:00)
[2016-12-03] MEDS: HYDROmorphone HCL PF 0.5 MG/0.5 ML SYRINGE IV PUSH PRN ×4 (06:36→23:16)
[2016-12-03] MEDS: DOCUSATE SODIUM 50 MG/SENNA 8.6 MG TAB PO SCH ×2 (08:41→21:15)
[2016-12-03] MEDS: SODIUM CHLORIDE 0.9% FLUSH 10 ML FLUSH IV FLUSH SCH ×2 (08:41→21:00)
[2016-12-03 10:36] LABS: HEMATOCRIT 31.9 % (39.0-51.0); MEAN CELL VOLUME 81.5 FL (80.0-100.0); MEAN CORPUSCULAR HEMOGLOBIN 26.7 PG (27.0-34.0); MEAN CORPUSCULAR HGB CONC 32.7 % (32.0-36.0); PLATELET COUNT 444 TH/MM3 (150-450); RED BLOOD COUNT 3.92 MIL/MM3 (4.50-5.90); RED CELL DISTRIBUTION WIDTH 17.8 % (11.6-17.2); REVIEW FLAG FINAL; WHITE BLOOD COUNT 6.9 TH/MM3 (4.0-11.0)
--- NOTE | 2016-12-03 10:46 | HHI.PR ---
Subjective Remarks looking forward to going for surgery today pain controlled grossly feels my cold hands- intact Objective Vitals Vital Signs Date Time Temp Pulse Resp B/P (MAP) Pulse Ox O2 Delivery O2 Flow Rate FiO2 12/03/16 09:16 99 12/03/16 08:00 97.7 69 17 124/73 (90) 99 12/03/16 05:23 98.0 80 20 120/72 (88) 99 12/03/16 01:02 97.2 78 20 118/69 (85) 97 12/02/16 20:55 98.1 81 20 129/77 (94) 99 12/02/16 19:20 98 21 12/02/16 16:00 98.3 90 16 110/64 (79) 100 12/02/16 12:00 98.3 84 16 109/57 (74) 100 I/O 12/02/16 12/02/16 12/02/16 12/03/16 12/03/16 12/03/16 07:00 15:00 23:00 07:00 15:00 23:00 Intake Total 600 ml 1440 ml Output Total 800 ml 500 ml 601 ml 800 ml Balance -200 ml 940 ml -601 ml -800 ml Intake Oral 600 ml 1440 ml Output Urine Total 800 ml 500 ml 600 ml 800 ml Stool Total 1 ml # Bowel Movements 0 Result Diagram: 12/03/16 1016 Imaging Last Impressions Liver Ultrasound 11/26/16 0000 Signed Impressions: Service Date/Time: Saturday, November 26, 2016 10:04 - CONCLUSION: 1. There is a single 1.4 cm hyperechoic mass in the right lobe suggestive of a hemangioma. 2. No evidence of gallstones or biliary tract obstruction. Humble Mendez MD Upper Extremity CTA 11/24/16 0000 Signed Impressions: Service Date/Time: Thursday, November 24, 2016 01:01 - CONCLUSION: 1. Occlusion of the ulnar artery approximately 5 cm distal to its origin and occlusion of the proximal radial artery associated with forearm soft tissue swelling. Findings could be related to an early compartment syndrome. Jayesh Farris MD Radius/Ulna X-Ray 11/24/16 0000 Signed Impressions: Service Date/Time: Thursday, November 24, 2016 01:30 - CONCLUSION: 1. Soft tissue swelling of the forearm. No radiopaque foreign body or acute bony abnormality. Jayesh Farris MD Hand X-Ray 11/24/16 0000 Signed Impressions: Service Date/Time: Thursday, November 24, 2016 01:30 - CONCLUSION: 1. No acute findings. No radiopaque foreign body identified. Jayesh Farris MD Objective Remarks awake and alert, oriented x 3 lungs clear regular rhythm abdomen- flat, soft, nontender extremities- Right UE/forearm- gauze dressing in place, good radial pulses, hand warm, dry bluish discoloration of tip of right thumb and middle finger sensory grossly intact- LE- no edema, no calf tenderness Procedures 1. Right arm volar and dorsal fasciotomy. 2. Exploration of the vessels. 3. Wound VAC placement. A/P Problem List: (1) Compartment syndrome of right upper extremity ICD Code: T79.A11A - Traumatic compartment syndrome of right upper extremity, initial encounter Status: Acute (2) Compartment syndrome of hand ICD Code: T79.A19A - Traumatic compartment syndrome of unspecified upper extremity, initial encounter Status: Acute (3) Ischemia of hand ICD Code: I99.8 - Other disorder of circulatory system Status: Acute (4) Ischemia of digits of hand ICD Code: I99.8 - Other disorder of circulatory system Status: Acute Assessment and Plan 31-year-old male admitted secondary to acute compartment syndrome of the right forearm. Continue to follow clinically. Surgeon following. Plastic surgery will be consulted. Plastic surgery available 12/06/16. Compartment syndrome, right forearm S/P right hand fasciotomy, carpal tunnel release, deep dorsal forearm fasciotomy , deep volar forearm arm fasciotomy S/P VAC removal 12/01 - IV Dilaudid prn for pain, po pain meds prn Continue Colace 1st and 3rd digits dark/black in color - no cyanosis- warm to the touch no discoloration seems to be dependent- possible staining will continue to monitor Dr Ely ff- going for graft surgery this am Right hand ischemia continue to monitor- discoloration of tip of middle finger and right thumb Hypokalemia- resolved Monitor and replace as needed IV drug abuse - d/w him pain regimen 12/01 Hepatitis C Standard precautions DVT prophylaxis SCDs Discussed with patient, Problem Qualifiers (1) Compartment syndrome of right upper extremity: Qualified Codes: T79.A11A - Traumatic compartment syndrome of right upper extremity, initial encounter (2) Compartment syndrome of hand: Qualified Codes: T79.A11A - Traumatic compartment syndrome of right upper extremity, initial encounter Jennifer Kwan MD Dec 03, 2016 10:46
[2016-12-03 10:55] LABS: BICARBONATE 29.8 MEQ/L (21.0-32.0)
[2016-12-03] MEDS ORDERED: PROPOFOL 200 MG/20 ML AMP IV ONE (12:00)
[2016-12-03] MEDS ORDERED: ONDANSETRON HCL 4 MG/2 ML VIAL IV PUSH ONE (12:00)
[2016-12-03] MEDS ORDERED: SUCCINYLCHOLINE CHLORIDE 100 MG/5 ML SYRINGE IV PUSH ONE (12:00)
[2016-12-03] MEDS ORDERED: MIDAZOLAM HCL 2 MG/2 ML VIAL IV ONE (12:00)
[2016-12-03] MEDS ORDERED: DEXAMETHASONE SOD PHOS 4 MG/ML VIAL IV ONE (12:00)
[2016-12-03] MEDS ORDERED: LIDOCAINE HCL 1% PF 5 ML AMPULE OTHER ONE (12:00)
[2016-12-03] MEDS ORDERED: PHENYLEPH/NS 1000 MCG/10 ML SYR IV ONE (12:00)
[2016-12-03] MEDS ORDERED: MINERAL OIL 10 ML VIAL ONE (13:36)
[2016-12-03] MEDS ORDERED: LIDOCAINE 1%/EPINEPHrine 1:100,000 SOLN 50 ML VIAL ONE (13:36)
[2016-12-03] MEDS ORDERED: ceFAZolin INJ 1,000 MG VIAL ONE (13:45)
[2016-12-03] MEDS ORDERED: GENTAMICIN SULFATE 80 MG/2 ML VIAL ONE (14:22)
[2016-12-03] MEDS ORDERED: KETAMINE HCL 500 MG/5 ML VIAL ONE (14:38)
[2016-12-03] MEDS ORDERED: HYDROmorphone HCL PF 2 MG/ML VIAL ONE (14:38)
[2016-12-03] MEDS ORDERED: *MEPERIDINE 25 MG INJ VIAL PERIprocedural Use ONLY ONE (15:34)
[2016-12-03] MEDS ORDERED: *morphine SULFATE 8 MG/ML PERIprocedure ONLY ONE ×3 (15:40→15:55)
[2016-12-03] MEDS ORDERED: ACETAMINOPHEN 1000 MG/100 ML 100 ML IV ONE (15:43)
[2016-12-03] MEDS ORDERED: DO NOT ADM ANY ANTICOAGULANT DRUGS PRN (16:00)
[2016-12-03] MEDS ORDERED: *HYDROmorphone PF 1 MG VIAL PERIprocedural Use ONLY ONE (16:05)
[2016-12-03] MEDS: LACTATED RINGER'S 1000 ML INJ 1,000 ML IV SCH (16:10)
[2016-12-03] MEDS: ENOXAPARIN SODIUM 40 MG/0.4 ML SYRINGE SQ SCH (19:49)
[2016-12-03] MEDS ORDERED: HYDROmorphone HCL PF 1 MG/ML VIAL IV PUSH ONE (20:45)
[2016-12-03] MEDS: ceFAZolin 2 GM PREMIX 50 ML IV SCH (21:15)
[2016-12-03] MEDS ORDERED: HYDROmorphone HCL PF 2 MG/ML VIAL IV PUSH ONE (21:15)
[2016-12-04] VITALS (7 sets, daily range): BP systolic 108–128; BP diastolic 57–77; PULSE 68–87; RESP 18–20; TEMP 97.3–98.3; O2SAT 97–99
[2016-12-04] MEDS: oxyCODONE/ACETAMINOPHEN 10 MG/325 MG TAB PO PRN ×6 (01:56→21:54)
[2016-12-04] MEDS: LACTATED RINGER'S 1000 ML INJ 1,000 ML IV SCH ×3 (02:05→20:06)
[2016-12-04] MEDS: HYDROmorphone HCL PF 0.5 MG/0.5 ML SYRINGE IV PUSH PRN ×5 (02:57→20:07)
[2016-12-04] MEDS: ceFAZolin 2 GM PREMIX 50 ML IV SCH ×3 (05:58→20:06)
[2016-12-04] MEDS: SODIUM CHLORIDE 0.9% FLUSH 10 ML FLUSH IV FLUSH SCH ×2 (09:00→20:06)
[2016-12-04] MEDS: DOCUSATE SODIUM 50 MG/SENNA 8.6 MG TAB PO SCH ×2 (09:49→20:06)
--- NOTE | 2016-12-04 14:55 | HHI.PR ---
Subjective Remarks complains of pain from the graft site- right thigh good po Objective Vitals Vital Signs Date Time Temp Pulse Resp B/P (MAP) Pulse Ox O2 Delivery O2 Flow Rate FiO2 12/04/16 12:01 98.2 80 20 121/67 (85) 99 12/04/16 09:30 99 12/04/16 08:05 98.3 68 20 117/64 (81) 99 12/04/16 04:00 97.9 68 18 108/57 (74) 97 12/04/16 00:00 97.3 77 18 113/60 (77) 98 12/03/16 20:00 97.6 76 18 123/63 (83) 98 12/03/16 17:02 97.5 81 17 142/87 (105) 100 12/03/16 17:00 12/03/16 16:45 72 16 120/79 (93) 99 Room Air 12/03/16 16:30 74 16 135/79 (97) 100 Room Air 12/03/16 16:15 74 16 137/81 (99) 97 Room Air 12/03/16 16:00 80 16 138/82 (100) 99 Room Air 12/03/16 15:45 74 16 128/87 (101) 100 Room Air 12/03/16 15:33 96.8 78 16 128/75 (92) 100 I/O 12/03/16 12/03/16 12/03/16 12/04/16 12/04/16 12/04/16 07:00 15:00 23:00 07:00 15:00 23:00 Intake Total 1011 ml 1530 ml Output Total 800 ml 725 ml 50 ml Balance -800 ml -725 ml 961 ml 1530 ml Intake Oral 480 ml IV Total 211 ml 1050 ml Other 800 ml Output Urine Total 800 ml 725 ml Estimated Blood Loss 50 ml # Voids 2 3 # Bowel Movements 0 Result Diagram: 12/03/16 1016 12/03/16 1016 Imaging Last Impressions Liver Ultrasound 11/26/16 0000 Signed Impressions: Service Date/Time: Saturday, November 26, 2016 10:04 - CONCLUSION: 1. There is a single 1.4 cm hyperechoic mass in the right lobe suggestive of a hemangioma. 2. No evidence of gallstones or biliary tract obstruction. Humble Mendez MD Upper Extremity CTA 11/24/16 0000 Signed Impressions: Service Date/Time: Thursday, November 24, 2016 01:01 - CONCLUSION: 1. Occlusion of the ulnar artery approximately 5 cm distal to its origin and occlusion of the proximal radial artery associated with forearm soft tissue swelling. Findings could be related to an early compartment syndrome. Jayesh Farris MD Radius/Ulna X-Ray 11/24/16 0000 Signed Impressions: Service Date/Time: Thursday, November 24, 2016 01:30 - CONCLUSION: 1. Soft tissue swelling of the forearm. No radiopaque foreign body or acute bony abnormality. Jayesh Farris MD Hand X-Ray 11/24/16 0000 Signed Impressions: Service Date/Time: Thursday, November 24, 2016 01:30 - CONCLUSION: 1. No acute findings. No radiopaque foreign body identified. Jayesh Farris MD Objective Remarks awake and alert, oriented x 3 anicteric lungs clear regular rhythm abdomen- flat, soft, nontender extremities- right UE- post op dressings in place right thigh- post op dressing in place LE , no calf tenderness, moves both feet spontaenously Procedures 1. Right arm volar and dorsal fasciotomy. 2. Exploration of the vessels. 3. Wound VAC placement. 12/03- split thickness skin graft right thigh to right UE A/P Problem List: (1) Compartment syndrome of right upper extremity ICD Code: T79.A11A - Traumatic compartment syndrome of right upper extremity, initial encounter Status: Acute (2) Compartment syndrome of hand ICD Code: T79.A19A - Traumatic compartment syndrome of unspecified upper extremity, initial encounter Status: Acute (3) Ischemia of hand ICD Code: I99.8 - Other disorder of circulatory system Status: Acute (4) Ischemia of digits of hand ICD Code: I99.8 - Other disorder of circulatory system Status: Acute Assessment and Plan 31-year-old male admitted secondary to acute compartment syndrome of the right forearm. Continue to follow clinically. Surgeon following. Plastic surgery will be consulted. Plastic surgery available 12/06/16. Compartment syndrome, right forearm S/P split thickness skin graft from right thigh to right UE- 12/03 S/P right hand fasciotomy, carpal tunnel release, deep dorsal forearm fasciotomy , deep volar forearm arm fasciotomy S/P VAC removal 12/01 - IV Dilaudid prn for pain, po pain meds prn Continue Colace 1st and 3rd digits dark/black in color - no cyanosis- warm to the touch no discoloration seems to be dependent- possible staining will continue to monitor Dr Solis rolon- started on Cefazolin post op Right hand ischemia continue to monitor- discoloration of tip of middle finger and right thumb Hypokalemia- resolved Monitor and replace as needed IV drug abuse - d/w him pain regimen 12/01 Hepatitis C Standard precautions DVT prophylaxis SCDs/TEDs Problem Qualifiers (1) Compartment syndrome of right upper extremity: Qualified Codes: T79.A11A - Traumatic compartment syndrome of right upper extremity, initial encounter (2) Compartment syndrome of hand: Qualified Codes: T79.A11A - Traumatic compartment syndrome of right upper extremity, initial encounter Jennifer Kwan MD Dec 04, 2016 14:55
[2016-12-04] MEDS: ENOXAPARIN SODIUM 40 MG/0.4 ML SYRINGE SQ SCH (20:06)
[2016-12-05] VITALS (7 sets, daily range): BP systolic 116–132; BP diastolic 74–83; PULSE 68–90; RESP 19–20; TEMP 97.5–98.4; O2SAT 97–100
[2016-12-05] MEDS: HYDROmorphone HCL PF 0.5 MG/0.5 ML SYRINGE IV PUSH PRN ×6 (00:17→20:58)
[2016-12-05] MEDS: oxyCODONE/ACETAMINOPHEN 10 MG/325 MG TAB PO PRN ×6 (02:33→22:06)
[2016-12-05] MEDS: ceFAZolin 2 GM PREMIX 50 ML IV SCH ×3 (05:57→21:04)
[2016-12-05] MEDS: SODIUM CHLORIDE 0.9% FLUSH 10 ML FLUSH IV FLUSH SCH ×2 (08:03→21:00)
[2016-12-05] MEDS: DOCUSATE SODIUM 50 MG/SENNA 8.6 MG TAB PO SCH ×2 (08:03→21:02)
[2016-12-05] MEDS: LACTATED RINGER'S 1000 ML INJ 1,000 ML IV SCH (10:17)
--- NOTE | 2016-12-05 10:29 | HHI.PR ---
Subjective Remarks pain controlled + good BM last evening Objective Vitals Vital Signs Date Time Temp Pulse Resp B/P (MAP) Pulse Ox O2 Delivery O2 Flow Rate FiO2 12/05/16 07:53 98.1 79 19 120/78 (92) 97 12/05/16 05:01 97.5 68 20 119/75 (90) 98 12/05/16 00:57 97.9 76 20 116/80 (92) 99 12/04/16 21:09 97.8 87 20 127/77 (94) 99 12/04/16 16:26 98.0 82 20 128/75 (92) 99 12/04/16 12:01 98.2 80 20 121/67 (85) 99 I/O 12/04/16 12/04/16 12/04/16 12/05/16 12/05/16 12/05/16 07:00 15:00 23:00 07:00 15:00 23:00 Intake Total 1530 ml 770 ml Output Total 950 ml 1400 ml Balance 1530 ml -180 ml -1400 ml Intake Oral 480 ml 720 ml IV Total 1050 ml 50 ml Output Urine Total 950 ml 1400 ml # Voids 3 # Bowel Movements 1 1 Result Diagram: 12/03/16 1016 12/03/16 1016 Imaging Last Impressions Liver Ultrasound 11/26/16 0000 Signed Impressions: Service Date/Time: Saturday, November 26, 2016 10:04 - CONCLUSION: 1. There is a single 1.4 cm hyperechoic mass in the right lobe suggestive of a hemangioma. 2. No evidence of gallstones or biliary tract obstruction. Humble Mendez MD Upper Extremity CTA 11/24/16 0000 Signed Impressions: Service Date/Time: Thursday, November 24, 2016 01:01 - CONCLUSION: 1. Occlusion of the ulnar artery approximately 5 cm distal to its origin and occlusion of the proximal radial artery associated with forearm soft tissue swelling. Findings could be related to an early compartment syndrome. Jayesh Farris MD Radius/Ulna X-Ray 11/24/16 0000 Signed Impressions: Service Date/Time: Thursday, November 24, 2016 01:30 - CONCLUSION: 1. Soft tissue swelling of the forearm. No radiopaque foreign body or acute bony abnormality. Jayesh Farris MD Hand X-Ray 11/24/16 0000 Signed Impressions: Service Date/Time: Thursday, November 24, 2016 01:30 - CONCLUSION: 1. No acute findings. No radiopaque foreign body identified. Jayesh Farris MD Objective Remarks awake and alert, oriented x 3 anicteric lungs clear regular rhythm abdomen- flat, soft, nontender extremities- right UE- post op dressings in place- tip of thumb and 3rd digit- dry gangrene right thigh- post op dressing in place left LE , no calf tenderness, moves both feet spontaneously Procedures 1. Right arm volar and dorsal fasciotomy. 2. Exploration of the vessels. 3. Wound VAC placement. 12/03- split thickness skin graft right thigh to right UE A/P Problem List: (1) Compartment syndrome of right upper extremity ICD Code: T79.A11A - Traumatic compartment syndrome of right upper extremity, initial encounter Status: Acute (2) Compartment syndrome of hand ICD Code: T79.A19A - Traumatic compartment syndrome of unspecified upper extremity, initial encounter Status: Acute (3) Ischemia of hand ICD Code: I99.8 - Other disorder of circulatory system Status: Acute (4) Ischemia of digits of hand ICD Code: I99.8 - Other disorder of circulatory system Status: Acute Assessment and Plan 31-year-old male admitted secondary to acute compartment syndrome of the right forearm. Continue to follow clinically. Surgeon following. Plastic surgery will be consulted. Plastic surgery available 12/06/16. Compartment syndrome, right forearm S/P split thickness skin graft from right thigh to right UE- 12/03 S/P right hand fasciotomy, carpal tunnel release, deep dorsal forearm fasciotomy , deep volar forearm arm fasciotomy S/P VAC removal 12/01 - IV Dilaudid prn for pain, po pain meds prn Continue Colace 1st and 3rd digits dark/black in color - no cyanosis- warm to the touch no discoloration seems to be dependent- Dr Ely ff- started on Cefazolin post op Right hand ischemia- - dry gangrene discoloration of tip of right middle finger and right thumb Hypokalemia- resolved Monitor and replace as needed IV drug abuse - d/w him pain regimen 12/01 Hepatitis C Standard precautions DVT prophylaxis SCDs/TEDs Problem Qualifiers (1) Compartment syndrome of right upper extremity: Qualified Codes: T79.A11A - Traumatic compartment syndrome of right upper extremity, initial encounter (2) Compartment syndrome of hand: Qualified Codes: T79.A11A - Traumatic compartment syndrome of right upper extremity, initial encounter Jennifer Kwan MD Dec 05, 2016 10:29
--- NOTE | 2016-12-05 11:44 | MP ---
cc: MARIA ELENA ELY M.D. DATE OF SURGERY 12/03/2016 PREOPERATIVE DIAGNOSIS Multiple open wounds right forearm, right hand [id number] + centimeter squared. POSTOPERATIVE DIAGNOSIS Multiple open wounds right forearm, right hand approximately 350+ centimeter squared. OPERATION Debridement and partial closure of the right forearm wound with split-thickness skin graft from the right thigh to right forearm wall volar and dorsal aspect and right hand dorsal aspect. SURGEON Dr. Ely ANESTHESIA General INDICATIONS This is a 31-year-old white male with a compartment syndrome involving the right forearm subsequent to IV drug abuse. He has undergone multiple surgeries previously by general surgery and hand surgery and finally has open wounds with a wound Vac that was removed the day before yesterday by myself and the muscles were cleaned. He does have an additional area of necrotic tissues on both sides since yesterday. The patient was explained split-thickness skin grafting from the thigh area and overall wound closure to be expected. There may be future surgeries in case of graft failure or infection, etc. His function will not change with the skin graft and for that he will have to continue with the appropriate specialties for further followup. PROCEDURE The patient was brought to the operating room, was given spine position, anesthesia was started. Prep and drape was done. IV antibiotics were started. Time-out was called and completed. The wounds were checked one more time. There is a strip of necrotic tissue on the dorsal aspect on the ulnar side that was excised. Also a portion of the forearm muscle on the volar aspect ulnar side were also clearly nonviable and these were removed as well. The remaining tissues were copiously scrubbed with a Betadine scrub brush and soap solution and irrigated clean. Hemostasis was completed. The skin flaps were advanced over the exposed muscles with 3-0 chromic sutures passing the sutures through muscle bellies as well to close up the space under the flaps as much as possible. The remaining open wounds on the forearm volar dorsal aspect and dorsal hand were then skin grafted using split-thickness skin graft from the right thigh. Multiple strips of graft were needed meshed to 1.5 ratio and applied to all the open wounds with josefina. A few josefina were needed also to take down some of the loose parts of the graft about cone cavities including some use of chromic sutures as well. All the areas were covered with Xeroform with gentamicin soaked Telfa packs and sterile dressing was applied. The donor site on the right thigh was injected with lidocaine 1% with epinephrine diluted solution and saline and was again tacked in three layers. The patient remained stable. Intraoperative blood loss approximately 50 cc during the debridement process. No active major bleeders. No complications. signed, not fully reviewed MD MONIE Silva/CARISSA /7:33 PM /11:29 AM MTDLaurent
[2016-12-05] MEDS: ENOXAPARIN SODIUM 40 MG/0.4 ML SYRINGE SQ SCH (21:02)
[2016-12-06] VITALS: BP 119/66; PULSE 81; RESP 20; TEMP 98.3; O2SAT 97
[2016-12-06] MEDS: LACTATED RINGER'S 1000 ML INJ 1,000 ML IV SCH ×3 (00:22→21:30)
[2016-12-06] MEDS: HYDROmorphone HCL PF 0.5 MG/0.5 ML SYRINGE IV PUSH PRN ×7 (00:48→23:03)
[2016-12-06] MEDS: oxyCODONE/ACETAMINOPHEN 10 MG/325 MG TAB PO PRN ×5 (02:41→20:30)
[2016-12-06 04:00] VITALS: BP 118/68; PULSE 77; RESP 20; TEMP 97.9; O2SAT 98
[2016-12-06] MEDS: ceFAZolin 2 GM PREMIX 50 ML IV SCH ×3 (05:33→21:31)
[2016-12-06] MEDS: DOCUSATE SODIUM 50 MG/SENNA 8.6 MG TAB PO SCH ×2 (07:56→20:30)
[2016-12-06 08:00] VITALS: BP 122/79; PULSE 82; RESP 19; TEMP 97.4; O2SAT 97
[2016-12-06] MEDS: SODIUM CHLORIDE 0.9% FLUSH 10 ML FLUSH IV FLUSH SCH ×2 (09:00→21:30)
[2016-12-06 09:49] LABS: HEMATOCRIT 30.5 % (39.0-51.0); MEAN CELL VOLUME 82.5 FL (80.0-100.0); MEAN CORPUSCULAR HEMOGLOBIN 27.8 PG (27.0-34.0); MEAN CORPUSCULAR HGB CONC 33.7 % (32.0-36.0); PLATELET COUNT 459 TH/MM3 (150-450); RED CELL DISTRIBUTION WIDTH 17.9 % (11.6-17.2); REVIEW FLAG FINAL; WHITE BLOOD COUNT 6.2 TH/MM3 (4.0-11.0)
--- NOTE | 2016-12-06 11:34 | HHI.PR ---
Subjective Remarks awake and alert minimal post op pain Objective Vitals Vital Signs Date Time Temp Pulse Resp B/P (MAP) Pulse Ox O2 Delivery O2 Flow Rate FiO2 12/06/16 08:00 97.4 82 19 122/79 (93) 97 12/06/16 04:00 97.9 77 20 118/68 (85) 98 12/06/16 00:00 98.3 81 20 119/66 (83) 97 12/05/16 20:00 98.4 76 20 132/83 (99) 100 12/05/16 18:25 99 21 12/05/16 17:37 98.2 90 20 124/74 (91) 99 12/05/16 13:17 98.1 80 20 128/80 (96) 100 I/O 12/05/16 12/05/16 12/05/16 12/06/16 12/06/16 12/06/16 07:00 15:00 23:00 07:00 15:00 23:00 Intake Total 1748 ml Output Total 1400 ml 800 ml 450 ml 500 ml Balance -1400 ml -800 ml 1298 ml -500 ml Intake Oral 480 ml IV Total 1268 ml Output Urine Total 1400 ml 800 ml 450 ml 500 ml # Voids 2 # Bowel Movements 1 1 0 Result Diagram: 12/06/16 0824 12/03/16 1016 Imaging Last Impressions Liver Ultrasound 11/26/16 0000 Signed Impressions: Service Date/Time: Saturday, November 26, 2016 10:04 - CONCLUSION: 1. There is a single 1.4 cm hyperechoic mass in the right lobe suggestive of a hemangioma. 2. No evidence of gallstones or biliary tract obstruction. Humble Mendez MD Upper Extremity CTA 11/24/16 0000 Signed Impressions: Service Date/Time: Thursday, November 24, 2016 01:01 - CONCLUSION: 1. Occlusion of the ulnar artery approximately 5 cm distal to its origin and occlusion of the proximal radial artery associated with forearm soft tissue swelling. Findings could be related to an early compartment syndrome. Jayesh Farris MD Radius/Ulna X-Ray 11/24/16 0000 Signed Impressions: Service Date/Time: Thursday, November 24, 2016 01:30 - CONCLUSION: 1. Soft tissue swelling of the forearm. No radiopaque foreign body or acute bony abnormality. Jayesh Farris MD Hand X-Ray 11/24/16 0000 Signed Impressions: Service Date/Time: Thursday, November 24, 2016 01:30 - CONCLUSION: 1. No acute findings. No radiopaque foreign body identified. Jayesh Farris MD Objective Remarks awake and alert, oriented x 3 anicteric lungs clear regular rhythm abdomen- flat, soft, nontender extremities- right UE- some swelling, post op dressings in place- tip of thumb and 3rd digit- dry gangrene right thigh- post op dressing in place left LE , no calf tenderness, moves both feet spontaneously Procedures 1. Right arm volar and dorsal fasciotomy. 2. Exploration of the vessels. 3. Wound VAC placement. 12/03- split thickness skin graft right thigh to right UE A/P Problem List: (1) Compartment syndrome of right upper extremity ICD Code: T79.A11A - Traumatic compartment syndrome of right upper extremity, initial encounter Status: Acute (2) Compartment syndrome of hand ICD Code: T79.A19A - Traumatic compartment syndrome of unspecified upper extremity, initial encounter Status: Acute (3) Ischemia of hand ICD Code: I99.8 - Other disorder of circulatory system Status: Acute (4) Ischemia of digits of hand ICD Code: I99.8 - Other disorder of circulatory system Status: Acute Assessment and Plan 31-year-old male admitted secondary to acute compartment syndrome of the right forearm. Continue to follow clinically. Surgeon following. Plastic surgery will be consulted. Plastic surgery available 12/06/16. Compartment syndrome, right forearm S/P split thickness skin graft from right thigh to right UE- 12/03 S/P right hand fasciotomy, carpal tunnel release, deep dorsal forearm fasciotomy , deep volar forearm arm fasciotomy S/P VAC removal 12/01 - IV Dilaudid prn for pain, po pain meds prn Continue Colace Dr Solis rolon- started on Cefazolin post op Right hand ischemia- - dry gangrene discoloration of tip of right middle finger and right thumb - cVascular surgery and Dr. Kayla rolon Hypokalemia- resolved Monitor and replace as needed IV drug abuse - d/w him pain regimen 12/01 Hepatitis C Standard precautions DVT prophylaxis SCDs/TEDs Problem Qualifiers (1) Compartment syndrome of right upper extremity: Qualified Codes: T79.A11A - Traumatic compartment syndrome of right upper extremity, initial encounter (2) Compartment syndrome of hand: Qualified Codes: T79.A11A - Traumatic compartment syndrome of right upper extremity, initial encounter Jennifer Kwan MD Dec 06, 2016 11:34
[2016-12-06 12:00] VITALS: BP 127/75; PULSE 79; RESP 19; TEMP 97.8; O2SAT 99
[2016-12-06 16:00] VITALS: BP 128/76; PULSE 93; RESP 19; TEMP 98; O2SAT 99
[2016-12-06 20:00] VITALS: BP 128/78; PULSE 94; RESP 20; TEMP 97.5; O2SAT 99
[2016-12-06] MEDS: ENOXAPARIN SODIUM 40 MG/0.4 ML SYRINGE SQ SCH (20:31)
[2016-12-07] VITALS: BP 128/67; PULSE 83; RESP 20; TEMP 98.4; O2SAT 98
[2016-12-07] MEDS: oxyCODONE/ACETAMINOPHEN 10 MG/325 MG TAB PO PRN ×6 (00:59→21:08)
--- NOTE | 2016-12-07 01:03 | PD.ORT.PN ---
Objective Vitals Vital Signs Date Time Temp Pulse Resp B/P (MAP) Pulse Ox O2 Delivery O2 Flow Rate FiO2 12/06/16 20:00 97.5 94 20 128/78 (95) 99 12/06/16 16:00 98.0 93 19 128/76 (93) 99 12/06/16 12:00 97.8 79 19 127/75 (92) 99 12/06/16 08:00 97.4 82 19 122/79 (93) 97 12/06/16 04:00 97.9 77 20 118/68 (85) 98 I/O 12/06/16 12/06/16 12/06/16 12/07/16 12/07/16 12/07/16 07:00 15:00 23:00 07:00 15:00 23:00 Intake Total 50 ml 2098 ml Output Total 500 ml 700 ml Balance -500 ml 50 ml 1398 ml IV Total 50 ml 2098 ml Output Urine Total 500 ml 700 ml # Bowel Movements 0 Result Diagram: 12/06/16 0824 12/03/16 1016 Imaging Last 24 hours Impressions Upper Extremity CTA 11/24/16 0000 Signed Impressions: Service Date/Time: Thursday, November 24, 2016 01:01 - CONCLUSION: 1. Occlusion of the ulnar artery approximately 5 cm distal to its origin and occlusion of the proximal radial artery associated with forearm soft tissue swelling. Findings could be related to an early compartment syndrome. Jayesh Farris MD Radius/Ulna X-Ray 11/24/16 0000 Signed Impressions: Service Date/Time: Thursday, November 24, 2016 01:30 - CONCLUSION: 1. Soft tissue swelling of the forearm. No radiopaque foreign body or acute bony abnormality. Jayesh Farris MD Hand X-Ray 11/24/16 0000 Signed Impressions: Service Date/Time: Thursday, November 24, 2016 01:30 - CONCLUSION: 1. No acute findings. No radiopaque foreign body identified. Jayesh Farris MD Assessment & Plan Assessment and Plan 31yM s/p forearm fasciotomies & VAC Dr Hardwick of vascular surgery, s/p dorsal and volar deep forearm fasciotomies, carpal tunnel release, hand fasciotomies, VAC placement, now s/p skin graft by plastic surgery -saw in note consider hand consult for gangrene. vascular surgery should be following vascular supply to hand and subsequent treatment -hand surgery followup Kayla Isaacs MD Dec 07, 2016 01:03
[2016-12-07] MEDS: HYDROmorphone HCL PF 0.5 MG/0.5 ML SYRINGE IV PUSH PRN ×5 (03:04→21:09)
[2016-12-07 04:00] VITALS: BP 119/70; PULSE 85; RESP 20; TEMP 97.6; O2SAT 98
[2016-12-07] MEDS: ceFAZolin 2 GM PREMIX 50 ML IV SCH ×3 (05:10→21:12)
[2016-12-07 08:46] VITALS: BP 116/69; PULSE 78; RESP 16; TEMP 97.9; O2SAT 98
[2016-12-07] MEDS: DOCUSATE SODIUM 50 MG/SENNA 8.6 MG TAB PO SCH ×2 (09:09→21:08)
[2016-12-07] MEDS: SODIUM CHLORIDE 0.9% FLUSH 10 ML FLUSH IV FLUSH SCH ×2 (09:11→21:00)
[2016-12-07] MEDS: LACTATED RINGER'S 1000 ML INJ 1,000 ML IV SCH ×2 (09:11→20:00)
--- NOTE | 2016-12-07 11:30 | HHI.PR ---
Subjective Remarks awake and alert, pain of hand up to elbow able to move fingers more- swelling slightly decrease no shoulder pain Objective Vitals Vital Signs Date Time Temp Pulse Resp B/P (MAP) Pulse Ox O2 Delivery O2 Flow Rate FiO2 12/07/16 10:21 18 12/07/16 08:46 97.9 78 16 116/69 (85) 98 12/07/16 08:00 18 12/07/16 04:00 97.6 85 20 119/70 (86) 98 12/07/16 00:00 98.4 83 20 128/67 (87) 98 12/06/16 20:00 97.5 94 20 128/78 (95) 99 12/06/16 16:00 98.0 93 19 128/76 (93) 99 12/06/16 12:00 97.8 79 19 127/75 (92) 99 I/O 12/06/16 12/06/16 12/06/16 12/07/16 12/07/16 12/07/16 07:00 15:00 23:00 07:00 15:00 23:00 Intake Total 50 ml 2098 ml 1034 ml Output Total 500 ml 700 ml 460 ml 400 ml Balance -500 ml 50 ml 1398 ml -460 ml 634 ml IV Total 50 ml 2098 ml 1034 ml Output Urine Total 500 ml 700 ml 460 ml 400 ml # Bowel Movements 0 Result Diagram: 12/06/16 0824 12/03/16 1016 Imaging Last Impressions Liver Ultrasound 11/26/16 0000 Signed Impressions: Service Date/Time: Saturday, November 26, 2016 10:04 - CONCLUSION: 1. There is a single 1.4 cm hyperechoic mass in the right lobe suggestive of a hemangioma. 2. No evidence of gallstones or biliary tract obstruction. Humble Mendez MD Upper Extremity CTA 11/24/16 0000 Signed Impressions: Service Date/Time: Thursday, November 24, 2016 01:01 - CONCLUSION: 1. Occlusion of the ulnar artery approximately 5 cm distal to its origin and occlusion of the proximal radial artery associated with forearm soft tissue swelling. Findings could be related to an early compartment syndrome. Jayesh Farris MD Radius/Ulna X-Ray 11/24/16 0000 Signed Impressions: Service Date/Time: Thursday, November 24, 2016 01:30 - CONCLUSION: 1. Soft tissue swelling of the forearm. No radiopaque foreign body or acute bony abnormality. Jayesh Farris MD Hand X-Ray 11/24/16 0000 Signed Impressions: Service Date/Time: Thursday, November 24, 2016 01:30 - CONCLUSION: 1. No acute findings. No radiopaque foreign body identified. Jayesh Farris MD Objective Remarks awake and alert, oriented x 3 anicteric lungs clear regular rhythm abdomen- flat, soft, nontender extremities- right UE- post op dressings in place- tip of thumb and 3rd digit - dry gangrene digital swelling decrease able to move right shoulder with no difficulty right thigh- post op dressing in place left LE , no calf tenderness, moves both feet spontaneously Procedures 1. Right arm volar and dorsal fasciotomy. 2. Exploration of the vessels. 3. Wound VAC placement. 12/03- split thickness skin graft right thigh to right UE A/P Problem List: (1) Compartment syndrome of right upper extremity ICD Code: T79.A11A - Traumatic compartment syndrome of right upper extremity, initial encounter Status: Acute (2) Compartment syndrome of hand ICD Code: T79.A19A - Traumatic compartment syndrome of unspecified upper extremity, initial encounter Status: Acute (3) Ischemia of hand ICD Code: I99.8 - Other disorder of circulatory system Status: Acute (4) Ischemia of digits of hand ICD Code: I99.8 - Other disorder of circulatory system Status: Acute Assessment and Plan 31-year-old male admitted secondary to acute compartment syndrome of the right forearm. Continue to follow clinically. Surgeon following. Plastic surgery will be consulted. Plastic surgery available 12/06/16. Compartment syndrome, right forearm S/P split thickness skin graft from right thigh to right UE- 12/03 S/P right hand fasciotomy, carpal tunnel release, deep dorsal forearm fasciotomy , deep volar forearm arm fasciotomy S/P VAC removal 12/01 - IV Dilaudid prn for pain, po pain meds prn Continue Colace Dr Ely ff- started on Cefazolin post op - dressing orders will defer to Dr. Ely Right hand ischemia- - dry gangrene discoloration of tip of right middle finger and right thumb- stable - Vascular surgery ff Hypokalemia- resolved Monitor and replace as needed IV drug abuse - d/w him pain regimen 12/01 Hepatitis C Standard precautions DVT prophylaxis SCDs/TEDs encoruage up and ambulation Problem Qualifiers (1) Compartment syndrome of right upper extremity: Qualified Codes: T79.A11A - Traumatic compartment syndrome of right upper extremity, initial encounter (2) Compartment syndrome of hand: Qualified Codes: T79.A11A - Traumatic compartment syndrome of right upper extremity, initial encounter Jennifer Kwan MD Dec 07, 2016 11:30
[2016-12-07 12:23] VITALS: BP 118/70; PULSE 82; RESP 16; TEMP 98.2; O2SAT 99
--- NOTE | 2016-12-07 14:12 | PD.CAR.PN ---
CVT Progress Note Subjective/Hospital Course: 11/24/16 Patient is status post the fasciotomy of the right arm with retrieval of excellent proximal and distal pulses Wound VAC in place draining serous and serosanguineous fluid Patient can move available with ease has partial sensation in the hand and has excellent strong palpable and dopplerable brachial pulse and Doppler brisk radial and ulnar pulse Due to hand swelling capillary refill in fingers is still decreased but hand is warm While the swelling of the arm has decreased somewhat it'll take a long time before the arm can be closed either by a skin graft or acellular matrix followed by skin graft Hand this no more swollen than yesterday and I have called Dr. Edward the hand surgeon for patient will probably need fasciotomy of the hand which is in the domain of the in vision specialist 11/25/16 Patient is doing well at this time Excellent capillary refill of the distal fingers Patient is now status post fasciotomy of the right arm and subsequent fasciotomy of the right hand. Patient will transfer to the floor this point Eventually he will need grafting or a cell placement to the volar surface fasciotomy, while the dorsal surface fasciotomy will possibly close in the OR in the future 12/02/16 Patient doing well at this time Wound VAC has been changed and drainage is serosanguineous no signs of infection Dr. Ely's plastic surgery evaluation is greatly appreciated and when patient is ready for skin graft he can have this done He can follow-up with my office after that once he is discharged Nothing to add from general surgery at this time 12/07/16 Nothing to add from surgical vascular point Extremely grateful to for doing such a wonderful job from plastic surgery perspective The dry gangrene of the tips of the fingers will be addressed by Dr. Edward and when demarcated and surgeon can decide how to handle it Objective: Vital Signs Date Time Temp Pulse Resp B/P (MAP) Pulse Ox O2 Delivery O2 Flow Rate FiO2 12/07/16 12:31 18 12/07/16 12:23 98.2 82 16 118/70 (86) 99 12/07/16 10:21 18 12/07/16 08:46 97.9 78 16 116/69 (85) 98 12/07/16 04:00 97.6 85 20 119/70 (86) 98 12/07/16 00:00 98.4 83 20 128/67 (87) 98 12/06/16 20:00 97.5 94 20 128/78 (95) 99 12/06/16 16:00 98.0 93 19 128/76 (93) 99 Result Diagram: 12/06/16 0824 12/03/16 1016 Michell Briones MD Dec 07, 2016 14:12
[2016-12-07 16:42] VITALS: BP 110/66; PULSE 78; RESP 16; TEMP 98.1; O2SAT 97
[2016-12-07 20:30] VITALS: BP 119/72; PULSE 91; RESP 19; TEMP 97.9; O2SAT 98
[2016-12-07] MEDS: ENOXAPARIN SODIUM 40 MG/0.4 ML SYRINGE SQ SCH (21:08)
[2016-12-08 00:15] VITALS: BP 115/75; PULSE 88; RESP 19; TEMP 98.1; O2SAT 98
[2016-12-08] MEDS: HYDROmorphone HCL PF 0.5 MG/0.5 ML SYRINGE IV PUSH PRN ×6 (01:15→20:31)
[2016-12-08] MEDS: oxyCODONE/ACETAMINOPHEN 10 MG/325 MG TAB PO PRN ×5 (03:14→22:28)
[2016-12-08 04:20] VITALS: BP 119/79; PULSE 78; RESP 18; TEMP 97.7; O2SAT 98
[2016-12-08] MEDS: ceFAZolin 2 GM PREMIX 50 ML IV SCH (05:30)
[2016-12-08] MEDS: LACTATED RINGER'S 1000 ML INJ 1,000 ML IV SCH ×2 (05:32→16:00)
[2016-12-08 08:22] VITALS: BP 113/75; PULSE 80; RESP 18; TEMP 97.9; O2SAT 96
[2016-12-08] MEDS: SODIUM CHLORIDE 0.9% FLUSH 10 ML FLUSH IV FLUSH SCH ×2 (09:00→20:33)
[2016-12-08] MEDS: DOCUSATE SODIUM 50 MG/SENNA 8.6 MG TAB PO SCH ×2 (09:05→20:31)
--- NOTE | 2016-12-08 13:05 | HHI.PR ---
Subjective Remarks + BM last evening complains of the on the neck/nape area , no nausea or vomiting, no headache Objective Vitals Vital Signs Date Time Temp Pulse Resp B/P (MAP) Pulse Ox O2 Delivery O2 Flow Rate FiO2 12/08/16 08:22 97.9 80 18 113/75 (88) 96 12/08/16 04:20 97.7 78 18 119/79 (92) 98 12/08/16 00:15 98.1 88 19 115/75 (88) 98 12/07/16 20:30 97.9 91 19 119/72 (88) 98 12/07/16 17:55 18 12/07/16 16:42 98.1 78 16 110/66 (81) 97 12/07/16 15:53 18 I/O 12/07/16 12/07/16 12/07/16 12/08/16 12/08/16 12/08/16 07:00 15:00 23:00 07:00 15:00 23:00 Intake Total 1084 ml 1955 ml 750 ml Output Total 460 ml 400 ml 2100 ml 800 ml Balance -460 ml 684 ml -145 ml -50 ml Intake Oral 1610 ml 750 ml IV Total 1084 ml 345 ml Output Urine Total 460 ml 400 ml 2100 ml 800 ml # Bowel Movements 1 1 Result Diagram: 12/06/16 0824 Imaging Last Impressions Liver Ultrasound 11/26/16 0000 Signed Impressions: Service Date/Time: Saturday, November 26, 2016 10:04 - CONCLUSION: 1. There is a single 1.4 cm hyperechoic mass in the right lobe suggestive of a hemangioma. 2. No evidence of gallstones or biliary tract obstruction. Humble Mendez MD Upper Extremity CTA 11/24/16 0000 Signed Impressions: Service Date/Time: Thursday, November 24, 2016 01:01 - CONCLUSION: 1. Occlusion of the ulnar artery approximately 5 cm distal to its origin and occlusion of the proximal radial artery associated with forearm soft tissue swelling. Findings could be related to an early compartment syndrome. Jayesh Farris MD Radius/Ulna X-Ray 11/24/16 0000 Signed Impressions: Service Date/Time: Thursday, November 24, 2016 01:30 - CONCLUSION: 1. Soft tissue swelling of the forearm. No radiopaque foreign body or acute bony abnormality. Jayesh Farris MD Hand X-Ray 11/24/16 0000 Signed Impressions: Service Date/Time: Thursday, November 24, 2016 01:30 - CONCLUSION: 1. No acute findings. No radiopaque foreign body identified. Jayesh Farris MD Objective Remarks awake and alert, oriented x 3 anicteric no nuchal rigidity, supple, no mass, soft, feels some "tightness" lungs clear regular rhythm abdomen- flat, soft, nontender extremities- right UE- post op dressings in place- tip of thumb and 3rd digit - dry gangrene digital swelling decrease able to move right shoulder with no difficulty right thigh- post op dressing in place left LE , no calf tenderness, moves both feet spontaneously Procedures 1. Right arm volar and dorsal fasciotomy. 2. Exploration of the vessels. 3. Wound VAC placement. 12/03- split thickness skin graft right thigh to right UE A/P Problem List: (1) Compartment syndrome of right upper extremity ICD Code: T79.A11A - Traumatic compartment syndrome of right upper extremity, initial encounter Status: Acute (2) Compartment syndrome of hand ICD Code: T79.A19A - Traumatic compartment syndrome of unspecified upper extremity, initial encounter Status: Acute (3) Ischemia of hand ICD Code: I99.8 - Other disorder of circulatory system Status: Acute (4) Ischemia of digits of hand ICD Code: I99.8 - Other disorder of circulatory system Status: Acute Assessment and Plan 31-year-old male admitted secondary to acute compartment syndrome of the right forearm. Continue to follow clinically. Surgeon following. Plastic surgery will be consulted. Plastic surgery available 12/06/16. Compartment syndrome, right forearm S/P split thickness skin graft from right thigh to right UE- 12/03 S/P right hand fasciotomy, carpal tunnel release, deep dorsal forearm fasciotomy , deep volar forearm arm fasciotomy S/P VAC removal 12/01 - IV Dilaudid prn for pain, po pain meds prn Continue Colace Dr Ely ff- Right hand ischemia- - dry gangrene discoloration of tip of right middle finger and right thumb- stable - good radial pulses - Vascular surgery and Dr. Kayla Edward ff - OP ff up Hypokalemia- resolved Monitor and replace as needed IV drug abuse - d/w him pain regimen 10/27- IV dilaudid + Percocet 10 prn Hepatitis C Standard precautions DVT prophylaxis SCDs/TEDs patient up and ambulating Problem Qualifiers (1) Compartment syndrome of right upper extremity: Qualified Codes: T79.A11A - Traumatic compartment syndrome of right upper extremity, initial encounter (2) Compartment syndrome of hand: Qualified Codes: T79.A11A - Traumatic compartment syndrome of right upper extremity, initial encounter Jennifer Kwan MD Dec 08, 2016 13:05
[2016-12-08 13:11] VITALS: BP 116/66; PULSE 83; RESP 18; TEMP 97.4; O2SAT 96
--- NOTE | 2016-12-08 16:03 | PD.PLAS.PN ---
Subjective Remarks Dressing changed right arm - all xeroform removed. Graft take 100% To remove josefina in a day or two, Xeroform Dressing on the right thigh can be allowed to separate with time OK to discharge from my stand point, please have the patient go to community clinic for any future follow ups. Vital Signs Date Time Temp Pulse Resp B/P (MAP) Pulse Ox O2 Delivery O2 Flow Rate FiO2 12/08/16 13:11 97.4 83 18 116/66 (83) 96 12/08/16 08:22 97.9 80 18 113/75 (88) 96 12/08/16 04:20 97.7 78 18 119/79 (92) 98 12/08/16 00:15 98.1 88 19 115/75 (88) 98 12/07/16 20:30 97.9 91 19 119/72 (88) 98 12/07/16 17:55 18 12/07/16 16:42 98.1 78 16 110/66 (81) 97 I/O 12/07/16 12/07/16 12/07/16 12/08/16 12/08/16 12/08/16 07:00 15:00 23:00 07:00 15:00 23:00 Intake Total 1084 ml 1955 ml 750 ml 480 ml Output Total 460 ml 400 ml 2100 ml 800 ml 700 ml Balance -460 ml 684 ml -145 ml -50 ml -220 ml Intake Oral 1610 ml 750 ml 480 ml IV Total 1084 ml 345 ml Output Urine Total 460 ml 400 ml 2100 ml 800 ml 700 ml # Bowel Movements 1 1 Result Diagram: 12/06/16 0824 Alverto Ely MD Dec 08, 2016 16:03
[2016-12-08 16:53] VITALS: BP 120/69; PULSE 100; RESP 18; TEMP 97.8; O2SAT 96
--- NOTE | 2016-12-08 18:40 | PD.ORT.PN ---
Subjective Subjective Remarks Patient reports moderate pain right hand. Reports persistent paresthesias ulnar and median distribution. Has been working with OT but minimal active ROM Objective Vitals Vital Signs Date Time Temp Pulse Resp B/P (MAP) Pulse Ox O2 Delivery O2 Flow Rate FiO2 12/08/16 16:53 97.8 100 18 120/69 (86) 96 12/08/16 13:11 97.4 83 18 116/66 (83) 96 12/08/16 08:22 97.9 80 18 113/75 (88) 96 12/08/16 04:20 97.7 78 18 119/79 (92) 98 12/08/16 00:15 98.1 88 19 115/75 (88) 98 12/07/16 20:30 97.9 91 19 119/72 (88) 98 I/O 12/07/16 12/07/16 12/07/16 12/08/16 12/08/16 12/08/16 06:59 14:59 22:59 06:59 14:59 22:59 Intake Total 1084 ml 1955 ml 750 ml 480 ml Output Total 460 ml 400 ml 2100 ml 800 ml 700 ml Balance -460 ml 684 ml -145 ml -50 ml -220 ml Intake Oral 1610 ml 750 ml 480 ml IV Total 1084 ml 345 ml Output Urine Total 460 ml 400 ml 2100 ml 800 ml 700 ml # Bowel Movements 1 1 Result Diagram: 12/06/16 0824 Imaging Last 24 hours Impressions Upper Extremity CTA 11/24/16 0000 Signed Impressions: Service Date/Time: Thursday, November 24, 2016 01:01 - CONCLUSION: 1. Occlusion of the ulnar artery approximately 5 cm distal to its origin and occlusion of the proximal radial artery associated with forearm soft tissue swelling. Findings could be related to an early compartment syndrome. Jayesh Farris MD Radius/Ulna X-Ray 11/24/16 0000 Signed Impressions: Service Date/Time: Thursday, November 24, 2016 01:30 - CONCLUSION: 1. Soft tissue swelling of the forearm. No radiopaque foreign body or acute bony abnormality. Jayesh Farris MD Hand X-Ray 11/24/16 0000 Signed Impressions: Service Date/Time: Thursday, November 24, 2016 01:30 - CONCLUSION: 1. No acute findings. No radiopaque foreign body identified. Jayesh Farris MD Objective Remarks Dressing in place, sensation present but decreased median and ulnar distribution , necrosis right middle finger tip and bluish discoloration right thumb, good capillary refill to other fingers, unable to fire fds or fdp to any finger, no wrist flexion/extension Assessment & Plan Assessment and Plan 31yM s/p forearm fasciotomies & VAC Dr Hardwick of vascular surgery, s/p dorsal and volar deep forearm fasciotomies, carpal tunnel release, hand fasciotomies, VAC placement, now s/p skin graft by plastic surgery now with necrosis of right middle finger tip and discoloration right thumb -Okay to discharge for hand surgery standpoint, continue OT -Followup with vascular surgery regarding vascular supply to hand and finger necrosis as vascular primary team and managing vascular supply to hand -Plastic surgery last surgeon to evaluate forearm musculature so can best predict functional prognosis -followup hand surgery Kayla Isaacs MD Dec 08, 2016 18:40
[2016-12-08 20:30] VITALS: BP 115/72; PULSE 88; RESP 17; TEMP 97.6; O2SAT 97
[2016-12-08] MEDS: ENOXAPARIN SODIUM 40 MG/0.4 ML SYRINGE SQ SCH (20:32)
[2016-12-09 00:45] VITALS: BP 126/72; PULSE 87; RESP 17; TEMP 98; O2SAT 97
[2016-12-09] MEDS: HYDROmorphone HCL PF 0.5 MG/0.5 ML SYRINGE IV PUSH PRN ×7 (00:53→21:45)
[2016-12-09] MEDS: LACTATED RINGER'S 1000 ML INJ 1,000 ML IV SCH ×2 (02:00→11:09)
[2016-12-09] MEDS: oxyCODONE/ACETAMINOPHEN 10 MG/325 MG TAB PO PRN ×6 (02:37→21:45)
[2016-12-09 04:40] VITALS: BP 114/64; PULSE 77; RESP 18; TEMP 98; O2SAT 99
[2016-12-09 08:00] VITALS: BP 125/62; PULSE 81; RESP 18; TEMP 98; O2SAT 98
[2016-12-09 08:39] LABS: HEMATOCRIT 32.5 % (39.0-51.0); MEAN CELL VOLUME 83.5 FL (80.0-100.0); MEAN CORPUSCULAR HEMOGLOBIN 28.1 PG (27.0-34.0); MEAN CORPUSCULAR HGB CONC 33.6 % (32.0-36.0); PLATELET COUNT 465 TH/MM3 (150-450); RED CELL DISTRIBUTION WIDTH 17.6 % (11.6-17.2); REVIEW FLAG FINAL; WHITE BLOOD COUNT 9.1 TH/MM3 (4.0-11.0)
[2016-12-09] MEDS: SODIUM CHLORIDE 0.9% FLUSH 10 ML FLUSH IV FLUSH SCH ×2 (09:24→20:32)
[2016-12-09] MEDS: DOCUSATE SODIUM 50 MG/SENNA 8.6 MG TAB PO SCH ×2 (09:24→20:32)
--- NOTE | 2016-12-09 09:31 | HHI.PR ---
Subjective Remarks pain from staple sites no nausea or vomiting josefina- rremove today- Dr. Ely ordered Objective Vitals Vital Signs Date Time Temp Pulse Resp B/P (MAP) Pulse Ox O2 Delivery O2 Flow Rate FiO2 12/09/16 08:00 98.0 81 18 125/62 (83) 98 12/09/16 04:40 98.0 77 18 114/64 (81) 99 12/09/16 00:45 98.0 87 17 126/72 (90) 97 12/08/16 20:30 97.6 88 17 115/72 (86) 97 12/08/16 16:53 97.8 100 18 120/69 (86) 96 12/08/16 13:11 97.4 83 18 116/66 (83) 96 I/O 12/08/16 12/08/16 12/08/16 12/09/16 12/09/16 12/09/16 07:00 15:00 23:00 07:00 15:00 23:00 Intake Total 750 ml 480 ml 1200 ml 1600 ml Output Total 800 ml 700 ml 1600 ml 1200 ml Balance -50 ml -220 ml -400 ml 400 ml Intake Oral 750 ml 480 ml 1200 ml 1600 ml Output Urine Total 800 ml 700 ml 1600 ml 1200 ml # Bowel Movements 1 0 0 Result Diagram: 12/09/16 0805 Imaging Last Impressions Liver Ultrasound 11/26/16 0000 Signed Impressions: Service Date/Time: Saturday, November 26, 2016 10:04 - CONCLUSION: 1. There is a single 1.4 cm hyperechoic mass in the right lobe suggestive of a hemangioma. 2. No evidence of gallstones or biliary tract obstruction. Humble Mendez MD Upper Extremity CTA 11/24/16 0000 Signed Impressions: Service Date/Time: Thursday, November 24, 2016 01:01 - CONCLUSION: 1. Occlusion of the ulnar artery approximately 5 cm distal to its origin and occlusion of the proximal radial artery associated with forearm soft tissue swelling. Findings could be related to an early compartment syndrome. Jayesh Farris MD Radius/Ulna X-Ray 11/24/16 0000 Signed Impressions: Service Date/Time: Thursday, November 24, 2016 01:30 - CONCLUSION: 1. Soft tissue swelling of the forearm. No radiopaque foreign body or acute bony abnormality. Jayesh Farris MD Hand X-Ray 11/24/16 0000 Signed Impressions: Service Date/Time: Thursday, November 24, 2016 01:30 - CONCLUSION: 1. No acute findings. No radiopaque foreign body identified. Jayesh Farris MD Objective Remarks awake and alert, oriented x 3 anicteric no nuchal rigidity, supple, no mass, soft, feels some "tightness" lungs clear regular rhythm abdomen- flat, soft, nontender extremities- right UE- post op area- dry, no erthema, josefina in place- loose digital swelling decrease able to move right shoulder with no difficulty right thigh- dry left LE , no calf tenderness, moves both feet spontaneously Procedures 1. Right arm volar and dorsal fasciotomy. 2. Exploration of the vessels. 3. Wound VAC placement. 12/03- split thickness skin graft right thigh to right UE A/P Problem List: (1) Compartment syndrome of right upper extremity ICD Code: T79.A11A - Traumatic compartment syndrome of right upper extremity, initial encounter Status: Acute (2) Compartment syndrome of hand ICD Code: T79.A19A - Traumatic compartment syndrome of unspecified upper extremity, initial encounter Status: Acute (3) Ischemia of hand ICD Code: I99.8 - Other disorder of circulatory system Status: Acute (4) Ischemia of digits of hand ICD Code: I99.8 - Other disorder of circulatory system Status: Acute Assessment and Plan 31-year-old male admitted secondary to acute compartment syndrome of the right forearm. Continue to follow clinically. Surgeon following. Plastic surgery will be consulted. Plastic surgery available 12/06/16. Compartment syndrome, right forearm S/P split thickness skin graft from right thigh to right UE- 12/03 S/P right hand fasciotomy, carpal tunnel release, deep dorsal forearm fasciotomy , deep volar forearm arm fasciotomy S/P VAC removal 12/01 po pain meds prn Continue Colace Dr Ely ff- cleared for DC- remove josefina today Right hand ischemia- - dry gangrene discoloration of tip of right middle finger and right thumb- stable- demaracated - good radial pulses - Vascular surgery and Dr. Kayla Edward ff - OP ff up Hypokalemia- resolved Monitor and replace as needed IV drug abuse - d/w him pain regimen 12/08- I Percocet 10 prn Hepatitis C Standard precautions DVT prophylaxis SCDs/TEDs patient up and ambulating CM consult- DC today- arrange for OP ff up with a PCP and wound care clinic 3 pm d/w CM- no one at home today- Mom will be available tomorrow Problem Qualifiers (1) Compartment syndrome of right upper extremity: Qualified Codes: T79.A11A - Traumatic compartment syndrome of right upper extremity, initial encounter (2) Compartment syndrome of hand: Qualified Codes: T79.A11A - Traumatic compartment syndrome of right upper extremity, initial encounter Jennifer Kwan MD Dec 09, 2016 09:31
[2016-12-09] MEDS ORDERED: OXYC1TAB36 PO (09:48)
--- NOTE | 2016-12-09 09:50 | HHI.DS ---
Discharge Summary Admission Date Nov 24, 2016 at 02:50 Discharge Date: Dec 09, 2016 Admitting Diagnosis RUE compartment syndrome; limb ischemia (1) Compartment syndrome of right upper extremity ICD Code: T79.A11A - Traumatic compartment syndrome of right upper extremity, initial encounter Diagnosis: Principal Status: Acute (2) Compartment syndrome of hand ICD Code: T79.A19A - Traumatic compartment syndrome of unspecified upper extremity, initial encounter Diagnosis: Principal Status: Acute (3) Ischemia of hand ICD Code: I99.8 - Other disorder of circulatory system Diagnosis: Principal Status: Acute (4) Ischemia of digits of hand ICD Code: I99.8 - Other disorder of circulatory system Diagnosis: Principal Status: Acute Procedures 1. Right arm volar and dorsal fasciotomy. 2. Exploration of the vessels. 3. Wound VAC placement. 12/03- split thickness skin graft right thigh to right UE Brief History - From Admission Mr. Roy is a 31-year-old male. He has a past history of IV drug abuse and polysubstance abuse. He came into the emergency department today with a stiff right forearm. This occurred approximately 20 minutes after injecting "Michelle" into his right forearm. Compartment syndrome appears to be present. The patient has no other past medical history other than IV drug abuse. He is also noted to have hypokalemia and be positive for cocaine. The patient is quite fearful about what is currently happening. Surgical intervention is planned and pending. No other complaints from the patient. He was feeling fine before this. CBC/BMP: 12/09/16 0805 Significant Findings Laboratory Tests Test 12/09/16 08:05 Red Blood Count 3.90 MIL/MM3 (4.50-5.90) Hemoglobin 10.9 GM/DL (13.0-17.0) Hematocrit 32.5 % (39.0-51.0) Red Cell Distribution Width 17.6 % (11.6-17.2) Platelet Count 465 TH/MM3 (150-450) Mean Platelet Volume 6.9 FL (7.0-11.0) Imaging Last Impressions Liver Ultrasound 11/26/16 0000 Signed Impressions: Service Date/Time: Saturday, November 26, 2016 10:04 - CONCLUSION: 1. There is a single 1.4 cm hyperechoic mass in the right lobe suggestive of a hemangioma. 2. No evidence of gallstones or biliary tract obstruction. Humble Mendez MD Upper Extremity CTA 11/24/16 0000 Signed Impressions: Service Date/Time: Thursday, November 24, 2016 01:01 - CONCLUSION: 1. Occlusion of the ulnar artery approximately 5 cm distal to its origin and occlusion of the proximal radial artery associated with forearm soft tissue swelling. Findings could be related to an early compartment syndrome. Jayesh Farris MD Radius/Ulna X-Ray 11/24/16 0000 Signed Impressions: Service Date/Time: Thursday, November 24, 2016 01:30 - CONCLUSION: 1. Soft tissue swelling of the forearm. No radiopaque foreign body or acute bony abnormality. Jayesh Farris MD Hand X-Ray 11/24/16 0000 Signed Impressions: Service Date/Time: Thursday, November 24, 2016 01:30 - CONCLUSION: 1. No acute findings. No radiopaque foreign body identified. Jayesh Farris MD PE at Discharge awake and alert, oriented x 3 anicteric no nuchal rigidity, supple, no mass, soft, feels some "tightness" lungs clear regular rhythm abdomen- flat, soft, nontender extremities- right UE- post op area- dry, no erthema, josefina in place- loose digital swelling decrease able to move right shoulder with no difficulty right thigh- dry left LE , no calf tenderness, moves both feet spontaneously Pt update on day of discharge afebrile good range of motion no signs of infection Hospital Course 31-year-old male admitted secondary to acute compartment syndrome of the right forearm. Continue to follow clinically. Surgeon following. Plastic surgery will be consulted. Plastic surgery available 12/06/16. Compartment syndrome, right forearm S/P split thickness skin graft from right thigh to right UE- 12/03 S/P right hand fasciotomy, carpal tunnel release, deep dorsal forearm fasciotomy , deep volar forearm arm fasciotomy S/P VAC removal 12/01 po pain meds prn Continue Colace Dr Ely ff- cleared for DC- remove josefina today Right hand ischemia- - dry gangrene discoloration of tip of right middle finger and right thumb- stable- demaracated - good radial pulses - Vascular surgery and Dr. Kayla Edward ff - OP ff up Hypokalemia- resolved Monitor and replace as needed IV drug abuse - d/w him pain regimen 12/08- I Percocet 10 prn Hepatitis C Standard precautions right inguinal lymphadenopathy- likely reactive- improved - monitor - - no other LN involved- axillary, supraclavicular- no lymphadenopathy, left inguinal area - no LN DVT prophylaxis SCDs/TEDs patient up and ambulating CM consult- DC today- arrange for OP ff up with a PCP and wound care clinic Pt Condition on Discharge: Stable Discharge Disposition: Disch w/ Home Health Serv Discharge Time: > 30 minutes Discharge Instructions DIET: Follow Instructions for: As Tolerated, No Restrictions Speech Therapy-Diet Recommends: Regular Activities you can perform: Weight Bearing as Mj Follow up Referrals: Hand Surgery - 1 Week with [facility]LO[facility] Vascular Surgery - 1 Week with Michell Briones MD [facility] Care [facility] - 12/12/16 with [facility] New Medications: Oxycodone-Acetaminophen (Oxycodone-Acetaminophen) 10-325 mg Tab 1 TAB PO Q6HR PRN for PAIN SCALE 4 TO 10, #60 TAB Jennifer Kwan MD Dec 09, 2016 09:50
[2016-12-09] MEDS: ENOXAPARIN SODIUM 40 MG/0.4 ML SYRINGE SQ SCH (20:32)
[2016-12-09 21:07] VITALS: BP 124/67; PULSE 90; RESP 18; TEMP 98.5; O2SAT 98
[2016-12-10] VITALS (7 sets, daily range): BP systolic 119–132; BP diastolic 61–74; PULSE 79–90; RESP 17–19; TEMP 97.6–98.6; O2SAT 96–99
[2016-12-10] MEDS: HYDROmorphone HCL PF 0.5 MG/0.5 ML SYRINGE IV PUSH PRN ×3 (02:07→10:31)
[2016-12-10] MEDS: oxyCODONE/ACETAMINOPHEN 10 MG/325 MG TAB PO PRN ×5 (02:07→20:14)
--- NOTE | 2016-12-10 08:20 | HHI.FF ---
Face to Face Verification Diagnosis: (1) Compartment syndrome of hand (2) Ischemia of hand (3) S/P graft- thigh to hand (4) Compartment syndrome of right upper extremity (5) Ischemia of digits of hand Occupational Therapy Order: Evaluate and Treat, Improve ADL, Gross motor coordination, Fine motor coordination Home Health Nursing Order: Signs/symptoms of disease process Medication education-adverse effect Wound care and dressing changes Nursing assessment with vital signs I have seen patient Ian Roy on 12/10/16. My clinical findings support the need for the requested home health care services because: Limited ability to care for self Infection w/ risk of complications I certify that my clinical findings support that this patient is homebound because: Post-op weakness Page Bustillo Dec 10, 2016 08:19
[2016-12-10] MEDS: SODIUM CHLORIDE 0.9% FLUSH 10 ML FLUSH IV FLUSH SCH ×2 (10:30→20:14)
[2016-12-10] MEDS: DOCUSATE SODIUM 50 MG/SENNA 8.6 MG TAB PO SCH ×2 (10:31→20:14)
[2016-12-10] MEDS ORDERED: NAPROXEN 500 MG TAB PO ONE (13:45)
--- NOTE | 2016-12-10 13:49 | HHI.PR ---
Subjective Remarks c/o right groin pain- Objective Vitals Vital Signs Date Time Temp Pulse Resp B/P (MAP) Pulse Ox O2 Delivery O2 Flow Rate FiO2 12/10/16 12:38 98.2 84 19 126/74 (91) 98 12/10/16 08:00 97.6 80 17 126/68 (87) 98 12/10/16 06:00 98.5 79 18 122/66 (84) 99 12/10/16 01:00 98.6 90 18 128/61 (83) 98 12/09/16 21:07 98.5 90 18 124/67 (86) 98 I/O 12/09/16 12/09/16 12/09/16 12/10/16 12/10/16 12/10/16 07:00 15:00 23:00 07:00 15:00 23:00 Intake Total 1600 ml 548 ml Output Total 1200 ml 375 ml 450 ml 600 ml 325 ml Balance 400 ml -375 ml 98 ml -600 ml -325 ml Intake Oral 1600 ml IV Total 548 ml Output Urine Total 1200 ml 375 ml 450 ml 600 ml 325 ml # Bowel Movements 0 Result Diagram: 12/09/16 0805 Imaging Last Impressions Liver Ultrasound 11/26/16 0000 Signed Impressions: Service Date/Time: Saturday, November 26, 2016 10:04 - CONCLUSION: 1. There is a single 1.4 cm hyperechoic mass in the right lobe suggestive of a hemangioma. 2. No evidence of gallstones or biliary tract obstruction. Humble Mendez MD Upper Extremity CTA 11/24/16 0000 Signed Impressions: Service Date/Time: Thursday, November 24, 2016 01:01 - CONCLUSION: 1. Occlusion of the ulnar artery approximately 5 cm distal to its origin and occlusion of the proximal radial artery associated with forearm soft tissue swelling. Findings could be related to an early compartment syndrome. Jayesh Farris MD Radius/Ulna X-Ray 11/24/16 0000 Signed Impressions: Service Date/Time: Thursday, November 24, 2016 01:30 - CONCLUSION: 1. Soft tissue swelling of the forearm. No radiopaque foreign body or acute bony abnormality. Jayesh Farris MD Hand X-Ray 11/24/16 0000 Signed Impressions: Service Date/Time: Thursday, November 24, 2016 01:30 - CONCLUSION: 1. No acute findings. No radiopaque foreign body identified. Jayesh Farris MD Objective Remarks awake and alert, oriented x 3 anicteric no nuchal rigidity, supple, no mass, soft, feels some "tightness" lungs clear regular rhythm abdomen- flat, soft, nontender extremities- right UE- post op area- dry, no erythema, digital swelling decrease able to move right shoulder with no difficulty right groin- ++ pulses, no erythema no scrotal swelling, no hernia right thigh- dry left LE , no calf tenderness, moves both feet spontaneously Procedures 1. Right arm volar and dorsal fasciotomy. 2. Exploration of the vessels. 3. Wound VAC placement. 12/03- split thickness skin graft right thigh to right UE A/P Problem List: (1) Compartment syndrome of right upper extremity ICD Code: T79.A11A - Traumatic compartment syndrome of right upper extremity, initial encounter Status: Acute (2) Compartment syndrome of hand ICD Code: T79.A19A - Traumatic compartment syndrome of unspecified upper extremity, initial encounter Status: Acute (3) Ischemia of hand ICD Code: I99.8 - Other disorder of circulatory system Status: Acute (4) Ischemia of digits of hand ICD Code: I99.8 - Other disorder of circulatory system Status: Acute Assessment and Plan 31-year-old male admitted secondary to acute compartment syndrome of the right forearm. Continue to follow clinically. Surgeon following. Plastic surgery will be consulted. Plastic surgery available 12/06/16. Compartment syndrome, right forearm S/P split thickness skin graft from right thigh to right UE- 12/03 S/P right hand fasciotomy, carpal tunnel release, deep dorsal forearm fasciotomy , deep volar forearm arm fasciotomy S/P VAC removal 12/01 po pain meds prn Continue Colace Dr Ely ff- cleared for DC- remove josefina today Right hand ischemia- - dry gangrene discoloration of tip of right middle finger and right thumb- stable- demaracated - good radial pulses - Vascular surgery and Dr. Kayla Edward ff - OP ff up Hypokalemia- resolved Monitor and replace as needed IV drug abuse - d/w him pain regimen 12/08- I Percocet 10 prn Hepatitis C Standard precautions right inguinal lymphadenopathy- likely reactive - monitor - if persist consider imaging study or biopsy - no other LN involved- axillary, supraclavicular- no lymphadenopathy, left inguinal area - no LN DVT prophylaxis SCDs/TEDs patient up and ambulating CM consult- DC today- arrange for OP ff up with a PCP and wound care clinic 3 pm d/w CM- no one at home today- Mom will be available tomorrow Problem Qualifiers (1) Compartment syndrome of right upper extremity: Qualified Codes: T79.A11A - Traumatic compartment syndrome of right upper extremity, initial encounter (2) Compartment syndrome of hand: Qualified Codes: T79.A11A - Traumatic compartment syndrome of right upper extremity, initial encounter Jennifer Kwan MD Dec 10, 2016 13:49
[2016-12-10] MEDS: ENOXAPARIN SODIUM 40 MG/0.4 ML SYRINGE SQ SCH (20:14)
[2016-12-11] MEDS: oxyCODONE/ACETAMINOPHEN 10 MG/325 MG TAB PO PRN ×5 (00:16→16:01)
[2016-12-11 01:09] VITALS: BP 123/64; PULSE 74; RESP 18; TEMP 97.8; O2SAT 99
[2016-12-11 06:20] VITALS: BP 117/69; PULSE 69; RESP 18; TEMP 97.3; O2SAT 97
[2016-12-11] MEDS: SODIUM CHLORIDE 0.9% FLUSH 10 ML FLUSH IV FLUSH SCH (08:28)
[2016-12-11] MEDS: DOCUSATE SODIUM 50 MG/SENNA 8.6 MG TAB PO SCH (08:28)
[2016-12-11 09:14] VITALS: BP 107/67; PULSE 80; RESP 18; TEMP 97.8; O2SAT 99
[2016-12-11 11:30] VITALS: BP 130/73; PULSE 83; RESP 18; TEMP 97.3; O2SAT 96
--- NOTE | 2016-12-11 13:49 | HHI.PR ---
Subjective Remarks patient doing very well no complains- pain controlled Objective Vitals Vital Signs Date Time Temp Pulse Resp B/P (MAP) Pulse Ox O2 Delivery O2 Flow Rate FiO2 12/11/16 11:30 97.3 83 18 130/73 (92) 96 12/11/16 09:30 16 12/11/16 09:14 97.8 80 18 107/67 (80) 99 12/11/16 06:20 97.3 69 18 117/69 (85) 97 12/11/16 01:09 97.8 74 18 123/64 (83) 99 12/10/16 21:30 97.7 79 18 126/65 (85) 99 12/10/16 16:00 97.9 80 19 119/68 (85) 96 I/O 12/10/16 12/10/16 12/10/16 12/11/16 12/11/16 12/11/16 07:00 15:00 23:00 07:00 15:00 23:00 Output Total 600 ml 1875 ml 150 ml 300 ml Balance -600 ml -1875 ml -150 ml -300 ml Output Urine Total 600 ml 1875 ml 150 ml 300 ml # Voids 2 # Bowel Movements 0 Result Diagram: 12/09/16 0805 Imaging Last Impressions Liver Ultrasound 11/26/16 0000 Signed Impressions: Service Date/Time: Saturday, November 26, 2016 10:04 - CONCLUSION: 1. There is a single 1.4 cm hyperechoic mass in the right lobe suggestive of a hemangioma. 2. No evidence of gallstones or biliary tract obstruction. Humble Mendez MD Upper Extremity CTA 11/24/16 0000 Signed Impressions: Service Date/Time: Thursday, November 24, 2016 01:01 - CONCLUSION: 1. Occlusion of the ulnar artery approximately 5 cm distal to its origin and occlusion of the proximal radial artery associated with forearm soft tissue swelling. Findings could be related to an early compartment syndrome. Jayesh Farris MD Radius/Ulna X-Ray 11/24/16 0000 Signed Impressions: Service Date/Time: Thursday, November 24, 2016 01:30 - CONCLUSION: 1. Soft tissue swelling of the forearm. No radiopaque foreign body or acute bony abnormality. Jayesh Farris MD Hand X-Ray 11/24/16 0000 Signed Impressions: Service Date/Time: Thursday, November 24, 2016 01:30 - CONCLUSION: 1. No acute findings. No radiopaque foreign body identified. Jayesh Farris MD Objective Remarks awake and alert, oriented x 3 anicteric no nuchal rigidity, supple, no mass, soft, feels some "tightness" lungs clear regular rhythm abdomen- flat, soft, nontender extremities- right UE- post op area- dry, no erythema, digital swelling decrease able to move right shoulder with no difficulty right groin- no erythema, no tenderness no scrotal swelling, no hernia right thigh- dry left LE , no calf tenderness, moves both feet spontaneously Procedures 1. Right arm volar and dorsal fasciotomy. 2. Exploration of the vessels. 3. Wound VAC placement. 12/03- split thickness skin graft right thigh to right UE A/P Problem List: (1) Compartment syndrome of right upper extremity ICD Code: T79.A11A - Traumatic compartment syndrome of right upper extremity, initial encounter Status: Acute (2) Compartment syndrome of hand ICD Code: T79.A19A - Traumatic compartment syndrome of unspecified upper extremity, initial encounter Status: Acute (3) Ischemia of hand ICD Code: I99.8 - Other disorder of circulatory system Status: Acute (4) Ischemia of digits of hand ICD Code: I99.8 - Other disorder of circulatory system Status: Acute Assessment and Plan 31-year-old male admitted secondary to acute compartment syndrome of the right forearm. Continue to follow clinically. Surgeon following. Plastic surgery will be consulted. Plastic surgery available 12/06/16. Compartment syndrome, right forearm S/P split thickness skin graft from right thigh to right UE- 12/03 S/P right hand fasciotomy, carpal tunnel release, deep dorsal forearm fasciotomy , deep volar forearm arm fasciotomy S/P VAC removal 12/01 po pain meds prn Continue Colace Dr Ely ff- cleared for DC- remove josefina today Right hand ischemia- - dry gangrene discoloration of tip of right middle finger and right thumb- stable- demaracated - good radial pulses - Vascular surgery and Dr. Kayla Edward ff - OP ff up Hypokalemia- resolved Monitor and replace as needed IV drug abuse - d/w him pain regimen 12/08- I Percocet 10 prn Hepatitis C Standard precautions right inguinal lymphadenopathy- likely reactive - monitor - if persist consider imaging study or biopsy - no other LN involved- axillary, supraclavicular- no lymphadenopathy, left inguinal area - no LN DVT prophylaxis SCDs/TEDs patient up and ambulating CM consult- DC today- arrange for OP ff up with a PCP and wound care clinic 3 pm d/w CM- no one at home today- Mom will be available tomorrow Problem Qualifiers (1) Compartment syndrome of right upper extremity: Qualified Codes: T79.A11A - Traumatic compartment syndrome of right upper extremity, initial encounter (2) Compartment syndrome of hand: Qualified Codes: T79.A11A - Traumatic compartment syndrome of right upper extremity, initial encounter Jennifer Kwan MD Dec 11, 2016 13:49
[2016-12-11] MEDS ORDERED: PERC5TAB12 PO ×2 (14:18→14:20)
--- NOTE | 2016-12-11 15:35 | HHI.FF ---
Face to Face Verification Diagnosis: (1) Compartment syndrome of hand (2) S/P graft- thigh to hand Home Health Nursing Order: Wound care and dressing changes Nursing assessment with vital signs Electrical Calibrator Order: To Evaluate: Living conditions/environment, Support services I have seen patient Ian Roy on 12/11/16. My clinical findings support the need for the requested home health care services because: Ltd mobility - disease progression I certify that my clinical findings support that this patient is homebound because: Post-op weakness Jennifer Kwan MD Dec 11, 2016 15:35
== END 2016-12-11 17:12 | disposition home health service (06) | DRG 904 ==
LOC: PHED 00:27 → PHEDA 02:50 → HPAC 06:16 → N03A 07:33 → N05B 11-25 17:42
PROVIDERS: ADMIT Internal Medicine; ATTEND Internal Medicine
PROC: 0KN90ZZ Release Right Lower Arm and Wrist Muscle, Open Approach (ICD-10-PCS; 2016-11-24)
PROC: 0KN90ZZ Release Right Lower Arm and Wrist Muscle, Open Approach (ICD-10-PCS; 2016-11-24)
PROC: 01N50ZZ Release Median Nerve, Open Approach (ICD-10-PCS; 2016-11-24)
PROC: 0KNC0ZZ Release Right Hand Muscle, Open Approach (ICD-10-PCS; 2016-11-24)
PROC: 0KNC0ZZ Release Right Hand Muscle, Open Approach (ICD-10-PCS; 2016-11-24)
PROC: 0KNC0ZZ Release Right Hand Muscle, Open Approach (ICD-10-PCS; 2016-11-24)
PROC: 0KNC0ZZ Release Right Hand Muscle, Open Approach (ICD-10-PCS; 2016-11-24)
PROC: 0KNC0ZZ Release Right Hand Muscle, Open Approach (ICD-10-PCS; 2016-11-24)
PROC: 0KNC0ZZ Release Right Hand Muscle, Open Approach (ICD-10-PCS; 2016-11-24)
PROC: 0KNC0ZZ Release Right Hand Muscle, Open Approach (ICD-10-PCS; 2016-11-24)
PROC: 0KNC0ZZ Release Right Hand Muscle, Open Approach (ICD-10-PCS; 2016-11-24)
PROC: 0KNC0ZZ Release Right Hand Muscle, Open Approach (ICD-10-PCS; 2016-11-24)
PROC: 0KNC0ZZ Release Right Hand Muscle, Open Approach (ICD-10-PCS; 2016-11-24)
PROC: 0KN90ZZ Release Right Lower Arm and Wrist Muscle, Open Approach (ICD-10-PCS; 2016-11-24)
PROC: 0KN90ZZ Release Right Lower Arm and Wrist Muscle, Open Approach (ICD-10-PCS; 2016-11-24)
PROC: 0KD90ZZ Extraction of Right Lower Arm and Wrist Muscle, Open Approach (ICD-10-PCS; 2016-11-27)
PROC: 2W0LX6Z Change Pressure Dressing on Right Lower Extremity (ICD-10-PCS; 2016-11-27)
PROC: 0KD90ZZ Extraction of Right Lower Arm and Wrist Muscle, Open Approach (ICD-10-PCS; 2016-12-01)
PROC: 0HBHXZZ Excision of Right Upper Leg Skin, External Approach (ICD-10-PCS; 2016-12-03)
PROC: 0HRDX74 Replacement of Right Lower Arm Skin with Autologous Tissue Substitute, Partial Thickness, External Approach (ICD-10-PCS; principal; 2016-12-03 13:46)
DX: T79.A11A Traumatic compartment syndrome of right upper extremity, initial encounter (principal); I96 Gangrene, not elsewhere classified; F11.10 Opioid abuse, uncomplicated; B19.20 Unspecified viral hepatitis C without hepatic coma; I99.8 Other disorder of circulatory system; G56.01 Carpal tunnel syndrome, right upper limb; R59.0 Localized enlarged lymph nodes; E87.6 Hypokalemia; F14.10 Cocaine abuse, uncomplicated; F15.10 Other stimulant abuse, uncomplicated; F12.10 Cannabis abuse, uncomplicated; D18.03 Hemangioma of intra-abdominal structures; Z87.891 Personal history of nicotine dependence
CPT/HCPCS: 20950; 73090; 73130; 73206; 76705; 76937; 80048; 80053; 80074; 80076; 80307; 82105; 82948; 83735; 85025; 85027; 85610; 85730; 86850; 86900; 86901; 87522; 87902; 93005; 94150; 96361; 96365; 96375; J1170; J0131; J0330; J0690; J1100; J1580; J1644; J1650; J2175; J2250; J2270; J2370; J2405; J3010; J3480; J7030; J7120; Q9967

== ENCOUNTER 2016-12-26 16:02 | Emergency (ER) | payer SELFPAY ==
[~2016-12-26 16:02] MED LIST changes: -DOXY100T PO; +PERC5TAB12 PO; -ULTR50TA5 PO
[2016-12-26 16:05] VITALS: BP 135/90; PULSE 94; RESP 15; TEMP 97.7; O2SAT 98
[2016-12-26] MEDS ORDERED: GABA300C5 PO ×2 (19:45)
[2016-12-26] MEDS ORDERED: CLIN300C5 PO ×2 (19:45)
--- NOTE | 2016-12-26 20:01 | PD ---
HPI Chief Complaint: Musculoskeletal Complaint Time Seen by Provider: 19:51 Travel History International Travel<30 days: No Contact w/Intl Traveler<30days: No Traveled to known affect area: No History of Present Illness HPI 31-year-old male requesting wound check. Patient status post fasciotomy an I&D of right forearm and right wrist and right hand a month ago. Patient has not seen any plastic surgeon or hand surgeon for follow up as directed. Patient states that he has swelling of the right forearm and blackening of the tip of the fingers, the right thumb and the right third finger. Patient has history of IV drug abuse. Patient denies any history hypertension and diabetes. Patient denies any fever chills. PFSH Past Medical History Asthma: Yes (as a child) Heart Rhythm Problems: Yes (hx of svt) Cancer: No Cardiovascular Problems: No Diminished Hearing: No Endocrine: No Immune Disorder: No Kidney Stones: Yes Musculoskeletal: No Neurologic: No Psychiatric: No Reproductive: No Respiratory: No Immunizations Current: No Tetanus Vaccination: < 5 Years Influenza Vaccination: No Past Surgical History Pacemaker: No Other Surgery: Yes (Right arm surgery due to "Michelle" IV injection) Social History Alcohol Use: No Tobacco Use: Yes (1 ppd) Substance Use: Yes (pain killers) Allergies-Medications (Allergen,Severity, Reaction): Coded Allergies: No Known Allergies (Verified Adverse Reaction, Unknown, 12/26/16) Reported Meds & Prescriptions Reported Meds & Active Scripts Active Reported Clindamycin (Clindamycin HCl) 300 Mg Cap 300 Mg PO BID Gabapentin 300 Mg Cap 300 Mg PO BID Review of Systems General / Constitutional: No: Fever Eyes: No: Visual changes HENT: No: Headaches Cardiovascular: No: Chest Pain or Discomfort Respiratory: No: Shortness of Breath Gastrointestinal: No: Abdominal Pain Genitourinary: No: Dysuria Musculoskeletal: No: Pain Skin: No Rash Neurologic: No: Weakness Psychiatric: No: Depression Endocrine: No: Polydipsia Hematologic/Lymphatic: No: Easy Bruising Physical Exam Narrative GENERAL: Well-nourished, well-developed patient. SKIN: Focused skin assessment warm/dry. HEAD: Normocephalic. EYES: No scleral icterus. No injection or drainage. NECK: Supple, trachea midline. No JVD or lymphadenopathy. CARDIOVASCULAR: Regular rate and rhythm without murmurs, gallops, or rubs. RESPIRATORY: Breath sounds equal bilaterally. No accessory muscle use. GASTROINTESTINAL: Abdomen soft, non-tender, nondistended. MUSCULOSKELETAL: No cyanosis, or edema. BACK: Nontender without obvious deformity. No CVA tenderness. Examination the right forearm diffuse soft tissue swelling on the ulnar aspect of the right forearm. Healing wound on the right forearm. Sutures still in place on the right wrist and right hand. No redness no heat. No discharge. Patient has blackened tissue of the tip of the right thumb and also right third finger. Mild diffuse soft tissue swelling of the fingers otherwise full range of motion of the fingers. Data Data Last Documented VS Vital Signs Date Time Temp Pulse Resp B/P (MAP) Pulse Ox O2 Delivery O2 Flow Rate FiO2 12/26/16 19:42 20 12/26/16 16:05 97.7 94 135/90 (105) 98 Orders Orders Wound Care (12/26/16 20:02) Ed Discharge Order (12/26/16 20:18) MDM Medical Decision Making Medical Screen Exam Complete: Yes Emergency Medical Condition: Yes Differential Diagnosis Differential diagnosis including suture removal, wound check, cellulitis. Narrative Course 31-year-old male with wound check right forearm. Status post fasciotomy an I&D of the infected right forearm. Patient has not seen a follow-up with plastic surgeon as directed. I spoke with Dr. Hardwick, the physician who saw the patient and operated on the patient at last visit. Advised suture removal, wound care and follow-up with hand surgeon. Procedures Procedure Narrative Suture removal with forceps and #11 scalpel. Diagnosis Primary Impression: Visit for suture removal Additional Impression: Visit for wound check Patient Instructions: General Instructions Additional Instructions: Wound care daily. Follow up with hand surgeon. Med/Other Pt SpecificInfo: Prescription(s) given Disposition: DISCHARGE HOME Condition: Stable Aubrey Metcalf MD Dec 26, 2016 20:01
== END 2016-12-26 20:14 | disposition home or self-care (01) ==
LOC: NEPD 16:02
DX: Z48.02 Encounter for removal of sutures (principal)
CPT/HCPCS: 99281

== ENCOUNTER 2017-01-02 18:41 | Inpatient (IN) | payer SELFPAY ==
[~2017-01-02] VITALS: Ht 180.3 cm; Wt 67.1 kg
[2017-01-02] VITALS (8 sets, daily range): BP systolic 108–150; BP diastolic 55–85; PULSE 90–111; RESP 16–20; TEMP 99.6–102; O2SAT 98–99
[~2017-01-02 18:41] MED LIST changes: +CLIN300C5 PO; +GABA300C5 PO
--- NOTE | 2017-01-02 19:50 | PD ---
HPI Chief Complaint: Skin Problem Time Seen by Provider: 19:34 Travel History International Travel<30 days: No Contact w/Intl Traveler<30days: No Traveled to known affect area: No History of Present Illness HPI The patient is a 31-year-old right-hand dominant male, former IV drug abuser, who injected michelle into his right arm on the of last month. His right arm got infected and he was in the hospital at [place] until is discharge on the of last month. He had a compartment syndrome on the right forearm and had extensive reconstructive surgery by Dr. Reaves. His next appointment with Dr. eRaves is on the first of next month. He noticed that the thumb and long finger at the distal phalanx are turning black. He came in mainly because of an infection starting in the left hand at the left index finger. He denies injecting that finger and denies doing any drug abuse since the of last month. He came in primarily for the pain in the left hand. He does not know whether he has had a fever at home but has had chills. He is not on any antibiotics now. PFSH Past Medical History Asthma: Yes (as a child) Heart Rhythm Problems: Yes (hx of svt) Cancer: No Cardiovascular Problems: No Diminished Hearing: No Endocrine: No Immune Disorder: No Kidney Stones: Yes Musculoskeletal: No Neurologic: No Psychiatric: No Reproductive: No Respiratory: No Immunizations Current: No Past Surgical History Pacemaker: No Other Surgery: Yes (Right arm surgery due to "Michelle" IV injection) Social History Alcohol Use: No Tobacco Use: Yes (1 ppd) Substance Use: Yes (pain killers) Allergies-Medications (Allergen,Severity, Reaction): Coded Allergies: No Known Allergies (Verified Adverse Reaction, Unknown, 01/02/17) Reported Meds & Prescriptions Reported Meds & Active Scripts Active Reported Clindamycin (Clindamycin HCl) 300 Mg Cap 300 Mg PO BID Gabapentin 300 Mg Cap 300 Mg PO BID Review of Systems Except as stated in HPI: all other systems reviewed are Neg Physical Exam Narrative GENERAL: The patient is alert, oriented 3 and moderate distress with his left hand pain and right forearm pain. His vital signs show a temperature 102. The initial temperature was while the patient was mouth breathing. The heart rate is 111 and the rest the vital signs are normal. SKIN: Focused skin assessment warm/dry. There is a cellulitis of the left hand involving the left index finger, to a lesser extent, left long finger and the dorsum of the hand from the first and second metacarpals to the wrist. The right hand shows gangrene on the thumb and long finger at the distal phalanx. He has marked decreased function of the right hand. There is an open area of exposed tissue from the right wrist to just above the elbow volarly. HEAD: Atraumatic. Normocephalic. EYES: Pupils equal and round. No scleral icterus. No injection or drainage. ENT: No nasal bleeding or discharge. Mucous membranes pink and moist. NECK: Trachea midline. No JVD. There is no meningismus present. CARDIOVASCULAR: Regular rate and rhythm. No murmur appreciated. RESPIRATORY: No accessory muscle use. Clear to auscultation. Breath sounds equal bilaterally. GASTROINTESTINAL: Abdomen soft, non-tender, nondistended. Hepatic and splenic margins not palpable. MUSCULOSKELETAL: No obvious deformities. No clubbing. No cyanosis. No edema. NEUROLOGICAL: Awake and alert. No obvious cranial nerve deficits. Motor grossly within normal limits. Normal speech. PSYCHIATRIC: Appropriate mood and affect; insight and judgment normal. He does not appear to be drug intoxicated. Data Data Last Documented VS Vital Signs Date Time Temp Pulse Resp B/P (MAP) Pulse Ox O2 Delivery O2 Flow Rate FiO2 01/02/17 21:02 104 20 144/82 (102) 98 01/02/17 19:52 102.0 Room Air Orders Orders Sepsis Workup Initiated (01/02/17 ) Complete Blood Count With Diff (01/02/17 19:42) Comprehensive Metabolic Panel (01/02/17 19:42) Lactic Acid Sepsis Protocol (01/02/17 19:42) Urinalysis - C+S If Indicated (01/02/17 19:42) Blood Culture (01/02/17 19:42) Wound Culture And Gram Stain (01/02/17 19:42) Chest, Pa & Lat (01/02/17 19:42) Blood Glucose (01/02/17 19:42) Ecg Monitoring (01/02/17 19:42) Iv Access Insert/Monitor (01/02/17 19:42) Oximetry (01/02/17 19:42) Oxygen Administration (01/02/17 19:42) Drug Screen, Random Urine (01/02/17 19:56) Vancomycin Inj (Vancomycin Inj) (01/02/17 20:15) Sodium Chlor 0.9% 1000 Ml Inj (Ns 1000 M (01/02/17 20:15) Electrocardiogram (01/02/17 20:35) Acetaminophen (Tylenol) (01/02/17 21:00) Ketorolac Inj (Toradol Inj) (01/02/17 21:15) Admit To Inpatient (01/02/17 ) Vital Signs (Adult) Q4H (01/02/17 22:11) Activity Oob With Assistance (01/02/17 22:11) Bedside Glucose PARISA.CSUGAR (01/02/17 22:11) Diet Regular Basic (01/03/17 Breakfast) Sodium Chlor 0.9% 1000 Ml Inj (Ns 1000 M (01/02/17 22:11) Sodium Chloride 0.9% Flush (Ns Flush) (01/02/17 22:15) Sodium Chloride 0.9% Flush (Ns Flush) (01/03/17 09:00) Acetaminophen (Tylenol) (01/02/17 22:15) Ondansetron Inj (Zofran Inj) (01/02/17 22:15) Basic Metabolic Panel (Bmp) (01/03/17 06:00) Complete Blood Count With Diff (01/03/17 06:00) Scd Bilateral/Knee High PARISA.BID (01/02/17 22:11) Naloxone Inj (Narcan Inj) (01/02/17 22:15) Docusate Sodium-Senna (Mary-Colace) (01/03/17 09:00) Magnesium Hydroxide Liq (Milk Of Magnesi (01/02/17 22:15) Sennosides (Senokot) (01/02/17 22:15) Bisacodyl Supp (Dulcolax Supp) (01/02/17 22:15) Lactulose Liq (Lactulose Liq) (01/02/17 22:15) Inpatient Certification (01/02/17 ) Vancomycin Consult Pharmacy (Vancomycin (01/02/17 22:15) Admit Order (Ed Use Only) (01/02/17 22:14) Admit Order (Ed Use Only) (01/02/17 22:14) Diphenhydramine Inj (Benadryl Inj) (01/02/17 22:30) Labs Laboratory Tests Test 01/02/17 19:45 01/02/17 20:40 01/02/17 22:25 White Blood Count 11.8 TH/MM3 Red Blood Count 3.88 MIL/MM3 Hemoglobin 10.4 GM/DL Hematocrit 31.5 % Mean Corpuscular Volume 81.4 FL Mean Corpuscular Hemoglobin 26.9 PG Mean Corpuscular Hemoglobin Concent 33.0 % Red Cell Distribution Width 14.6 % Platelet Count 351 TH/MM3 Mean Platelet Volume 6.7 FL Neutrophils (%) (Auto) 83.8 % Lymphocytes (%) (Auto) 8.5 % Monocytes (%) (Auto) 6.9 % Eosinophils (%) (Auto) 0.6 % Basophils (%) (Auto) 0.2 % Neutrophils # (Auto) 9.9 TH/MM3 Lymphocytes # (Auto) 1.0 TH/MM3 Monocytes # (Auto) 0.8 TH/MM3 Eosinophils # (Auto) 0.1 TH/MM3 Basophils # (Auto) 0.0 TH/MM3 CBC Comment DIFF FINAL Differential Comment Blood Urea Nitrogen 8 MG/DL Creatinine 1.10 MG/DL Random Glucose 101 MG/DL Total Protein 7.7 GM/DL Albumin 2.9 GM/DL Calcium Level 8.2 MG/DL Alkaline Phosphatase 83 U/L Aspartate Amino Transf (AST/SGOT) 8 U/L Alanine Aminotransferase (ALT/SGPT) 15 U/L Total Bilirubin 0.3 MG/DL Sodium Level 136 MEQ/L Potassium Level 3.4 MEQ/L Chloride Level 103 MEQ/L Carbon Dioxide Level 24.9 MEQ/L Anion Gap 8 MEQ/L Estimat Glomerular Filtration Rate 78 ML/MIN Lactic Acid Level 2.2 mmol/L Urine Color YELLOW Urine Turbidity CLEAR Urine pH 5.5 Urine Specific Superior 1.026 Urine Protein NEG mg/dL Urine Glucose (UA) NEG mg/dL Urine Ketones NEG mg/dL Urine Occult Blood NEG Urine Nitrite NEG Urine Bilirubin NEG Urine Leukocyte Esterase NEG Urine Squamous Epithelial Cells 0-5 /hpf Urine Calcium Oxalate Crystals MOD /hpf Urine Hyaline Casts 3-5 /lpf Urine Granular Casts 0-2 /lpf Urine Mucus MOD /lpf Microscopic Urinalysis Comment CULT NOT INDICATED Urine Opiates Screen POS Urine Barbiturates Screen NEG Urine Amphetamines Screen NEG Urine Benzodiazepines Screen POS Urine Cocaine Screen POS Urine Cannabinoids Screen POS MDM Medical Decision Making Medical Screen Exam Complete: Yes Emergency Medical Condition: Yes Medical Record Reviewed: Yes Interpretation(s) The complete metabolic profile shows a GFR of 78, albumen of 2.9, calcium 8.2, potassium of 3.4 but is otherwise normal. The lactic acid is 2.2. The CBC shows a white count of 11,800 with 84% neutrophils. The hemoglobin is 10.4 and hematocrit of 31.5. Differential Diagnosis Sepsis, bacterial endocarditis, cellulitis right forearm, cellulitis left hand, continued IV drug abuse, tenosynovitis, abscess hand Narrative Course The patient fits the criteria for sepsis with the elevated lactic acid, heart rate and temperature of 102.5. The patient does have a cellulitis of the left hand without any evidence of any abscess or tenosynovitis. Sepsis Criteria SIRS Criteria (2 or more): Temp > 100.9 or < 96.8, Heart rate over 90 Sepsis Criteria (SIRS+source): Infect source susp/known Diagnosis Primary Impression: Sepsis Additional Impression: Cellulitis of left hand Admitting Information Admitting Physician Requests: Admit Rolando Godoy MD Jan 02, 2017 19:50
[2017-01-02 20:15] LABS: AUTOMATED NEUTROPHIL # 9.9 TH/MM3 (1.8-7.7); BASOPHIL % 0.2 % (0.0-2.0); EOSINOPHIL # 0.1 TH/MM3 (0-0.4); EOSINOPHIL % 0.6 % (0.0-4.0); HEMATOCRIT 31.5 % (39.0-51.0); HEMO FLAGS DIFF FINAL; LYMPH % 8.5 % (9.0-44.0); MEAN CELL VOLUME 81.4 FL (80.0-100.0); MEAN CORPUSCULAR HEMOGLOBIN 26.9 PG (27.0-34.0); MONO % 6.9 % (0.0-8.0); NEUT % 83.8 % (16.0-70.0); PLATELET COUNT 351 TH/MM3 (150-450); RED BLOOD COUNT 3.88 MIL/MM3 (4.50-5.90); RED CELL DISTRIBUTION WIDTH 14.6 % (11.6-17.2); WHITE BLOOD COUNT 11.8 TH/MM3 (4.0-11.0)
[2017-01-02] MEDS ORDERED: VANCOMYCIN INJ 1,500 MG in SODIUM CHLORID 0.9% 500 ML INJ 500 ML IV ONE (20:15)
[2017-01-02 20:22] LABS: CHLORIDE 103 MEQ/L (98-107); POTASSIUM 3.4 MEQ/L (3.5-5.1); SODIUM (NA) 136 MEQ/L (136-145)
[2017-01-02 20:26] LABS: ANION GAP 8 MEQ/L (5-15); BICARBONATE 24.9 MEQ/L (21.0-32.0); BLOOD UREA NITROGEN 8 MG/DL (7-18)
[2017-01-02] MEDS: SODIUM CHLOR 0.9% 1000 ML INJ 1,000 ML IV SCH ×2 (20:27→22:46)
[2017-01-02 20:29] LABS: ALT (GPT) 15 U/L (12-78); AST (GOT) 8 U/L (15-37); GLOMERULAR FILTRATION RATE 78 ML/MIN (>89)
[2017-01-02] MEDS ORDERED: ACETAMINOPHEN 500 MG CPLT PO ONE ×2 (20:30→21:00)
[2017-01-02 20:31] LABS: TOTAL BILIRUBIN ADULT 0.3 MG/DL (0.2-1.0)
[2017-01-02 20:32] LABS: ALKALINE PHOSPHATASE 83 U/L (45-117)
[2017-01-02 20:49] LABS: BLOOD, URINE NEG (NEG); GLUCOSE,URINE NEG (NEG); KETONE, URINE NEG (NEG); NITRITE,URINE NEG (NEG); PH, URINE 5.5 (5.0-8.5)
[2017-01-02 21:15] LABS: MUCUS URINE MOD /lpf (OCC); URINE COLOR YELLOW (YELLW/STRAW)
[2017-01-02] MEDS ORDERED: KETOROLAC TROMETHAMINE 60 MG/2 ML (IM) VIAL IVP ONE (21:15)
[2017-01-02 21:16] LABS: GRANULAR CAST, URINE 0-2 /lpf
--- NOTE | 2017-01-02 21:16 | RADRPT ---
EXAM DATE/TIME: 01/02/2017 20:38 [facility] COMPARISON: No previous studies available for comparison. INDICATIONS : Fever for 2 days. MEDICAL HISTORY : None. SURGICAL HISTORY : None. ENCOUNTER: Initial ACUITY: 2 days PAIN SCORE: 0/10 LOCATION: Bilateral chest FINDINGS: PA and lateral views of the chest demonstrate the lungs to be symmetrically aerated without evidence of mass, infiltrate or effusion. The cardiomediastinal contours are unremarkable. Osseous structure s are intact. CONCLUSION: No acute cardiopulmonary disease. Raymond Wheat MD on January 02, 2017 at 21:14 Board Certified Radiologist. This report was verified electronically.
[2017-01-02 21:18] LABS: CALCIUM OXALATE CRYSTALS,URINE MOD /hpf; SQUAMOUS EPITHELIAL CELL URINE 0-5 /hpf (0-5)
[2017-01-02 21:19] LABS: COMMENT (UR) CULT NOT INDICATED; CULTURE IF INDICATED CULT NOT INDICATED
[2017-01-02 22:11] LABS: LACTIC ACID GHOST NOT REPORTABLE
[2017-01-02] MEDS ORDERED: SODIUM CHLOR 0.9% 1000 ML INJ 1,000 ML IV SCH (22:11)
[2017-01-02] MEDS ORDERED: MAGNESIUM HYDROXIDE SUSP 30 ML CUP PO PRN (22:15)
[2017-01-02] MEDS ORDERED: NALOXONE HCL 0.4 MG/ML AMP IV PUSH PRN (22:15)
[2017-01-02] MEDS ORDERED: LACTULOSE SYRUP 20 GM/30 ML CUP PO PRN (22:15)
[2017-01-02] MEDS ORDERED: BISACODYL 10 MG SUPP RECTAL PRN (22:15)
[2017-01-02] MEDS ORDERED: SENNOSIDES 8.6 MG TAB PO PRN (22:15)
[2017-01-02] MEDS ORDERED: Vancomycin Consult Pharmacy 1 EA OTHER SCH (22:15)
[2017-01-02] MEDS ORDERED: SODIUM CHLORIDE 0.9% FLUSH 10 ML FLUSH IV FLUSH PRN (22:15)
[2017-01-02] MEDS ORDERED: diphenhydrAMINE HCL 50 MG/ML VIAL IV PUSH ONE (22:30)
[2017-01-03] VITALS: BP 114/71; PULSE 80; RESP 20; TEMP 98.4; O2SAT 99
[2017-01-03 00:10] VITALS: BP 109/60; TEMP 99.5
[2017-01-03 06:33] LABS: AUTOMATED NEUTROPHIL # 4.9 TH/MM3 (1.8-7.7); BASOPHIL % 0.6 % (0.0-2.0); EOSINOPHIL # 0.2 TH/MM3 (0-0.4); EOSINOPHIL % 2.7 % (0.0-4.0); HEMATOCRIT 31.5 % (39.0-51.0); HEMO FLAGS DIFF FINAL; LYMPH % 22.5 % (9.0-44.0); LYMPHOCYTE # 1.7 TH/MM3 (1.0-4.8); MEAN CELL VOLUME 80.2 FL (80.0-100.0); MEAN CORPUSCULAR HEMOGLOBIN 25.7 PG (27.0-34.0); MEAN CORPUSCULAR HGB CONC 32.1 % (32.0-36.0); MONO % 9.4 % (0.0-8.0); NEUT % 64.8 % (16.0-70.0); PLATELET COUNT 317 TH/MM3 (150-450); RED BLOOD COUNT 3.92 MIL/MM3 (4.50-5.90); RED CELL DISTRIBUTION WIDTH 14.2 % (11.6-17.2); WHITE BLOOD COUNT 7.5 TH/MM3 (4.0-11.0)
[2017-01-03 06:45] LABS: BICARBONATE 24.2 MEQ/L (21.0-32.0)
[2017-01-03 08:00] VITALS: BP 125/78; PULSE 87; RESP 18; TEMP 96.4; O2SAT 100
[2017-01-03] MEDS ORDERED: VANCOMYCIN INJ 1,000 MG in SODIUM CHLOR 0.9% 250 ML INJ 250 ML IV SCH (08:00)
[2017-01-03] MEDS: SODIUM CHLORIDE 0.9% FLUSH 10 ML FLUSH IV FLUSH SCH ×2 (08:21→20:35)
[2017-01-03] MEDS ORDERED: DOCUSATE SODIUM 50 MG/SENNA 8.6 MG TAB PO SCH (09:00)
--- NOTE | 2017-01-03 09:08 | EKG ---
Date Performed: 01/02/2017 Time Performed: 21:06:01 PTAGE: 31 years EKG: SINUS TACHYCARDIA NONSPECIFIC ST & T-WAVE ABNORMALITY ABNORMAL RHYTHM ECG PREVIOUS TRACING : 11/24/2016 00.32 DOCTOR: Oliver Gilmore Interpretating Date/Time 01/03/2017 09:06:50
--- NOTE | 2017-01-03 10:45 | HHI.HP ---
[facility] Service [facility] Primary Care Physician No Primary Care Physician Admission Diagnosis sepsis, cellulitis left hand Diagnoses: (1) Cellulitis of left index finger (2) Sepsis Chief Complaint: Left index finger redness and swelling Travel History International Travel<30 Days: No Contact w/Intl Traveler <30 Da: No Traveled to Known Affected Are: No Sepsis Criteria SIRS Criteria (2 or more): Heart rate over 90 History of Present Illness 31-year-old man with history of illicit drug use including IV drug abuse and polysubstance who has recently undergone right hand fasciotomy, carpal tunnel release, deep dorsal forearm fasciotomy, deep volar forearm arm fasciotomy due to compartment syndrome presented to the ED yesterday for evaluation of left index finger swelling and redness. Patient woke up from sleep with a sensation of left index finger swelling and thought this was the result of a spider bite. He Reported severe pain to the left index finger. He denied injecting any drug into that finger although patient UDS was positive. He admits using cocaine and marijuana 3 days ago. He has no GI bleed. Review of Systems Except as stated in HPI: all other systems reviewed are Neg Past Family Social History Past Medical History History of IV drug abuse and polysubstance abuse Asthma as a child Past Surgical History S/P right hand fasciotomy, carpal tunnel release, deep dorsal forearm fasciotomy , deep volar forearm arm fasciotomy November 2016 Reported Medications Not Currently on any medication Allergies: Coded Allergies: No Known Allergies (Verified Adverse Reaction, Unknown, 01/02/17) Family History Mother with a history of anxiety, depression, Social History Patient reports tobacco use, illicit drug intake Physical Exam Vital Signs Vital Signs Date Time Temp Pulse Resp B/P (MAP) Pulse Ox O2 Delivery O2 Flow Rate FiO2 01/03/17 00:10 99.5 86 20 109/60 (76) 98 01/03/17 00:00 98.4 80 20 114/71 (85) 99 01/02/17 22:57 90 20 112/59 (76) 99 01/02/17 22:41 100.9 101 20 115/65 (82) 99 Room Air 01/02/17 22:00 96 20 108/55 (72) 99 01/02/17 21:27 104 20 145/73 (97) 98 01/02/17 21:15 101 20 01/02/17 21:02 104 20 144/82 (102) 98 01/02/17 19:52 102.0 107 20 150/85 (106) 98 Room Air 01/02/17 19:45 98 Room Air 01/02/17 19:45 98 Room Air 01/02/17 18:52 99.6 111 16 131/76 (94) 98 Physical Exam GENERAL: This is a well-nourished, well-developed patient, in no apparent distress. SKIN: No rashes, ecchymoses or lesions. Cool and dry. Swelling and Erythema left index finger HEAD: Atraumatic. Normocephalic. No temporal or scalp tenderness. EYES: Pupils equal round and reactive. Extraocular motions intact. No scleral icterus. No injection or drainage. ENT: Nose without bleeding, purulent drainage or septal hematoma. Throat without erythema, tonsillar hypertrophy or exudate. Uvula midline. Airway patent. NECK: Trachea midline. No JVD or lymphadenopathy. Supple, nontender, no meningeal signs. CARDIOVASCULAR: Regular rate and rhythm without murmurs, gallops, or rubs. RESPIRATORY: Clear to auscultation. Breath sounds equal bilaterally. No wheezes , rales, or rhonchi. GASTROINTESTINAL: Abdomen soft, non-tender, nondistended. No hepato-splenomegaly , or palpable masses. No guarding. MUSCULOSKELETAL: Extremities without clubbing, cyanosis, or edema. No joint tenderness, effusion, or edema noted. No calf tenderness. Negative Homans sign bilaterally. NEUROLOGICAL: Awake and alert. Cranial nerves II through XII intact. Motor and sensory grossly within normal limits. Five out of 5 muscle strength in all muscle groups. Normal speech. Laboratory Laboratory Tests Test 01/02/17 19:45 01/02/17 20:40 01/02/17 22:25 01/03/17 05:30 White Blood Count 11.8 7.5 Red Blood Count 3.88 3.92 Hemoglobin 10.4 10.1 Hematocrit 31.5 31.5 Mean Corpuscular Volume 81.4 80.2 Mean Corpuscular Hemoglobin 26.9 25.7 Mean Corpuscular Hemoglobin Concent 33.0 32.1 Red Cell Distribution Width 14.6 14.2 Platelet Count 351 317 Mean Platelet Volume 6.7 7.6 Neutrophils (%) (Auto) 83.8 64.8 Lymphocytes (%) (Auto) 8.5 22.5 Monocytes (%) (Auto) 6.9 9.4 Eosinophils (%) (Auto) 0.6 2.7 Basophils (%) (Auto) 0.2 0.6 Neutrophils # (Auto) 9.9 4.9 Lymphocytes # (Auto) 1.0 1.7 Monocytes # (Auto) 0.8 0.7 Eosinophils # (Auto) 0.1 0.2 Basophils # (Auto) 0.0 0.0 CBC Comment DIFF FINAL DIFF FINAL Differential Comment Blood Urea Nitrogen 8 7 Creatinine 1.10 0.74 Random Glucose 101 91 Total Protein 7.7 Albumin 2.9 Calcium Level 8.2 8.0 Alkaline Phosphatase 83 Aspartate Amino Transf (AST/SGOT) 8 Alanine Aminotransferase (ALT/SGPT) 15 Total Bilirubin 0.3 Sodium Level 136 141 Potassium Level 3.4 4.0 Chloride Level 103 110 Carbon Dioxide Level 24.9 24.2 Anion Gap 8 7 Estimat Glomerular Filtration Rate 78 123 Lactic Acid Level 2.2 1.2 Urine Color YELLOW Urine Turbidity CLEAR Urine pH 5.5 Urine Specific [place] 1.026 Urine Protein NEG Urine Glucose (UA) NEG Urine Ketones NEG Urine Occult Blood NEG Urine Nitrite NEG Urine Bilirubin NEG Urine Leukocyte Esterase NEG Urine Squamous Epithelial Cells 0-5 Urine Calcium Oxalate Crystals MOD Urine Hyaline Casts 3-5 Urine Granular Casts 0-2 Urine Mucus MOD Microscopic Urinalysis Comment CULT NOT INDICATED Urine Opiates Screen POS Urine Barbiturates Screen NEG Urine Amphetamines Screen NEG Urine Benzodiazepines Screen POS Urine Cocaine Screen POS Urine Cannabinoids Screen POS Date/Time Source Procedure Growth Status 01/02/17 20:00 Blood Peripheral Aerobic Blood Culture Pending Received 01/02/17 20:00 Blood Peripheral Anaerobic Blood Culture Pending Received 01/02/17 19:40 Wound Finger Gram Stain - Final Resulted 01/02/17 19:40 Wound Finger Wound Culture Pending Resulted Result Diagram: 01/03/1730 01/03/17 0530 Imaging Last Impressions Chest X-Ray 01/02/171941 Signed Impressions: Service Date/Time: Trena, January 02, 2017 20:38 - CONCLUSION: No acute cardiopulmonary disease. Raymond Wheat MD Capalfredo VTE Risk Assessment Caprini VTE Risk Assessment: No/Low Risk (score <= 1) Caprini Risk Assessment Model Point Value = 1 Point Value = 2 Point Value = 3 Point Value = 5 Age 41-60 Minor surgery BMI > 25 kg/m2 Swollen legs Varicose veins or History of unexplained or recurrent spontaneous Oral contraceptives or hormone replacement Sepsis (< 1 month) Serious lung disease, including pneumonia (< 1 month) Abnormal pulmonary function Acute myocardial infarction Congestive heart failure (< 1 month) History of inflammatory bowel disease Medical patient at bed rest Age 61-74 Arthroscopic surgery Major open surgery (> 45 min) Laparoscopic surgery (> 45 min) Malignancy Confined to bed (> 72 hours) Immobilizing plaster cast Central venous access Age >= 75 History of VTE Family history of VTE Factor V Leiden Prothrombin [id number] Lupus anticoagulant Anticardiolipin antibodies Elevated serum homocysteine Heparin-induced thrombocytopenia Other congenital or acquired thrombophilia Stroke (< 1 month) Elective arthroplasty Hip, pelvis, or leg fracture Acute spinal cord injury (< 1 month) Prophylaxis Regimen Total Risk Factor Score Risk Level Prophylaxis Regimen 0-1 Low Early ambulation 2 Moderate Order ONE of the following: *Sequential Compression Device (SCD) *Heparin 5000 units SQ BID 3-4 Higher Order ONE of the following medications: *Heparin 5000 units SQ TID *Enoxaparin/Lovenox 40 mg SQ daily (WT < 150 kg, CrCl > 30 mL/min) *Enoxaparin/Lovenox 30 mg SQ daily (WT < 150 kg, CrCl > 10-29 mL/min) *Enoxaparin/Lovenox 30 mg SQ BID (WT < 150 kg, CrCl > 30 mL/min) AND/OR *Sequential Compression Device (SCD) 5 or more Highest Order ONE of the following medications: *Heparin 5000 units SQ TID (Preferred with Epidurals) *Enoxaparin/Lovenox 40 mg SQ daily (WT < 150 kg, CrCl > 30 mL/min) *Enoxaparin/Lovenox 30 mg SQ daily (WT < 150 kg, CrCl > 10-29 mL/min) *Enoxaparin/Lovenox 30 mg SQ BID (WT < 150 kg, CrCl > 30 mL/min) AND *Sequential Compression Device (SCD) Assessment and Plan Problem List: (1) Cellulitis of left index finger ICD Code: L03.012 - Cellulitis of left finger Assessment and Plan 31-year-old man with Cellulitis of left index finger in a patient with history of IV drug use Currently on vancomycin IV every 8 hours pending culture report. Will give 1 more day of IV antibiotic Pain management accordingly Advise on IV drug cessation Leukocytosis From above infectious processes and now resolved History of compartment syndrome right upper extremity Chronic History of hepatitis C Chronic, IV drug use UDS positive for cocaine and marijuana. Patient advised on cessation DVT prophylaxis: Bilateral SCDs Code Status Full code Discussed Condition With Patient Physician Certification 2 Midnight Certification Type: Admission for Inpatient Services Order for Inpatient Services The services are ordered in accordance with Medicare regulations or non- Medicare payer requirements, as applicable. In the case of services not specified as inpatient-only, they are appropriately provided as inpatient services in accordance with the 2-midnight benchmark. Estimated LOS (days): 2 days is the estimated time the patient will need to remain in the hospital, assuming treatment plan goals are met and no additional complications. Post-Hospital Plan: Not yet determined Bear Bunch MD Jan 03, 2017 10:45
[2017-01-03] MEDS: VANCOMYCIN 1,000 MG/NS 250 ML IV SCH ×4 (11:47→20:35)
[2017-01-03 12:00] VITALS: BP 139/80; PULSE 87; RESP 14; TEMP 98.6; O2SAT 100
[2017-01-03 16:00] VITALS: BP 135/89; PULSE 92; RESP 16; TEMP 98.1; O2SAT 99
[2017-01-03 20:00] VITALS: BP 114/64; PULSE 88; RESP 20; TEMP 96.6; O2SAT 98
[2017-01-03] MEDS: KETOROLAC TROMETHAMINE 10 MG TAB PO PRN (20:43)
[2017-01-04] VITALS: BP 110/58; PULSE 80; RESP 20; TEMP 97.1; O2SAT 98
[2017-01-04] MEDS: VANCOMYCIN 1,000 MG/NS 250 ML IV SCH ×6 (04:41→19:01)
[2017-01-04] MEDS: KETOROLAC TROMETHAMINE 10 MG TAB PO PRN ×3 (04:41→18:59)
[2017-01-04 08:00] VITALS: BP 138/76; PULSE 75; RESP 16; TEMP 96.7; O2SAT 100
[2017-01-04] MEDS: ONDANSETRON HCL 4 MG/2 ML VIAL IVP PRN ×2 (10:37→18:58)
[2017-01-04] MEDS: ACETAMINOPHEN 325 MG TAB PO PRN ×2 (10:37→19:00)
[2017-01-04] MEDS: SODIUM CHLORIDE 0.9% FLUSH 10 ML FLUSH IV FLUSH SCH (10:38)
--- NOTE | 2017-01-04 11:39 | HHI.PR ---
Subjective Remarks Follow-up cellulitis of left index finger 01/04/17-patient seen and examined, reports improvement of tenderness of left index finger as well as erythema. Currently afebrile. Objective Vitals Vital Signs Date Time Temp Pulse Resp B/P (MAP) Pulse Ox O2 Delivery O2 Flow Rate FiO2 01/04/17 08:00 96.7 75 16 138/76 (96) 100 01/04/17 00:00 97.1 80 20 110/58 (75) 98 Automatic Cuff 01/03/17 20:00 96.6 88 20 114/64 (81) 98 01/03/17 16:00 98.1 92 16 135/89 (104) 99 01/03/17 12:00 98.6 87 14 139/80 (99) 100 I/O 01/03/17 01/03/17 01/03/17 01/04/17 01/04/17 01/04/17 06:59 14:59 22:59 06:59 14:59 22:59 Intake Total 570 ml 562 ml 694 ml 265 ml Output Total 2000 ml 775 ml 1200 ml 100 ml Balance -1430 ml -213 ml -506 ml 165 ml Intake Oral 120 ml 462 ml 444 ml IV Total 450 ml 100 ml 250 ml 265 ml Output Urine Total 2000 ml 775 ml 1200 ml 100 ml # Voids 3 2 2 3 # Bowel Movements 0 2 0 Result Diagram: 01/03/17 0530 01/04/17 0710 Imaging Last Impressions Chest X-Ray 01/02/171941 Signed Impressions: Service Date/Time: Monday, January 02, 2017 20:38 - CONCLUSION: No acute cardiopulmonary disease. Raymond Wheat MD Objective Remarks GENERAL: NAD SKIN: Warm and dry. HEAD: Normocephalic. EYES: No scleral icterus. No injection or drainage. NECK: Supple, trachea midline. No JVD or lymphadenopathy. CARDIOVASCULAR: Regular rate and rhythm without murmurs, gallops, or rubs. RESPIRATORY: Breath sounds equal bilaterally. No accessory muscle use. GASTROINTESTINAL: Abdomen soft, non-tender, nondistended. MUSCULOSKELETAL: No cyanosis, or edema. swelling left index finger with minimal redness BACK: Nontender without obvious deformity. No CVA tenderness. A/P Problem List: (1) Cellulitis of left index finger ICD Code: L03.012 - Cellulitis of left finger Assessment and Plan 31-year-old man with Cellulitis of left index finger in a patient with history of IV drug use Continue vancomycin IV every 8 hours pending culture report. Cultures NTD x 2 Pain management accordingly Advise on IV drug cessation Leukocytosis From above infectious processes and now resolved History of compartment syndrome right upper extremity Chronic History of hepatitis C Chronic, IV drug use UDS positive for cocaine and marijuana. Patient advised on cessation DVT prophylaxis: Bilateral SCDs Bear Bunch MD Jan 04, 2017 11:39
[2017-01-04] MEDS ORDERED: PHARMACY ORDERED LAB ONE (11:45)
[2017-01-04] MEDS ORDERED: LACTCHW3 CHEW (11:58)
[2017-01-04] MEDS ORDERED: CEPH-460 PO (11:58)
[2017-01-04] MEDS ORDERED: BACT800T5 PO (11:58)
[2017-01-04 12:00] VITALS: BP 131/75; PULSE 75; RESP 16; TEMP 96.2; O2SAT 98
--- NOTE | 2017-01-04 15:10 | HHI.DS ---
Discharge Summary Admission Date Jan 02, 2017 at 22:17 Discharge Date: Jan 04, 2017 Admitting Diagnosis sepsis, cellulitis left hand (1) Cellulitis of left index finger ICD Code: L03.012 - Cellulitis of left finger Procedures none Brief History - From Admission 31-year-old man with history of illicit drug use including IV drug abuse and polysubstance who has recently undergone right hand fasciotomy, carpal tunnel release, deep dorsal forearm fasciotomy, deep volar forearm arm fasciotomy due to compartment syndrome presented to the ED yesterday for evaluation of left index finger swelling and redness. Patient woke up from sleep with a sensation of left index finger swelling and thought this was the result of a spider bite. He Reported severe pain to the left index finger. He denied injecting any drug into that finger although patient UDS was positive. He admits using cocaine and marijuana 3 days ago. He has no GI bleed. CBC/BMP: 01/03/17 0530 01/04/17 0710 Significant Findings Laboratory Tests Test 01/02/17 19:45 01/02/17 20:40 01/02/17 22:25 01/03/17 05:30 White Blood Count 11.8 TH/MM3 (4.0-11.0) Red Blood Count 3.88 MIL/MM3 (4.50-5.90) 3.92 MIL/MM3 (4.50-5.90) Hemoglobin 10.4 GM/DL (13.0-17.0) 10.1 GM/DL (13.0-17.0) Hematocrit 31.5 % (39.0-51.0) 31.5 % (39.0-51.0) Mean Corpuscular Hemoglobin 26.9 PG (27.0-34.0) 25.7 PG (27.0-34.0) Mean Platelet Volume 6.7 FL (7.0-11.0) Neutrophils (%) (Auto) 83.8 % (16.0-70.0) Lymphocytes (%) (Auto) 8.5 % (9.0-44.0) Neutrophils # (Auto) 9.9 TH/MM3 (1.8-7.7) Albumin 2.9 GM/DL (3.4-5.0) Calcium Level 8.2 MG/DL (8.5-10.1) 8.0 MG/DL (8.5-10.1) Aspartate Amino Transf (AST/SGOT) 8 U/L (15-37) Potassium Level 3.4 MEQ/L (3.5-5.1) Estimat Glomerular Filtration Rate 78 ML/MIN (>89) Lactic Acid Level 2.2 mmol/L (0.4-2.0) Urine Calcium Oxalate Crystals MOD /hpf (NONE) Urine Hyaline Casts 3-5 /lpf (RARE) Urine Mucus MOD /lpf (OCC) Urine Opiates Screen POS (NEG) Urine Benzodiazepines Screen POS (NEG) Urine Cocaine Screen POS (NEG) Urine Cannabinoids Screen POS (NEG) Monocytes (%) (Auto) 9.4 % (0.0-8.0) Chloride Level 110 MEQ/L (98-107) Test 01/04/17 07:10 01/04/17 11:50 PE at Discharge GENERAL: NAD SKIN: Warm and dry. HEAD: Normocephalic. EYES: No scleral icterus. No injection or drainage. NECK: Supple, trachea midline. No JVD or lymphadenopathy. CARDIOVASCULAR: Regular rate and rhythm without murmurs, gallops, or rubs. RESPIRATORY: Breath sounds equal bilaterally. No accessory muscle use. GASTROINTESTINAL: Abdomen soft, non-tender, nondistended. MUSCULOSKELETAL: No cyanosis, or edema. swelling left index finger with minimal redness BACK: Nontender without obvious deformity. No CVA tenderness. Hospital Course Patient admitted secondary to left second index cellulitis for which he was started on IV vancomycin with significant improvements of symptoms. Culture report remained negative prior to discharge. DVT proximal provided. Patient will be discharged home on oral antibiotics Pt Condition on Discharge: Stable Discharge Disposition: Discharge Home Discharge Time: <= 30 minutes Discharge Instructions DIET: Follow Instructions for: As Tolerated, No Restrictions Activities you can perform: Regular-No Restrictions Follow up Referrals: PCP Follow-up - 1 Week New Medications: Cephalexin (Keflex) 500 Mg Cap 500 MG PO Q8H for Infection, #21 CAP 0 Refills Lactobacillus Acidophilus (Lactinex) 1 Chew 1 TAB CHEW DAILY for Nutritional Supplement, #30 TAB 0 Refills Sulfamethoxazole-Trimethoprim (Bactrim DS) 800-160 Mg Tab 1 TAB PO BID for Infection, #14 TAB 0 Refills Discontinued Medications: Clindamycin (Clindamycin) 300 Mg Cap 300 MG PO BID for Infection, CAP 0 Refills Gabapentin (Gabapentin) 300 Mg Cap 300 MG PO BID, #60 CAP 0 Refills Bear Bunch MD Jan 04, 2017 15:10
[2017-01-04 16:00] VITALS: BP 115/65; PULSE 75; RESP 16; TEMP 97; O2SAT 99
[2017-01-04 20:00] VITALS: BP 121/76; PULSE 79; RESP 16; TEMP 98.8; O2SAT 99
== END 2017-01-04 20:18 | disposition home or self-care (01) | DRG 603 ==
LOC: PHED 18:41 → PHEDA 22:17 → PH3B 01-03 00:02
PROVIDERS: ADMIT Hospitalist; ATTEND Hospitalist
DX: L03.012 Cellulitis of left finger (principal); F11.10 Opioid abuse, uncomplicated; F14.10 Cocaine abuse, uncomplicated; F12.10 Cannabis abuse, uncomplicated; Z72.0 Tobacco use; Z86.19 Personal history of other infectious and parasitic diseases
CPT/HCPCS: 71020; 80048; 80053; 80202; 80307; 81001; 82565; 82948; 83605; 85025; 87040; 87070; 87205; 93005; 96361; 96365; 96375; J1200; J1885; J2405; J3370; J7030; J7040; J7050